=== PATIENT | male | born 1985 | race Caucasian/White ===

== ENCOUNTER 2023-05-25 11:25 | Emergency (ER) | payer OTHER, SELFPAY ==
[2023-05-25 11:36] VITALS: BP 113/79; PULSE 64; RESP 20; TEMP 36.5; O2SAT 96; BMI 34.2
--- NOTE | 2023-05-25 11:42 | ECG_ITS ---
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
--- NOTE | 2023-05-25 11:42 | XR_ITS ---
The [place] [id number] Patient Name: SALOME DONOVAN MRN: [id number] date: 1985 Sex: M Assigned Patient Location: ER Current Patient Location: ED.MAIN Accession/Order Number: [id number] Exam Date: 05/25/2023 11:49 Report Date: 05/25/2023 12:06 At the request of: SUZANNE LITTLEJOHN Procedure: XR chest 1V EXAM: XR chest 1V HISTORY: chest pain COMPARISON: 02/07/2022 TECHNIQUE: AP view of the chest. FINDINGS: The cardiomediastinal silhouette is normal. The lungs are clear. 4 mm pulmonary nodule of the left midlung field, unchanged. There is no pneumothorax. No pleural effusion is noted. The osseous structures are intact. XR/XR chest 1V IMPRESSION: No acute cardiopulmonary process. Electronically authenticated by: MELONIE YOST Date: 05/25/2023 12:06
[2023-05-25 12:01] LABS: Basophils Percent Auto 0.6 % (0.2-2.0); Eosinophils Absolute Auto 0.2 10^3/uL (0.0-0.7); Eosinophils Percent Auto 2.3 % (0.9-7.0); Hematocrit 45.2 % (42.0-54.0); Hemoglobin 15.3 g/dL (14.0-18.0); Immature Granulocytes Abs Auto 0.03 10^3/uL (0.00-0.03); Immature Granulocytes Pct Auto 0.5 % (0.0-0.5); Lymphocytes Absolute Auto 2.9 10^3/uL (1.2-3.8); Lymphocytes Percent Auto 43.5 % (20.5-60.0); Mean Corpuscular HGB Conc 33.8 g/dL (29.9-35.2); Mean Corpuscular Hemoglobin 29.9 pg (25.9-34.0); Mean Corpuscular Volume 88.5 fL (80.0-94.0); Mean Platelet Volume 9.6 fL (9.5-13.5); Monocytes Absolute Auto 0.8 10^3/uL (0.3-0.8); Monocytes Percent Auto 11.8 % (1.7-12.0); Neutrophils Absolute Auto 2.7 10^3/uL (1.4-6.5); Neutrophils Percent Auto 41.3 % (43.0-75.0); Platelet Count 266 10^3/uL (150-450); Red Blood Count 5.11 10^6/uL (4.70-6.10); Red Cell Distribution Width 11.9 % (11.0-15.0); White Blood Count 6.6 10^3/uL (4.0-11.0)
[2023-05-25 12:19] VITALS: BP 121/80; PULSE 55; RESP 18; O2SAT 98
[2023-05-25 12:22] LABS: Alanine Aminotransferase 89 U/L (16-63); Albumin Globulin Ratio 1.2; Albumin Level 4.2 g/dL (3.4-5.0); Alkaline Phosphatase 56 U/L (46-116); Anion Gap 13.6; Aspartate Amino Transferase 34 U/L (15-37); BUN Creatinine Ratio 19.2; Bilirubin Total 0.4 mg/dL (0.2-1.0); Calcium 9.5 mg/dL (8.5-10.1); Carbon Dioxide 27.3 mmol/L (21.0-32.0); Chloride 103 mmol/L (98-107); Estimated GFR (African America >60 (>=60); Estimated GFR (Non-African Ame >60 (>=60); Globulin 3.4 g/dL; Glucose 103 mg/dL (74-106); Potassium 3.9 mmol/L (3.5-5.1); Sodium 140 mmol/L (136-145); Total Protein 7.6 g/dL (6.4-8.2)
[2023-05-25 12:27] LABS: Troponin I High Sensitivity <4.0 pg/mL (4.0-76.1)
--- NOTE | 2023-05-25 12:58 | ED_ITS ---
HPI - General Adult General Chief complaint: Chest Pain Stated complaint: CHEST PAIN Time Seen by Provider: 05/25/23 12:41 Source: patient Mode of arrival: walk-in Limitations: no limitations History of Present Illness HPI narrative: Patient is a 38-year-old male who started having left chest electrical shock that started around 9:45 AM this morning when he was bending over to push parts through. 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 Patient came in at 11:00 to finally to be evaluated. Patient has a heart score of 0. Patient has no rash. Patient has no recent heavy lifting, twisting or turning. No headache. No neck pain. No shortness of breath, nausea, vomiting, or any other acute complaints. Patient does state there is intermittent esophageal spasm. Patient states it will take acid reflux medication intermittently, does not take it daily. No black stool. No other acute complaints. Heart score 0 All systems are negative except as noted/marked. All systems reviewed and otherwise negative. Nurses note and vital signs reviewed and patient is not hypoxic. General: The patient appears well and in no apparent distress. Patient is resting comfortably on cart. Patient is not toxic, lethargic, or listless Skin: Warm, dry, no pallor noted. There is no rash noted. No petechiae, purpura. Head: Normocephalic, atraumatic Eye: Normal conjunctiva, no drainage, EOMI. PERRL Ears, Nose, Mouth, and Throat: oral mucosa is moist. Nares patent. Mouth without vesicles. Cardiovascular: Regular Rate and Rhythm, no murmur, gallop, rub; no reproducible tenderness to palpation to bilateral anterior, lateral, posterior chest wall. Respiratory: Patient is in no distress, no accessory muscle use, lungs are clear to auscultation, no wheezing, rales or rhonchi Back: non-tender, no CVA tenderness bilaterally to percussion. No CT LS midline pain GI: Obese, no tenderness to palpation, no masses appreciated. No rebound, gu arding, or rigidity noted. No distention Musculoskeletal: Patient has full range of motion of all of the extremities, no motor, sensory, or focal neurological deficits Neurological: A&O x4, normal speech Psychiatric: Cooperative Related Data Home Medications Medication Instructions Recorded Confirmed No Known Home Medications 05/25/23 05/25/23 Allergies Allergy/AdvReac Type Severity Reaction Status Date / Time Penicillins Allergy Severe Hives Verified 05/25/23 11:36 Exam Constitutional Vital Signs, click to edit/add: Last Vital Signs Temp 97.7 F 05/25/23 11:36 Pulse 55 L 05/25/23 12:19 Resp 18 05/25/23 12:19 BP 121/80 05/25/23 12:19 Pulse Ox 98 05/25/23 12:19 O2 Del Method Room Air 05/25/23 11:36 Course Vital Signs Vital signs: Vital Signs Temperature 97.7 F 05/25/23 11:36 Pulse Rate 64 05/25/23 11:36 Respiratory Rate 20 05/25/23 11:36 Blood Pressure 113/79 05/25/23 11:36 Pulse Oximetry 96 05/25/23 11:36 Oxygen Delivery Method Room Air 05/25/23 11:36 Temperature 97.7 F 05/25/23 11:36 Pulse Rate 55 L 05/25/23 12:19 Respiratory Rate 18 05/25/23 12:19 Blood Pressure 121/80 05/25/23 12:19 Pulse Oximetry 98 05/25/23 12:19 Oxygen Delivery Method Room Air 05/25/23 11:36 Medical Decision Making MDM Narrative Medical decision making narrative: Heart score 0 Patient lab testing shows no acute findings, EKG was negative. Chest x-ray negative. Patient was given Pepcid and GI cocktail prior to discharge. Patient will follow-up with and establish PCP to have additional outpatient testing if indicated. No questions at discharge. Work note was given with restrictions for the weekend Lab Data Lab results reviewed: Yes I reviewed the patient's lab results Labs: Lab Results 05/25/23 Range/Units 11:48 WBC 6.6 (4.0-11.0) 10^3/uL RBC 5.11 (4.70-6.10) 10^6/uL Hgb 15.3 (14.0-18.0) g/dL Hct 45.2 (42.0-54.0) % MCV 88.5 (80.0-94.0) fL MCH 29.9 (25.9-34.0) pg MCHC 33.8 (29.9-35.2) g/dL RDW 11.9 (11.0-15.0) % Plt Count 266 (150-450) 10^3/uL MPV 9.6 (9.5-13.5) fL Neut % (Auto) 41.3 L (43.0-75.0) % Lymph % (Auto) 43.5 (20.5-60.0) % [place] % (Auto) 11.8 (1.7-12.0) % Eos % (Auto) 2.3 (0.9-7.0) % Baso % (Auto) 0.6 (0.2-2.0) % Neut # (Auto) 2.7 (1.4-6.5) 10^3/uL Lymph # (Auto) 2.9 (1.2-3.8) 10^3/uL [place] # (Auto) 0.8 (0.3-0.8) 10^3/uL Eos # (Auto) 0.2 (0.0-0.7) 10^3/uL Baso # (Auto) 0.0 (0.0-0.1) 10^3/uL Abs Immat Gran (auto) 0.03 (0.00-0.03) 10^3/uL Imm/Tot Granulo (auto) 0.5 (0.0-0.5) % Sodium 140 (136-145) mmol/L Potassium 3.9 (3.5-5.1) mmol/L Chloride 103 (98-107) mmol/L Carbon Dioxide 27.3 (21.0-32.0) mmol/L Anion Gap 13.6 BUN 19.0 H (7.0-18.0) mg/dL Creatinine 0.99 (0.70-1.30) mg/dL Est GFR ( Amer) >60 (>=60) Est GFR (Non-Af Amer) >60 (>=60) BUN/Creatinine Ratio 19.2 Glucose 103 (74-106) mg/dL Calcium 9.5 (8.5-10.1) mg/dL Total Bilirubin 0.4 (0.2-1.0) mg/dL AST 34 (15-37) U/L ALT 89 H (16-63) U/L Alkaline Phosphatase 56 (46-116) U/L Troponin I High Sens <4.0 L (4.0-76.1) pg/mL Total Protein 7.6 (6.4-8.2) g/dL Albumin 4.2 (3.4-5.0) g/dL Globulin 3.4 g/dL Albumin/Globulin Ratio 1.2 Imaging Data Chest x-ray: Radiologist's impression: ITS Impressions Chest X-Ray 05/25/23 11:42 IMPRESSION: No acute cardiopulmonary process. Electronically authenticated by: MELONIE YOST Date: 05/25/2023 12:06 ECG Data Attestation: I personally reviewed and interpreted this ECG as follows: (EKG interpretation. Normal sinus rhythm at 50 beats a minute. Normal axis deviation. No acute ST elevation, no acute ectopy. QTc of 388) Discharge Plan Discharge Stand Alone Forms: Work/School Release, Portal Instructions Chief Complaint: Chest Pain Clinical Impression: Atypical chest pain Patient Disposition: Home, Self-Care Time of Disposition Decision: 13:52 Condition: Fair Prescriptions / Home Meds: No Action No Known Home Medications Instructions: Chest Pain (ED), GERD (Gastroesophageal Reflux Disease) (ED) Additional Instructions: Start taking daily medication for antacid for the next 2 weeks to see if it helps with your pain. Use xygv-hsr-enbhhlx medication such as Pepcid, Zantac, Prilosec or Nexium. Also use cuyt-acp-pleezwb Maalox or Mylanta as needed for acute flareup If you are continuing to have pain or pressure, establish with PCP and have outpatient stress test or echocardiogram as needed or indicated. Return to the ER if any significant symptoms. Referrals: Physician,Non-Staff, MD [Primary Care Provider] - 1 week
[2023-05-25] MEDS: FAMOTIDINE 20 MG TABLET PO (14:01)
[2023-05-25] MEDS: lidocaine HCL 15 ML, MAG HYDROX/ALUMINUM HYD/SIMETH 30 ML, HYOSCYAMINE SULFATE 0.25 MG PO (14:02)
[2023-05-25 14:06] VITALS: BP 121/82; PULSE 60; RESP 18; O2SAT 100
== END 2023-05-25 14:07 | disposition home or self-care (01) ==
PROVIDERS: Emergency Provider Emergency Medicine
DX: R07.89 Other chest pain (principal); E66.9 Obesity, unspecified; Z68.34 Body mass index [BMI] 34.0-34.9, adult
CPT/HCPCS: 36415; 71045; 80053; 84484; 85025; 93005; 99285

== ENCOUNTER 2023-12-07 07:16 | Outpatient (OUT) | payer BC, OTHER, SELFPAY ==
--- OUTSIDE RECORDS SUMMARY | 2023-12-07 07:19 | XMS_ITS | CCD ---
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 Role Phone OLAYINKA, DR SAUCEDO Admitting Unavailable REQUEST, DR JUNIOR LISTED Primary Care Unavailearline DUNN, DR TORIN Jackson Consulting Unavailable OLAYINKA, DR SAUCEDO Attending Unavailable OLAYINKA, DR SAUCEDO Consulting Unavailable ELAYNE ALVARADO Attending Unavailable CHAITANYA BORDEN Consulting Unavailable CHRISTIANO, ELAYNE Admitting Unavailable REQUEST, DR JUNIOR LISTED Primary Care Unavaila KARLA Zhou Consulting Unavailable Vianca Waters Attending Unavailable Allergies Allergy Classification Reported Allergen(s) Allergy Type Date of Onset Reaction(s) Facility (2 sources) Amoxicillin; Translations: [amoxicillin] Drug Allergy [facility] (2 sources) Penicillins; Translations: [penicillins] Drug allergy (disorder) [facility] Problems Active Problems Problem Classification Problem Date Documented Da te Episodic/Chronic Nonspecific chest pain (4 sources) Chest pain, unspecified; Translations: [Other chest pain] Onset: 02-07-2022 Episodic Substance-related disorders (1 source) Nicotine dependence, cigarettes, uncomplicated; Translations: [NICOTINE DEPEND CIGARETTES UNCOMP] Onset: 05-20-2021 Chronic Past or Other Problems Problem Classification Problem Date Documented Da te Episodic/Chronic E Codes: Natural/environment (1 source) Exposure to other specified factors, initial encounter; Translations: [EXPOSURE OTHER SPEC FACTORS INITIAL] Onset: 05-20-2021 Episodic Spondylosis; intervertebral disc disorders; other back problems (4 sources) Pain in thoracic spine; Translations: [PAIN IN THORACIC SPINE] Onset: 05-18-2021 Episodic Sprains and strains (1 source) Strain of muscle and tendon of back wall of thorax, initial encounter; Translations: [STRN MSC TENDON BACK WALL THOR INIT] Onset: 05-20-2021 Episodic Results Test Name Value Interpretation Reference Range Facil ity XR CHEST 1 Von 02-07-2022 XR CHEST 1 V EXAMINATION: XR CHES T 1 V HISTORY: CHEST PAIN, UNSPECIFIED ; right chest pain for 2 days COMPARISON: XR RIBS with PA chest 01/06/2019 FINDINGS: LUNGS: Stable small calcified granuloma within left midlung. Underexpanded lungs on today's study without appreciable infiltrates. VASCULATURE: No increased pulmonary vasculature. PLEURA: No pneumothorax, effusion, or pleural thickening. CARDIAC: No cardiomegaly or cardiac silhouette abnormality. MEDIASTINUM: No visible mass or adenopathy. BONES: No fracture or visible bone lesion. OTHER: Negative. IMPRESSION: 1. Low lung volume examination. 2. No acute cardiopulmonary process. Electronically authenticated by: TORIN DUNN Date: 2022-02-07 09:27 Normal [facility] XR TSPINE 2 VIEWSon 05-19-19 22 XR TSPINE 2 VIEWS EXAM: XR TSPINE 2 VIEWS HISTORY: Acute back pain COMPARISON: None. TECHNIQUE: 3 views FINDINGS: Maintenance of the normal cervical lordosis and thoracic kyphosis. Vertebral body heights and alignments exhibit no fracture or listhesis. 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 Intervertebral disc space heights are unremarkable IMPRESSION: Normal thoracic spine x-rays Electronically authenticated by: KARLA TEJEDA Date: 2021-05-18 19:43 Normal [facility] Encounters Encounter Date Encounter Type Care Provider Facility Start: 12-19-2023 ambulatory Vianca Fong lity:[facility] Start: 02-07-2022 End: 02-07-[address] LEWIS BHAGAT Facility:[facility] Start: 05-18-2021 End: 05-18-2021 ambulatory ELAYNE ALVARADO Facility:[facility] Payers Date Payer Category Payer Unknown [id number] [id number] [id number] 1985 Unknown [id number] [id number] [id number] 1985 Unknown [id number] 1959 Unknown [id number] 1959 Unknown [id number] Summary Purpose Family History No Family History Records FoundNo Family History Records Found Advance Directives No Advanced Directives Records FoundNo Advanced Directives Records Found Additional Source Comments (unrecognized sect ion and content) No Status Records FoundNo Status Records Found INFORMATION SOURCE (unrecogn ized section and content) DATE CREATED AUTHOR 02/18/2022 [facility] DATE CREATED AUTHOR AUTHOR'S SAMEER ATMARISA 12/06/2023 [facility] FOR RECORDS PERTAINING TO PATIENTS WHO ARE OR HAVE BEEN ENROLLED IN A CHEMICAL DEPENDENCY/SUBSTANCEABUSE PROGRAM, SOME INFORMATION MAY BE OMITTED. This clinical summary was aggregated from multiple sources. Caution should be exercised in using it in the provision of clinical care. This summary normalizes information from multiple sources, and as a consequence, information in this document may materially change the coding, format and clinical context of patient data. In addition, data may be omitted in some cases. CLINICAL DECISIONS SHOULD BE BASED ON THE PRIMARY CLINICAL RECORDS. [facility]. provides no warranty or guarantee of the accuracy or completeness of information in this document.
--- NOTE | 2023-12-07 07:21 | CT_ITS ---
The [address] [address] Patient Name: SALOME DONOVAN MRN: [id number] date: 1985 Sex: M Assigned Patient Location: CT Current Patient Location: CT Accession/Order Number: [id number] Exam Date: 12/07/2023 08:30 Report Date: 12/07/2023 09:20 At the request of: YOEL CASTREJON Procedure: CT abdomen pelvis w con EXAM: CT abdomen pelvis w con HISTORY: Abdominal Pain R10.9 COMPARISON: None. TECHNIQUE: Following intravenous administration of 100 cc of Omnipaque 300, axial soft tissue windows of the abdomen and pelvis were performed with coronal and sagittal reformats. CT dose reduction technique was used including Automated Exposure Control. Findings: ABDOMEN: There is fatty infiltration of the liver. Focal fatty sparing adjacent to the gallbladder fossa. The gallbladder, pancreas, and adrenal glands are unremarkable. Splenic calcifications likely relating to prior granulomatous disease. No renal stones or collecting system dilatation. Left renal cysts. There is also a left renal low-attenuation lesion, too small to characterize. The visualized portions of the bilateral ureters are nondilated. The bowel is unremarkable without evidence of thickening or reduction. The appendix is nondilated. The aorta is normal caliber. No enlarged abdominal lymph nodes or free abdominal fluid. Pelvis: Unremarkable bladder. The prostate is nonenlarged. No enlarged pelvic lymph nodes or free pelvic fluid. No aggressive sclerotic or lytic osseous lesions. CT/CT abdomen pelvis w con IMPRESSION: 1. No acute abdominal or pelvic abnormality. 2. Fatty liver. Electronically authenticated by: MERYL WELLER Date: 12/07/2023 09:20
== END 2023-12-07 07:17 | disposition home or self-care (01) ==
LOC: CT 07:17
PROVIDERS: PCP Nurse Practitioner Family; Visit Provider Nurse Practitioner Family
DX: R10.9 Unspecified abdominal pain (principal); K76.0 Fatty (change of) liver, not elsewhere classified
CPT/HCPCS: 74177; Q9967

== ENCOUNTER 2024-04-11 11:38 | Emergency (ER) | payer OTHER, SELFPAY ==
[2024-04-11 11:43] VITALS: BP 135/85; PULSE 66; TEMP 36.6; O2SAT 96; BMI 33.8
--- OUTSIDE RECORDS SUMMARY | 2024-04-11 11:55 | XMS_ITS | CCD ---
Author Organization [facility] CliniSymi Care Team Providers Care Health Information Clerk Name Role Phone DR LEWIS BHAGAT Admitting Unavailable REQUEST, DR JUNIOR LISTED Primary Care Unavailearline DUNN, DR OTRIN Jackson Consulting Unavailable OLAYINKA, DR SAUCEDO Attending Unavailable OLAYNIKA, DR SAUCEDO Consulting Unavailable ELAYNE ALVAARDO Attending Unavailable CHAITANYA BORDEN Consulting Unavailable ELAYNE ALVARADO Admitting Unavailable REQUEST, DR JUNIOR LISTED Primary Care UnavailKARLA Ash Consulting Unavailable OYEL CASTREJON Primary Care Physician [phone] Vianca Waters Admitting Unavailable Vianca Waters Attending Unavailable Vianca Waters Referring Unavailable Vianca Waters Attending Unavailable Vianca Waters Attending Unavailable Allergies Allergy Classification Reported Allergen(s) Allergy Type Date of Onset Reaction(s) Facility (2 sources) Amoxicillin; Translations: [amoxicillin] Drug Allergy [facility] Repository (5 sources) Penicillins; Translations: [penicillins] Drug allergy (disorder) [facility] Repository (3 sources) Amoxicillin; Translations: [amoxicillin] Drug Allergy Unknown (qualifier value) [facility] Medications Current Medications Medication Drug Class(es) Dates Sig (Normalized) Sig (Original) bifidobacterium infantis 4 mg oral capsule (3 sources) Start: 12-31-2019 take 1 capsule by mouth once daily Align 4 mg oral capsule 4 mg = 1 cap(s), Oral, Daily, Take after completing the Antibiotics course, # 28 cap(s), Refills(s) 0, Pharmacy: [facility], 180, cm, 12/30/19 8:59:00 EDT, Height/Length Dosing, 112, kg, 12/30/19 8:59:00 EDT, Weight Dosing Start Date: 12/31/19 Status: Ordered cholestyramine resin 4000 mg powder for oral suspension (3 sources) Bile Acid Sequestrant Start: 12-19-2023 Questran 4 g/9 g oral powder = 1 packet(s), Oral, BID, # 60 EA, Refills(s) 2, Pharmacy: [facility], 180, cm, 12/19/23 14:34:00 EDT, Height/Length Dosing, 115.8, kg, 12/19/23 14:34:00 EDT, Weight Dosing Start Date: 12/19/23 Status: Ordered hyoscyamine sulfate 0.125 mg oral tablet (3 sources) Start: 12-19-2023 hyoscyamine 0.125 mg oral Tab 0.125 mg = 1 tab(s), Oral, PRN Nausea/Vomiting, Refills(s) 0 Start Date: 12/19/23 Status: Ordered linaclotide 0.072 mg oral capsule (1 source) Guanylate Cyclase-C Agonist Start: 01-18-2024 take 1 capsule by mouth once daily Linzess 72 mcg oral capsule 72 mcg = 1 cap(s), Oral, Daily, # 30 cap(s), Refills(s) 3, Pharmacy: [facility], 180, cm, 01/18/24 9:06:00 EST, Height/Length Dosing, 118.9, kg, 01/18/24 9:06:00 EST, Weight Dosing Start Date: 01/18/24 Status: Ordered Aleve (3 sources) Nonsteroidal Anti-inflammatory Drug Start: 12-19-2023 take 1 mg by mouth every twelve hours as needed for pain Aleve mg, Oral, q12hr, PRN as needed for pain, Refills(s) 0 Start Date: 12/19/23 Status: Ordered Start: 12-19-2023 take 1 mg by mouth e very twelve hours Aleve mg, Oral, q12hr, Refills(s) 0 Start Date: 12/19/23 Status: Ordered ondansetron 4 mg oral tablet (3 sources) Serotonin-3 Receptor Antagonist Start: 12-19-2023 take 1 tablet by mouth every eight hours as needed for nausea ondansetron 4 mg Tab 4 mg = 1 tab(s), Oral, q8hr, PRN Nausea/Vomiting, Refills(s) 0 Start Date: 12/19/23 Status: Ordered Protonix 40 mg Tab-EC (3 sources) Start: 01-28-2020 take 1 tablet by mouth twice daily 30 minutes before mealtime Protonix 40 mg Tab-EC 40 mg = 1 tab(s), Oral, BID, Take 30 minutes before meals, # 120 tab(s), Refills(s) 11, Pharmacy: [facility], 180, cm, 12/30/19 8:59:00 EDT, Height/Length Dosing, 112, kg, 12/30/19 8:59:00 EDT, Weight Dosing Start Date: 01/28/20 Status: Ordered Completed/Discontinued Medications Medication Drug Class(es) Dates Sig (Normalized) Sig (Original) psyllium 525 mg oral capsule (3 sources) Start: 12-31-2019 take 8 capsules by mouth once daily Metamucil 525 mg oral capsule 1,050 mg = 2 cap(s), Oral, Daily, Take 2 hour apart from the other medications with at least 8 ounces of water, # 160 cap(s), Refills(s) 1, Pharmacy: [facility], 180, cm, 12/30/19 8:59:00 EDT, Height/Length Dosing, 112, kg, 12/30/19 8:59:00 EDT, Weight Dosing Start Date: 12/31/19 Status: Ordered Problems Active Problems Problem Classification Problem Date Documented Da te Episodic/Chronic Abdominal pain (7 sources) Abdominal pain; Translations: [Unspecified abdominal pain] Onset: 12-19-2023 Episodic Esophageal disorders (5 sources) Gastro-esophageal reflux disease with esophagitis; Translations: [Gastro-esophageal reflux disease with esophagitis] Onset: 12-19-2023 Chronic Nausea and vomiting (5 sources) Vomiting; Translations: [Vomiting, unspecified] Onset: 12-19-2023 Episodic Nonspecific chest pain (4 sources) Chest pain, unspecified; Translations: [Other chest pain] Onset: 02-07-2022 Episodic Other and unspecified benign neoplasm (5 sources) History of polyp of colon; Translations: [Personal history of colon polyps, unspecified] Onset: 12-19-2023 Episodic Other gastrointestinal disorders (5 sources) Irritable bowel syndrome; Translations: [Irritable bowel syndrome without diarrhea] Onset: 12-19-2023 Chronic Other gastrointestinal disorders (5 sources) Diarrhea; Translations: [Diarrhea, unspecified] Onset: 12-19-2023 Episodic Other gastrointestinal disorders (5 sources) Abdominal wind pain; Translations: [Gas pain] Onset: 12-19-2023 Episodic Other gastrointestinal disorders (2 sources) Swollen abdomen; Translations: [Abdominal distension (gaseous)] Onset: 12-19-2023 Episodic Other gastrointestinal disorders (3 sources) Abdominal bloating 12-19-2023 Episodic Other gastrointestinal disorders (1 source) Digestive system finding; Translations: [Other specified symptoms and signs involving the digestive system and abdomen] Onset: 01-18-2024 Episodic Other gastrointestinal disorders (1 source) Defecation straining 01-18-2024 Episodic Residual codes; unclassified (2 sources) Family history of malignant neoplasm of digestive organ; Translations: [Family history of malignant neoplasm of digestive organs] Onset: 12-19-2023 Episodic Residual codes; unclassified (3 sources) Family history of colorectal cancer 12-19-2023 Episodic Substance-related disorders (4 sources) Nicotine dependence, cigarettes, uncomplicated; Translations: [Smoker] Onset: 05-20-2021 02-17-2014 Chronic Comment on above: Added secondary to d ocumentation in Social History. Unclassified (3 sources) Finding of sensation of abdomen 12-19-2023 Past or Other Problems Problem Classification Problem [...] Results Test Name Value Interpretation Reference Range Facility Ambulatory Visit Summaryon 1 03-19-2023 Ambulatory Visit Summary Ambulatory Visit Summary SALOME DONOVAN :1985 Visit Date:01/18/2024 Ambulatory Visit Instructions Your Diagnosis GERD with esophagitis Irritable bowel syndrome Abdominal cramping Bloating Diarrhea History of colon polyps Gas pain Vomiting Family history of rectal cancer Left lower quadrant abdominal pain Straining during bowel movements Your Care Team Attending Physician - Jt LAST, Vianca Silva Primary Care Physician - YOEL CASTREJON CNP This Is Your Medications List linaclotide (Linzess 72 mcg oral capsule) Contact prescribing physician if questions or concerns bifidobacterium infantis (Align 4 mg oral capsule) cholestyramine (Questran 4 g/9 g oral powder) hyoscyamine (hyoscyamine 0.125 mg oral Tab) naproxen (Aleve) ondansetron (ondansetron 4 mg Tab) pantoprazole (Protonix 40 mg Tab-EC) psyllium (Metamucil 525 mg oral capsule) Procedures Performed Colonoscopy (01/01/2024), Colonoscopy, EGD (esophagogastroduoden oscopic) electrohydraulic lithotripsy of bezoar in stomach. Discharge Vitals Heart Rate (Peripheral) 67 Blood Pressure 121/83 Height 180 cm Height 71 in Weight 118.9 kg Weight 261.58 lb BMI 36.7 Medications What How Much When Why Instructions New linaclotide (Linzess 72 mcg oral capsule) 1 Capsules By Mouth Every day GERD with esophagitis Irritable bowel syndrome Abdominal cramping Bloating Diarrhea History of colon polyps Gas pain Vomiting Family history of rectal cancer Left lower quadrant abdominal pain Straining during bowel movements Refills: 3 Pickup at [facility] Unchanged bifidobacterium infantis (Align 4 mg oral capsule) 1 Capsules By Mouth Every day Take after completing the Antibiotics course Contact prescribing physician if questions or concerns Unchanged cholestyramine (Questran 4 g/ 9 g oral powder) 1 Packets By Mouth 2 times a day Contact prescribing physician if questions or concerns Unchanged hyoscyamine (hyoscyamine 0.125 mg oral Tab) 1 Tablets By Mouth As needed for Nausea/Vomiting Contact prescribing physician if questions or concerns Unchanged naproxen (Aleve) By Mouth Every 12 hours as needed for as needed for pain Contact prescribing physician if questions or concerns Unchanged ondansetron (ondansetron 4 mg Tab) 1 Tablets By Mouth Every 8 hours as needed for Nausea/Vomiting Contact prescribing physician if questions or concerns Unchanged pantoprazole (Protonix 40 mg Tab-EC) 1 Tablets By Mouth 2 times a day Take 30 minutes before meals Contact prescribing physician if questions or concerns Unchanged psyllium (Metamucil 525 mg oral capsule) 2 Capsules By Mouth Every day Take 2 hour apart from the other medications with at least 8 ounces of water Contact prescribing physician if questions or concerns Pharmacy Information [facility]: [address], [place] [id number] [phone] Allergies amoxicillin (Unknown) penicillins Problems Ongoing - Any problem that you are currently receiving treatment for. Abdominal cramping Bloating Diarrhea Family history of rectal cancer Gas pain GERD with esophagitis History of colon polyps Irritable bowel syndrome Left lower quadrant abdominal pain Smoker.. Straining during bowel movements Upper abdominal pain Vomiting Patient Survey You may receive a survey via text or e-mail asking about your office visit. Please share your experience with us by completing your survey. We appreciate your feedback and thank you for choosing us for your care. Aleja Mason [facility] Gastroenterology Office/Clin ic Noteon 01-18-2024 Gastroenterology Office/Clinic Note Gastroenterology Office/Clinic Note Chief Complaint Stabbing abdominal pain HPI Staff This is a 38 year old male who presents today for a follow-up to Colonoscopy. Patient c/o stabbing abdominal pain. Patient would like Zofran refilled. Last office visit w/ Dr Waters History of Present Illness a flare of abd pain, bloating, vomiting, and diarrhea Did last for 2 weeks Was put on levison and protonix- it helped dad with rectal cancer below age of 60 diarrhea right after eating anything bloating is still there Assessment/Plan 1. GERD with esophagitis (K21.0: Gastro-esophageal reflux disease with esophagitis) 2. Irritable bowel syndrome (K58.9: Irritable bowel syndrome, unspecified) 3. Abdominal cramping (R10.9: Unspecified abdominal pain) 4. Bloating (R14.0: Abdominal distension (gaseous)) 5. Diarrhea (R19.7: Diarrhea, unspecified) 6. Gas pain (R14.1: Gas pain) 7. Vomiting (R11.10: Vomiting, unspecified) 8. History of colon polyps (Z86.0100: Personal history of colon polyps, unspecified) 9. Family history of rectal cancer (Z80.0: Family history of malignant neoplasm of digestive organs) Continue Levsin and PPI Start on Questran twice daily Schedule colonoscopy with random colon biopsies and TI evaluation Might benefit from neuromodulator in the future Colonoscopy w/ Dr Waters 01/01/24 Impression and Plan lax anal tone Skin tags and internal hemorrhoids Diverticulosis Past postmenopausal biopsies Recommendations: Repeat colonoscopy:: In 10 years. Final Diagnosis (Verified) COLON, RANDOM BIOPSY: ??? COLONIC MUCOSA WITH LYMPHOID AGGREGATES, WITHIN NORMAL LIMITS. History of Present Illness I have reviewed HPI staff note, most recent labs and imaging, I agree with the above documentation with the following additions/exceptions : pt with some pain in the stomach comes and goes pt feels life draining out of him pt used to have stabbing pain and gas pt was throwing up Pt felt good after the colonoscopy pt could move 6 BMs a day- sometimes small amounts bloating and gassy some incomplete evacuation Review of Systems PHQ Score Initial Depression Screen Score: 2 SCORE All systems reviewed, negative except as mentioned above Physical Exam Vitals & Measurements HR: 67(Peripheral) BP: 121/83 HT: 71 in HT: 180 cm WT: 118.9 kg WT: 261.58 lb BMI: 36.7 General: alert, no acute distress HEENT: atraumatic normocephalic Cardiovascular: regular rate and rhythm, normal peripheral perfusion Respiratory: Lungs CTA, respirations non labored Extremities: no deformity, no trauma Abdomen: Benign, soft, tender in the left lower abdomen, nondistended Assessment/Plan 1. GERD with esophagitis (K21.0: Gastro-esophageal reflux disease with esophagitis) Ordered: linaclotide, 72 mcg = 1 cap(s), Oral, Daily, # 30 cap(s), Refills(s) 3, Pharmacy: [facility], 180, cm, 01/18/24 9:06:00 EST, Height/Length Dosing, 118.9, kg, 01/18/24 9:06:00 EST, Weight Dosing 2. Irritable bowel syndrome (K58.9: Irritable bowel syndrome, unspecified) Ordered: linaclotide, 72 mcg = 1 cap(s), Oral, Daily, # 30 cap(s), Refills(s) 3, Pharmacy: [facility], 180, cm, 01/18/24 9:06:00 EST, Height/Length Dosing, 118.9, kg, 01/18/24 9:06:00 EST, Weight Dosing 3. Abdominal cramping (R10.9: Unspecified abdominal pain) Ordered: linaclotide, 72 mcg = 1 cap(s), Oral, Daily, # 30 cap(s), Refills(s) 3, Pharmacy: [facility], 180, cm, 01/18/24 9:06:00 EST, Height/Length Dosing, 118.9, kg, 01/18/24 9:06:00 EST, Weight Dosing 4. Bloating (R14.0: Abdominal distension (gaseous)) Ordered: linaclotide, 72 mcg = 1 cap(s), Oral, Daily, # 30 cap(s), Refills(s) 3, Pharmacy: [facility], 180, cm, 01/18/24 9:06:00 EST, Height/Length Dosing, 118.9, kg, 01/18/24 9:06:00 EST, Weight Dosing 5. Diarrhea (R19.7: Diarrhea, unspecified) Ordered: linaclotide, 72 mcg = 1 cap(s), Oral, Daily, # 30 cap(s), Refills(s) 3, Pharmacy: [facility], 180, cm, 01/18/24 9:06:00 EST, Height/Length Dosing, 118.9, kg, 01/18/24 9:06:00 EST, Weight Dosing 6. History of colon polyps (Z86.0100: Personal history of colon polyps, unspecified) Ordered: linaclotide, 72 mcg = 1 cap(s), Oral, Daily, # 30 cap(s), Refills(s) 3, Pharmacy: [facility], 180, cm, 01/18/24 9:06:00 EST, Height/Length Dosing, 118.9, kg, 01/18/24 9:06:00 EST, Weight Dosing 7. Gas pain (R14.1: Gas pain) Ordered: linaclotide, 72 mcg = 1 cap(s), Oral, Daily, # 30 cap(s), Refills(s) 3, Pharmacy: [facility], 180, cm, 01/18/24 9:06:00 EST, Height/Length Dosing, 118.9, kg, 01/18/24 9:06:00 EST, Weight Dosing 8. Vomiting (R11.10: Vomiting, unspecified) Ordered: linaclotide, 72 mcg = 1 cap(s), Oral, Daily, # 30 cap(s), Refills(s) 3, Pharmacy: [facility], 180, cm, 01/18/24 9:06:00 EST, Height/Length Dosing, 118.9, kg, 01/18/24 9:06:00 EST, Weight Dosing 9. Family history of rectal cancer (Z80.0: Fam (more content not included)... Normal [facility] Comment on above: Result Comment: Elec tronically Signed By: Jt LAST, Vianca Silva\.br\Date and Time Signed: 01/18/24 09:25 EST Reminderson 01-16-2024 Reminders Reminders From: Destiny Stallings To: [facility] - Reminders/Recalls; Sent: 01/16/2024 15:40:53 EST Show up: 12/02/2028 15:39:00 EDT Subject: Ambulatory Reminder- colonoscopy 5 year recall Due Date/Time: 01/01/2029 15:38:00 EDT Reminder/Recall Colonoscopy Dr Waters- 01/02/24 5 year recall due too family history. Normal [facility] Reminders Reminders From: Destiny Stallings To: [facility] - Reminders/Recalls; Sent: 01/15/2024 13:05:33 EST Show up: 01/14/2034 13:05:00 EST Subject: Ambulatory Reminder- 10 year colonoscopy Due Date/Time: 01/14/2034 13:05:00 EST Reminder/Recall Colonoscopy Dr Waters-01/01/24 10 years Normal [facility] Comment on above: Other Comment: Famil y history of rectal cancer. Changing to 5 year recall. Surgical Pathology Reporton 01-03-2024 Surgical Pathology Report [facility] [address] [place] [address]- Surgical Pathology Report Collected Date/Time: 01/01/2024 11:09 EDT Pathologist: Jewel LAST PhD, Michael Limon Received Date/Time: 01/01/2024 13:38 EDT Jt LAST, Vianca Rivas. Jt LAST, Vianca Burris Surgical Pathology Report - 01/03/2024 12:53 EDT - Auth (Verified) Final Diagnosis COLON, RANDOM BIOPSY: - COLONIC MUCOSA WITH LYMPHOID AGGREGATES, WITHIN NORMAL LIMITS. (Electronic Signature) Michael Holloway MD PhD 01/03/2024 12:53 Clinical Information Diarrhea, abdominal cramping, family history of rectal cancer Pre-Op Diagnosis: Diarrhea, abdominal cramping, family history of rectal cancer Procedure: Colonoscopy Post-Op Diagnosis: 1.Lax anal tone 2.Skin tags and internal hemorrhoids 3.Diverticulosis Specimen(s) Received Random colon biopsy Gross Description Received in formalin labeled with patient name, number, and random colon biopsy are multiple fragments of kohli/pink tissue ranging from less than 0.1 cm up to 0.3 cm in greatest dimension. Specimen is entirely submitted in one cassette. (DC) DC:MCA Microscopic Description Microscopic examination performed unless gross only specified. Normal [facility] Comment on above: Performed By: #### [id number] #### [facility] [address] [place] [address] Main OR Intraoperative Recor don 01-02-2024 Main OR Intraoperative Record Main OR Intraoperative Record IntraOp Document Type FT Summary Primary Physician: Vianca Waters MD Finalized Date/Time: 01/02/24 14:49:43 Pt. Name: SALOME DONOVAN/Sex: 1985 Male Med Rec #: [id number] Physician: Vianca Waters MD Financial #: [id number] Pt. Type: O Room/Bed: / Admit/Disch: 01/01/24 10:02:07 - 01/01/24 23:59:59 Institution: Case Times FT Entry 1 Patient Times In Room 01/01/24 10:59:00 Out Room 01/01/24 11:16:00 Procedure Times Start 01/01/24 11:03:00 Stop 01/01/24 11:13:00 Anesthesia Times Start 01/01/24 10:59:00 Stop 01/01/24 11:16:00 Time at [facility] 01/01/24 11:05:00 Last Modified By: Margie MURCIA, 01/01/24 11:15:46 General Comments: 01/02/24 Chart opened to review and send charges [facility]FA Case Attendance FT Entry 1 Entry 2 Entry 3 Case Attendee Beverly Werner CRNA, RN, Monique Degroot Role Performed SCRIPT MANAGER Rehabilitation Counselor - Primary Scrub - Primary Time In 01/01/24 10:59:00 01/01/24 10:59:00 01/01/24 10:59:00 Time Out 01/01/24 11:16:00 01/01/24 11:16:00 01/01/24 11:16:00 Procedure COLONOSCOPY(.) COLONOSCOPY(.) COLONOSCOPY(.) Comments Dr. Fuller supervising Last Modified By: Margie RN, Angela Hanson RN, Angela Hanson RN, 01/01/24 11:15:47 01/01/24 11:15:47 01/01/24 11:15:47 Entry 4 Entry 5 Case Attendee Verena Mora MD, Vianca Silva Role Performed Staff - Other Surgeon - Primary Time In 01/01/24 10:59:00 01/01/24 10:59:00 Time Out 01/01/24 11:16:00 01/01/24 11:16:00 Procedure COLONOSCOPY(.) COLONOSCOPY(.) Comments help in room Last Modified By: Margie MURCIA, Angela Hanson RN, 01/01/24 11:15:47 01/01/24 11:15:47 Perioperative Protocols FT Pre-Care Text: Implements protective measures prior to operative or invasive procedure, confirms identity before the operative or invasive procedure, verifies operative procedure, surgical site, and laterality Entry 1 Procedure(s) COLONOSCOPY(.) Patient Identity Birthday, ID Band Verified (select at Check, Patient least 2): Participation Consents / H and P Anesthesia Consent, Operative Site N/A Verified H&P, Surgery/Procedure Marking Verified Consent Surgical Site No Laterality Verified n/a Verified Procedure Verified Yes Correct Patient Yes Position Verified Availability Equipment, Medication Prep Dry n/a Verified (If Applicable) PreOp Antibiotic No Time Out Beverly Werner CRNA, Given Participants Margie MURCIA, , Miles, Morgan Siddiqi Micala E, Mouchli MD, Vianca Silva Time Out Complete 01/01/24 11:00:00 Outcomes Met? Yes Last Modified By: Angela Hanson RN 01/01/24 11:07:40 Post-Care Text: The patient is free from signs and symptoms of injury caused by extraneous objects Allergy Information FT Pre-Care Text: Verifies allergies Entry 1 Allergies Reviewed? Yes Allergies Reviewed Self/Patient With Outcomes Met? Yes Last Modified By: Angela Hanson RN 01/01/24 11:07:46 Post-Care Text: The patient received appropriate medication(s) safely administered during the perioperative period Surgical Procedures FT Entry 1 Procedure Description Procedure COLONOSCOPY Modifiers . Surgeon Description Colonoscopy with random colon biopsy Primary Procedure Yes Primary Surgeon Jt LAST, Vianca Silva Start 01/01/24 11:03:00 Stop 01/01/24 11:13:00 Anesthesia Type General Surgical Service Gastroenterology Wound Class 2 - Clean-Contaminated Last Modified By: Angela Hanson RN 01/01/24 11:14:38 General Case Data FT Pre-Care Text: Classifies surgical wound, implements aseptic technique, initiates traffic control Entry 1 Case Information OR ENDO 1 FT Case Level Level 2 Wound Class 2 - Clean-Contaminated Specialty Gastroenterology ASA Class 2 Preop Diagnosis DIARRHEA, ABDOMINAL Postop Same As Preop No CRAMPING, FAMILY HISTORY OF RECTAL CANCER Postop Diagnosis Diverticulosis and Outcomes Met? Yes internal hemorrhoids Last Modified By: Angela Hanson RN 01/01/24 11:15:02 Post-Care Text: The patient is free from signs and symptoms of infection Skin Assessment (Pre Procedure) FT Pre-Care Text: Implements protective measures to prevent skin/ tissue injury due to thermal or mechanical sources Evaluates for signs and symptoms of physical injury to skin and tissue Entry 1 Skin Integrity Intact, [place], Warm, & Skin Abnormality No Dry Outcomes Met? Yes Last Modified By: Angela Hanson RN 01/01/24 11:08:35 Post-Care Text: The patient is free from signs and symptoms of injury caused by extraneous objects Patient Positioning FT Pre-Care Text: Identifies physical alterations that require additional precautions for procedure-specific positioning, verifies presence of prosthetics or corrective devices, positions the patient, evaluates the patient for signs and symptoms of injury as a result of positioning Entry 1 Procedure COLONOSCOPY(. (more content not included)... Normal [facility] Discharge Instructionson Discharge Instructions Discharge Instructions SALOME DONOVAN :1985 Visit Date:01/01/2024 Inpatient Discharge Instructions Your Care Team Admitting Physician - Vianca Waters MD Referring Physician - Vianca Waters MD Reason for Your Visit DIARRHEA, ABDOMINAL CRAMPING, FAMILY HISTORY OF RECTAL CANCER Your Diagnosis Anal skin tag Diverticulosis Hemorrhoids, internal Tests Performed Pathology Tissue Exam -- Results Pending -- Please visit your patient portal for your results or contact your primary care physician. This Is Your Medications List bifidobacterium infantis (Align 4 mg oral capsule) cholestyramine (Questran 4 g/9 g oral powder) hyoscyamine (hyoscyamine 0.125 mg oral Tab) naproxen (Aleve) ondansetron (ondansetron 4 mg Tab) pantoprazole (Protonix 40 mg Tab-EC) psyllium (Metamucil 525 mg oral capsule) Procedure History Colonoscopy (01/01/2024), Colonoscopy, EGD (esophagogastroduoden oscopic) electrohydraulic lithotripsy of bezoar in stomach. What to do next Instructions From Your Doctor No qualifying data available. Previously Scheduled Follow-Up Appointments Sunday 8:45 AM EST With: Vianca Waters MD Where: [facility] [address] [place], [place] [id number] Medications What How Much When Instructions Next Dose Unchanged bifidobacterium infantis (Align 4 mg oral capsule) 1 Capsules By Mouth Every day Take after completing the Antibiotics course Unchanged cholestyramine (Questran 4 g/ 9 g oral powder) 1 Packets By Mouth 2 times a day Unchanged hyoscyamine (hyoscyamine 0.125 mg oral Tab) 1 Tablets By Mouth As needed for Nausea/Vomiting Unchanged naproxen (Aleve) By Mouth Every 12 hours as needed for as needed for pain Unchanged ondansetron (ondansetron 4 mg Tab) 1 Tablets By Mouth Every 8 hours as needed for Nausea/Vomiting Unchanged pantoprazole (Protonix 40 mg Tab-EC) 1 Tablets By Mouth 2 times a day Take 30 minutes before meals Unchanged psyllium (Metamucil 525 mg oral capsule) 2 Capsules By Mouth Every day Take 2 hour apart from the other medications with at least 8 ounces of water Test Results No qualifying data available. Allergies amoxicillin (Unknown) penicillins Problems Ongoing - Any problem that you are currently receiving treatment for. Abdominal cramping Bloating Diarrhea Family history of rectal cancer Gas pain GERD with esophagitis History of colon polyps Irritable bowel syndrome Smoker.. Upper abdominal pain Vomiting Education Materials Hemorrhoids Hemorrhoids are swollen veins that may form: ? In the butt (rectum). These are called internal hemorrhoids. ? Around the opening of the butt (anus). These are called external hemorrhoids. Most hemorrhoids do not cause very bad problems. They often get better with changes to your lifestyle and what you eat. What are the causes? ? Having trouble pooping (constipation) or watery poop (diarrhea). ? Pushing too hard when you poop. ? . ? Being very overweight (obese). ? Sitting for too long. ? Riding a bike for a long time. ? Heavy lifting or other things that take a lot of effort. ? Anal sex. What are the signs or symptoms? ? Pain. ? Itching or soreness in the butt. ? Bleeding from the butt. ? Leaking poop. ? Swelling. ? One or more lumps around the opening of your butt. How is this treated? In most cases, hemorrhoids can be treated at home. You may be told to: ? Change what you eat. ? Make changes to your lifestyle. If these treatments do not help, you may need to have a procedure done. Your doctor may need to: ? Place rubber bands at the bottom of the hemorrhoids to make them fall off. ? Put medicine into the hemorrhoids to shrink them. ? Shine a type of light on the hemorrhoids to cause them to fall off. ? Do surgery to get rid of the hemorrhoids. Follow these instructions at home: Medicines ? Take zczz-hfo-[id number] and prescription medicines only as told by your doctor. ? Use creams with medicine in them or medicines that you put in your butt as told by your doctor. Eating and drinking ? Eat foods that have a lot of fiber in them. These include whole grains, beans, nuts, fruits, and vegetables. ? Ask your doctor about taking products that have fiber added to them (fibersupplements). ? Take in less fat. You can do this by: ? Eating low-fat dairy products. ? Eating less red meat. ? Staying away from processed foods. ? Drink enough fluid to keep your pee (urine) pale yellow. Managing pain and swelling ? Take a warm-water bath (sitz bath) for 20 minutes to ease pain. Do this 3?4 times a day. You may do this in a bathtub. You may also use a portable sitz bath that fits over the toilet. ? If told (more content not included)... Normal [facility] Comment on above: Result Comment: Elec tronically Signed By: Sara Simmons I\.br\Date and Time Signed: 01/01/24 11:23 EDT H&P Updateon 01-01-2024 H&P Update H&P Update Patient: SALOME DONOVAN Age: 38 years Sex: Male : 1985 Associated Diagnoses: None Author: Vianca Waters MD Preoperative Information Chief compliant/Indication for procedure: Diarrhea Chief Complaint as above Review of Systems All systems reviewed, negative except as mentioned above Physical Examination Vital Signs (last 24 hrs) Last Charted Temp Temporal 36.6 DegC (DEC 31 10:30) Heart Rate Monitored 67 bpm (DEC 31 10:30) Resp Rate 17 br/min (DEC 31 10:30) SBP 121 mmHg (DEC 31 10:30) DBP 74 mmHg (DEC 31 10:30) Weight 115.8 kg (DEC 31 09:28) General: in Nad Abdomen: Soft, NTND Impression and Plan Diagnosis: Diarrhea - colonoscopy [facility] Main OR PACU II Recordon Main OR PACU II Record Main OR PACU II Record PACU Phase II Document Type FT Summary Primary Physician: Vianca Waters MD Finalized Date/Time: 01/01/24 11:50:23 Pt. Name: SALOME DONOVAN Ellyn/Sex: 1985 Male Med Rec #: [id number] Physician: Vianca Waters MD Financial #: [id number] Pt. Type: O Room/Bed: / Admit/Disch: 01/01/24 10:02:07 - Institution: Case Times PACU II FT Pre-Care Text: Identifies barriers to communication and implements measures to provide psychological support and determines knowledge level Develops individualized plan of care, and ensures continuity of care Maintains patient's dignity and privacy, and maintains patient confidentiality Identifies and reports philosophical, cultural, and spiritual beliefs and values Identifies individual values and wishes concerning care administers prescribed antibiotic therapy and immunizing agents as ordered, Evaluates postoperative tissue perfusion Implements thermoregulation measures, and monitors body temperature Evaluates postoperative respiratory status Evaluates postoperative cardiac status Evaluates postoperative neurological status Assesses pain control, collaborated in initiating patient-controlled analgesia and implements alternative methods of pain control Verifies allergies, administers prescribed medications and solutions, evaluates response to medications Entry 1 In PACU II 01/01/24 11:18:00 Discharge from PACU 01/01/24 11:38:00 II Outcomes Met? Yes Last Modified By: Sara Simmons I 01/01/24 11:49:19 Post-Care Text: The patient demonstrates knowledge of the expected response to the operative or invasive procedure The patient's care is consistent with the individualized perioperative plan of care The patient's right to privacy is maintained The patient's value system, lifestyle, ethnicity, and culture are considered, respected, and incorporated into the perioperative plan of care The patient participates in decisions affecting his or her perioperative plan of care. The patient is free from signs and symptoms of infection The patient has wound/tissue perfusion consistent with or improved from baseline levels established preoperatively The patient is at or returning to normothermia at the conclusion of the immediate postoperative period The patient's respiratory function is consistent with or improved from baseline levels established preoperatively The patient's cardiovascular status is consistent with or improved from baseline levels established preoperatively The patient's neurological status is consistent with or improved from baseline levels established preoperatively The patient demonstrates and/or reports adequate pain control throughout the perioperative period The patient received appropriate medication(s), safely administered during the perioperative period Finalized By: Sara Simmons I Document Signatures Signed By: Sara Simmons I 01/01/24 11:49 Sara Simmons I 01/01/24 11:50 Normal [facility] Main OR Preoperative Recordo n 01-01-2024 Main OR Preoperative Record Main OR Preoperative Record Holding Area Document Type FT Summary Primary Physician: Vianca Waters MD Finalized Date/Time: 01/01/24 10:24:49 Pt. Name: SALOME DONOVAN Ellyn/Sex: 1985 Male Med Rec #: [id number] Physician: Vianca Waters MD Financial #: [id number] Pt. Type: O Room/Bed: / Admit/Disch: 01/01/24 10:02:07 - Institution: Case Times Holding FT Pre-Care Text: Verifies consent for planned procedure, identifies individual values and wishes concerning care, includes family members in perioperative teaching Secures patient's records' belongings, and valuables, maintains patient's dignity and privacy, and maintains patient confidentiality Entry 1 In Holding 01/01/24 10:18:00 Outcomes Met? Yes Last Modified By: Staci Sandy RN 01/01/24 10:23:29 Post-Care Text: The patient participates in decisions affecting his or her perioperative plan of care The patient's right to privacy is maintained Surgery Checklist FT Entry 1 Patient Birthday, ID Band Procedure History and Physical, Identification: Check, Patient Verification: Surgical Consent, With Participation Patient NPO after Midnight: Yes Results Reviewed Yellow Comments: Personal Items: Glasses, Jewelry Personal Items Glassess, ring Comment: Limitations: Vision Complaints of Pain: Yes Pain Comment: Abd 06/19 Operative Site n/a Marking: Availability Equipment Verified: Does Patient Smoke No Patient states Yes Comment - Adult postop adult Supervision supervision available Case Cancelled in No Holding Area see comments below for reason Last Modified By: Staci Sandy RN 01/01/24 10:24:47 General Comments: Pt completed prep at 0530 and remained NPO since/KOBERN Finalized By: Staci Sandy RN Document Signatures Signed By: Staci Sandy RN 01/01/24 10:24 Normal [facility] Operative Reporton Operative Report Operative Report Patient: SALOME DONOVAN Age: 38 years Sex: Male : 1985 Associated Diagnoses: None Author: Vianca Waters MD Pre-Procedure Procedure Date 01/01/2024 11:15:00 . Procedure Type: Colonoscopy with biopsy. Procedure provider Performed by Vianca Waters MD. Current history and physical Documented on chart. Colonoscopy ([id number]). EGD (esophagogastroduoden oscopic) electrohydraulic lithotripsy of bezoar in stomach ([id number]).. Past Medical History Active Upper abdominal pain ([id number]). Family History Alcoholism Father Brother Rectal cancer Father . Procedure History Colonoscopy ([id number]). EGD (esophagogastroduoden oscopic) electrohydraulic lithotripsy of bezoar in stomach ([id number]).. Colorectal neoplasm risk assessment Average risk. Informed Consent After discussing the rationale, risks and benefits, and alternatives to this procedure, the patient provided signed consent for the procedure. Pre-procedure diagnosis: Diarrhea, clinically significant. Medications (Selected) Inpatient Medications Ordered Lactated Ringers IV Pau 1000 mL 1,000 mL: 1,000 mL, IV, 100 mL/hr, Routine, Start date 01/01/24 7:36:00 EDT, 10 hour(s), Total volume (mL): 1,000, 115.8 kg, 2.41, m2 Sodium Chloride 0.9% IV Pau 1000 mL 1,000 mL: 1,000 mL, IV, 20 mL/hr, Routine, Start date 01/01/24 6:52:00 EDT, 50 hour(s), Total volume (mL): 1,000, 115.8 kg, 2.41, m2 Prescriptions Prescribed Align 4 mg oral capsule: 4 mg = 1 cap(s), Oral, Daily, Take after completing the Antibiotics course, # 28 cap(s), Refills(s) 0, Pharmacy: [facility], 180, cm, 12/30/19 8:59:00 EDT, Height/Length Dosing, 112, kg, 12/30/19 8:59:00 EDT, Weight Dosing Metamucil 525 mg oral capsule: 1,050 mg = 2 cap(s), Oral, Daily, Take 2 hour apart from the other medications with at least 8 ounces of water, # 160 cap(s), Refills(s) 1, Pharmacy: [facility], 180, cm, 12/30/19 8:59:00 EDT, Height/Length Dosing, 112, kg, 12/30/19 8:59:0... Protonix 40 mg Tab-EC: 40 mg = 1 tab(s), Oral, BID, Take 30 minutes before meals, # 120 tab(s), Refills(s) 11, Pharmacy: [facility], 180, cm, 12/30/19 8:59:00 EDT, Height/Length Dosing, 112, kg, 12/30/19 8:59:00 EDT, Weight Dosing Questran 4 g/9 g oral powder: = 1 packet(s), Oral, BID, # 60 EA, Refills(s) 2, Pharmacy: [facility], 180, cm, 12/19/23 14:34:00 EDT, Height/Length Dosing, 115.8, kg, 12/19/23 14:34:00 EDT, Weight Dosing Documented Medications Documented Aleve: mg, Oral, q12hr, PRN as needed for pain, Refills(s) 0 hyoscyamine 0.125 mg oral Tab: 0.125 mg = 1 tab(s), Oral, PRN Nausea/Vomiting, Refills(s) 0 ondansetron 4 mg Tab: 4 mg = 1 tab(s), Oral, q8hr, PRN Nausea/Vomiting, Refills(s) 0 ASA Classification: Class II. . Monitoring: See anesthesia record. . Procedure The procedure was performed in the hospital. See anesthesia record for sedation given during procedure. The patient was positioned starting in the left lateral decubitus position. Endoscope type used was a pediatric-size. The endoscope was lubricated then introduced through the anus. The scope was advanced to the terminal ileum. No difficulties encountered during the procedure. The bowel preparation quality was good and was adequate (see polyps greater than or equal to 6 millimeters). The patient tolerated the procedure well. Last colonoscopy Time to cecum: 2 min Time of withdrawal:8 min Findings 1. External anal skin tags. Lax anal tone. Small internal hemorrhoids seen on retroflexion 2. Diverticulosis in the right colon. otherwise normal colon, random biopsies were obtained to rule out microscopic colitis 3. Normal Terminal ileum Images Procedure images: [email or web address]_[email or web address]_ _[id number].jpg Rec1_hd_video_2023_ _[id number].jpg Rec1_hd_video_2023_ _[id number].jpg Rec1_hd_video_2023_ _[id number].jpg Rec1_hd_video_2023_ _[id number].jpg Rec1_hd_video_2023_ _[id number].jpg . Post-Procedure Complications: none. Estimated blood loss: Minimal. Specimens: sent to pathology. Devices/ implants: none left in place. Impression and Plan lax anal tone Skin tags and internal hemorrhoids Diverticulosis Past postmenopausal biopsies Recommendations: Repeat colonoscopy:: In 10 years. Follow-up:: in clinic for 1-2 weeks when pathology is available. Diet:: Previous. Medication resumption:: Continue current medications, Avoid NSAIDs. Return to activities:: After 24 hours. Education and Follow-up: Counseled: Patient, Family. [facility] Comment on above: Result Comment: Elec tronically Signed By: Jt LAST, Vianca Olguin.br\Date and Time Signed: 01/01/24 11:16 EDT Other Comment: Glenis ellsworth Attachment - attachment storage system not supported [id number] Can be viewed in source systemMissing Attachment - attachment storage system not supported [id number] Can be viewed in source systemMissing Attachment - attachment storage system not supported [id number] Can be viewed in source systemMissing Attachment - attachment storage system not supported [id number] Can be viewed in source systemMissing Attachment - attachment storage system not supported [id number] Can be viewed in source systemMissing Attachment - attachment storage system not supported [id number] Can be viewed in source system Ambulatory Visit Summaryon 1 Ambulatory Visit Summary Ambulatory Visit Summary SALOME DONOVAN :1985 Visit Date:12/19/2023 Ambulatory Visit Instructions Your Diagnosis GERD with esophagitis Irritable bowel syndrome Abdominal cramping Bloating Diarrhea Gas pain Vomiting History of colon polyps Family history of rectal cancer Your Care Team Attending Physician - Vianca Waters MD Primary Care Physician - YOEL CASTREJON CNP This Is Your Medications List cholestyramine (Questran 4 g/9 g oral powder) Contact prescribing physician if questions or concerns bifidobacterium infantis (Align 4 mg oral capsule) hyoscyamine (hyoscyamine 0.125 mg oral Tab) naproxen (Aleve) ondansetron (ondansetron 4 mg Tab) pantoprazole (Protonix 40 mg Tab-EC) psyllium (Metamucil 525 mg oral capsule) Procedures Performed Colonoscopy, EGD (esophagogastroduoden oscopic) electrohydraulic lithotripsy of bezoar in stomach. Discharge Vitals Heart Rate (Peripheral) 66 Blood Pressure 121/78 Height 180 cm Height 71 in Weight 115.8 kg Weight 254.76 lb BMI 35.74 What to do next Scheduled Follow-Up Appointments Sunday 8:45 AM EST With: Vianca Waters MD Where: [facility] [address] [place] [id number]- Medications What How Much When Instructions New cholestyramine (Questran 4 g/ 9 g oral powder) 1 Packets By Mouth 2 times a day Refills: 2 Pickup at [facility] Unchanged bifidobacterium infantis (Align 4 mg oral capsule) 1 Capsules By Mouth Every day Take after completing the Antibiotics course Contact prescribing physician if questions or concerns Unchanged hyoscyamine (hyoscyamine 0.125 mg oral Tab) Contact prescribing physician if questions or concerns Unchanged naproxen (Aleve) By Mouth Every 12 hours Contact prescribing physician if questions or concerns Unchanged ondansetron (ondansetron 4 mg Tab) Contact prescribing physician if questions or concerns Unchanged pantoprazole (Protonix 40 mg Tab-EC) 1 Tablets By Mouth 2 times a day Take 30 minutes before meals Contact prescribing physician if questions or concerns Unchanged psyllium (Metamucil 525 mg oral capsule) 2 Capsules By Mouth Every day Take 2 hour apart from the other medications with at least 8 ounces of water Contact prescribing physician if questions or concerns Pharmacy Information [facility]: [address], [place] [id number] [phone] Allergies amoxicillin (Unknown) penicillins Problems Ongoing - Any problem that you are currently receiving treatment for. Abdominal cramping Bloating Diarrhea Family history of rectal cancer Gas pain GERD with esophagitis History of colon polyps Irritable bowel syndrome Smoker.. Upper abdominal pain Vomiting Patient Survey You may receive a survey via text or e-mail asking about your office visit. Please share your experience with us by completing your survey. We appreciate your feedback and thank you for choosing us for your care. Normal [facility] Gastroenterology Office/Clin ic Noteon 12-19-2023 Gastroenterology Office/Clinic Note Gastroenterology Office/Clinic Note Chief Complaint Abdominal pain HPI Staff Patient is a(n) 38 year old male who was referred by Jalen for abdominal pain. C/o gas, bloating, abd cramping, vomiting and diarrhea. Taking Pantoprazole 40mg daily. PCP started Levsin TID PRN. Father rectal cancer Last visit 04/05/20 w/Dr. Gurrola: History of Present Illness This is a 35 year old male who presents today for follow up, IBS, prescribed fiber, Levsin BID helps with urgency, and Flagyl/Align at last visit- pt never took the align.Currently on Opioids and having 1 BM every 2 days Abdominal pain, resolved Chronic for the past 10 years, intermittent - EGD 12/25/18: Grade B esophagitis, fundic gland - GES 01/09/20: Normal - H pylori 12/25/18 : Negative GERD w/ esophagitis, taking pantoprazole 40 BID-improved since last v Assessment/Plan 1. Irritable bowel syndrome (K58.9: Irritable bowel syndrome without diarrhea) Controlled Colonoscopy 04/09/15 which biopsies from the ascending colon and rectum were normal, there was 1 small SSA in the ascending colon Continue fiber and Levsin 2. GERD with esophagitis (K21.0: Gastro-esophageal reflux disease with esophagitis) EGD 12/25/18: Grade B esophagitis, fundic gland polyps and normal esophageal biopsies Symptoms improved with Protonix 40 mg daily Trial of decreasing Protonix to QD CT 12/07/23 @ [place] [facility]: IMPRESSION: 1. No acute abdominal or pelvic abnormality. 2. Fatty liver. EGD 12/25/18: Impression and Plan LA grade B esophagitis Two diminutive polyps suggestive of fundic gland polyps, removed Mild bulbar duodenitis Recommendations: 5. Check H.Pylori serology Pathology: Final Diagnosis (Verified) A: POLYPS, STOMACH, POLYPECTOMY: ? FUNDIC GLAND POLYPS. B: ESOPHAGUS, BIOPSY: ? ESOPHAGEAL SQUAMOUS MUCOSA WITHIN NORMAL LIMITS. GES 01/09/20: IMPRESSION: NORMAL GASTRIC EMPTYING. Labs 05/25/23 @ [place]: BUN 19.0 (H) ALT 89 (H) CBC - normal History of Present Illness I have reviewed HPI staff note, most recent labs and imaging, more than 30 minutes spent reviewing the chart, during encounter, placing orders and counseling the patient. a flare of abd pain, bloating, vomiting, and diarrhea Did last for 2 weeks Was put on levison and protonix- it helped dad with rectal cancer below age of 60 diarrhea right after eating anything bloating is still there Review of Systems PHQ Score Initial Depression Screen Score: 0 SCORE All systems reviewed, negative except as mentioned above Physical Exam Vitals & Measurements HR: 66(Peripheral) BP: 121/78 HT: 71 in HT: 180 cm WT: 115.8 kg WT: 254.76 lb BMI: 35.74 General: alert, no acute distress HEENT: atraumatic normocephalic Cardiovascular: regular rate and rhythm, normal peripheral perfusion Respiratory: Lungs CTA, respirations non labored Extremities: no deformity, no trauma Abdomen: Benign, soft, nontender nondistended Assessment/Plan 1. GERD with esophagitis (K21.0: Gastro-esophageal reflux disease with esophagitis) 2. Irritable bowel syndrome (K58.9: Irritable bowel syndrome, unspecified) 3. Abdominal cramping (R10.9: Unspecified abdominal pain) 4. Bloating (R14.0: Abdominal distension (gaseous)) 5. Diarrhea (R19.7: Diarrhea, unspecified) 6. Gas pain (R14.1: Gas pain) 7. Vomiting (R11.10: Vomiting, unspecified) 8. History of colon polyps (Z86.0100: Personal history of colon polyps, unspecified) 9. Family history of rectal cancer (Z80.0: Family history of malignant neoplasm of digestive organs) Continue Levsin and PPI Start on Questran twice daily Schedule colonoscopy with random colon biopsies and TI evaluation Might benefit from neuromodulator in the future Follow-up No qualifying data available Problem List/Past Medical History Ongoing Abdominal cramping Bloating Diarrhea Family history of rectal cancer Gas pain GERD with esophagitis History of colon polyps Irritable bowel syndrome Smoker.. Upper abdominal pain Vomiting Historical No qualifying data Procedure/Surgical History Colonoscopy, EGD (esophagogastroduoden oscopic) electrohydraulic lithotripsy of bezoar in stomach. Medications Aleve, Oral, q12hr Align 4 mg oral capsule, 4 mg= 1 cap(s), Oral, Daily hyoscyamine 0.125 mg oral Tab Metamucil 525 mg oral capsule, 1050 mg= 2 cap(s), Oral, Daily, 1 refills ondansetron 4 mg Tab Protonix 40 mg Tab-EC, 40 mg= 1 tab(s), Oral, BID, 11 refills Allergies amoxicillin (Unknown) penicillins Social History Alcohol Current, 12/19/2018 Exercise - Does not exercise, 12/19/2018 Other Caffeine-Energy drinks, 12/19/2018 Substance Abuse - Denies Substance Abuse, 12/19/2018 Tobacco Smoker, current status unknown, Former smoker, quit more than 30 days ago Tobacco Use:. Never Smokeless Tobacco Use:. Cigarettes, Yes, 12/19/2023 Family History Alcoholism: Father and Brother. Rectal cancer: Father. Im (more content not included)... Normal [facility] Comment on above: Result Comment: Elec tronically Signed By: Jt LAST, Vianca Silva\.br\Date and Time Signed: 12/19/23 14:45 EDT Provider Letteron 12-19-2023 Provider Letter Provider Letter December 19, 2023 SALOME DONOVAN [address] [place] [phone] : 1985 To Whom It May Concern, Please excuse above patient from work. On 12/19/2023 for being seen n our office today. Date of Illness:12/19/2023 From: _ To: _12/19/2023 May Return to Work On:12/20/2023 Sincerely, [facility] [phone] Normal [facility] XR CHEST 1 Von 02-07-2022 XR CHEST [...] by: TORIN DUNN Date: 2022-02-07 09:27 Normal [facility] XR TSPINE 2 VIEWSon 05-19-19 22 XR [...] by: KARLA TEJEDA Date: 2021-05-18 19:43 Normal [facility] Vital Signs Date Time Vital Sign Value Performing Clinician Facility 01-18-2024 09:02-0500 Blood Pressure Location Heydiarthur Waters [facility] 01-18-2024 09:02-0500 Diastolic blood pressure 83 mm[Hg] Vianca Waters [facility] 01-18-2024 09:02-0500 Heart rate 67 /min Vianca Waters [facility] 01-18-2024 09:02-0500 Systolic blood pressure 121 mm[Hg] Mohamad Mouchli [facility] 01-01-2024 11:33-0400 Diastolic blood pressure 75 mm[Hg] Mohamad Mouchli [facility] 01-01-2024 11:33-0400 Heart rate 80 /min Mohamad Mouchli [facility] 01-01-2024 11:33-0400 Mean blood pressure 85 mm[Hg] Mohamad Mouchli [facility] 01-01-2024 11:33-0400 Respiratory rate 19 /min Mohamad Mouchli [facility] 01-01-2024 11:33-0400 SaO2% (BldA) [Mass fraction] 97 % Mohamad Mouchli [facility] 01-01-2024 11:33-0400 Systolic blood pressure 106 mm[Hg] Mohamad Mouchli [facility] 01-01-2024 11:25-0400 Diastolic blood pressure 63 mm[Hg] Mohamad Mouchli [facility] 01-01-2024 11:25-0400 Heart rate 75 /min Mohamad Mouchli [facility] 01-01-2024 11:25-0400 Mean blood pressure 73 mm[Hg] Mohamad Mouchli [facility] 01-01-2024 11:25-0400 Respiratory rate 18 /min Mohamad Mouchli [facility] 01-01-2024 11:25-0400 SaO2% (BldA) [Mass fraction] 94 % Mohamad Mouchli [facility] 01-01-2024 11:25-0400 Systolic blood pressure 92 mm[Hg] Mohamad Mouchli [facility] 01-01-2024 11:18-0400 Body temperature 98.06 [degF] Mohamad Mouchli [facility] 01-01-2024 11:18-0400 Diastolic blood pressure 69 mm[Hg] Mohamad Mouchli [facility] 01-01-2024 11:18-0400 Heart rate 77 /min Mohamad Mouchli [facility] 01-01-2024 11:18-0400 Mean blood pressure 82 mm[Hg] Mohamad Mouchli [facility] 01-01-2024 11:18-0400 Respiratory rate 20 /min Mohamad Mouchli [facility] 01-01-2024 11:18-0400 SaO2% (BldA) [Mass fraction] 94 % Mohamad Mouchli [facility] 01-01-2024 11:18-0400 Systolic blood pressure 108 mm[Hg] Mohamad Mouchli [facility] 01-01-2024 11:10-0400 Respiratory rate 23 /min Mohamad Mouchli [facility] 01-01-2024 11:05-0400 Respiratory rate 25 /min Mohamad Mouchli [facility] 01-01-2024 11:00-0400 Respiratory rate 17 /min Mohamad Mouchli [facility] 01-01-2024 10:30-0400 Blood Pressure Location Mohamad Mouchli [facility] 01-01-2024 10:30-0400 Body temperature 97.88 [degF] Mohamad Mouchli [facility] 12-19-2023 14:29-0400 Blood Pressure Location Heydiarthur Glaserli [facility] 12-19-2023 14:29-0400 Diastolic blood pressure 78 mm[Hg] Heydid Ariasuchli [facility] 12-19-2023 14:29-0400 Heart rate 66 /min Franolivia Glaserli [facility] 12-19-2023 14:29-0400 Systolic blood pressure 121 mm[Hg] Franolivia Glaserli [facility] Encounters Encounter Date Encounter Type Care Provider Facility Start: 01-18-2024 End: 01-18-2024 ambulatory Vianca Waters Facility:[facility] Start: 01-18-2024 End: 01-18-2024 Patient encounter procedure Heydid Shira Glaserli [facility] Start: 01-01-2024 End: 01-01-2024 ambulatory Heydid Shira [place] [place]: 01-01-2024 End: 01-01-2024 Patient encounter procedure Heydid AIgor Glaserli [facility] Start: 12-19-2023 End: 12-19-2023 [facility] Start: 12-19-2023 End: 12-19-2023 Patient encounter procedure Vianca Waters [facility] Start: 02-07-2022 End: 02-07-[address] LEWIS BHAGAT Facility:[facility] Start: 05-18-2021 End: 05-18-2021 ambulatory ELAYNE ALVARADO Facility:[facility] Procedures Date Procedure Procedure Detail Performing Clinician Start: 01-01-2024 Colonoscopy Mohamad Mouchli Colonoscopy Mohamad Mouchli Esophagogastroduoden oscopic electrohydraulic lithotripsy of bezoar in stomach Mohamad Mouchli Immunizations Immunization Date Immunization Notes Care Provider Jo Ann ashley 12-25-2014 influenza, whole Mohamad Pia chli [facility] 12-26-2013 influenza virus vaccine, unspecified formulation Mohamad Mouchli [facility] 12-24-2012 influenza virus vaccine, unspecified formulation Mohamad Mouchli [facility] 02-13-2012 influenza, whole Mohamad Pia chli [facility] 08-25-2002 hepatitis B vaccine, pediatric or pediatric/adolescent dosage Mohamad Mouchli [facility] 02-21-2002 hepatitis B vaccine, pediatric or pediatric/adolescent dosage Mohamad Mouchli [facility] 01-17-2002 hepatitis B vaccine, pediatric or pediatric/adolescent dosage Mohamad Mouchli [facility] 08-29-2000 Td(adult) unspecifie d formulation Mohamad Mouchli [facility] 04-28-1997 measles, mumps and rubella virus vaccine Mohamad Mouchli [facility] 03-10-1987 Hib, unspecified formulation Vianca Waters [facility] 09-29-1986 measles, mumps and rubella virus vaccine Vianca Waters [facility] Payers Date Payer Category Payer Unknown [id number] 2023 Unknown [id number] 1985 Unknown [id number] 2.16.84 [id number] 1985 Unknown [id number] 2.16.84 [id number] 1985 Unknown [id number] 2.16.8 [id number] 1985 Unknown [id number] [id number] [id number] 1985 Unknown [id number] 2.16.8 [id number] 1959 Unknown [id number] 1959 Unknown [id number] Social History Date Type Detail Facility Start: 12-19-2023 Tobacco smoking status Smoker (findi ng) [facility] Start: 01-18-2024 Tobacco smoking status Ex-smoker (fi nding) [facility] Tobacco smoking status Never [facility] Sex Assigned At Male [facility] Functional Status Date Assessment Result Facility 01-18-2024 Functional Status N/A [facility] 01-01-2024 Functional Status N/A [facility] 12-19-2023 Functional Status N/A [facility] Clinical Note 01-03-2024 Note Date & Type Note Facility 01-03-2024 Note Progress Note-Physic flower Patient: SALOME DONOVAN Age: 38 years Sex: Male : 1985 Associated Diagnoses: None Author: Chilo Fuller Jr, DO Preoperative Information Anesthesia Preop Info: Time patient last ate or drank 01/01/2024 00:00:00. Anesthesia history: Patient history: None. Family history+: None. Informed consent: Signed by patient. Re-evaluation prior to induction: Initial evaluation reviewed: No significant change. Review of Systems Eye: Negative except as documented in history of present illness. Ear/Nose/Mouth/Throat: Negative except as documented in history of present illness. Respiratory: Negative except as documented in history of present illness. Cardiovascular: Negative except as documented in history of present illness. Musculoskeletal: Negative except as documented in history of present illness. Neurologic: Negative except as documented in history of present illness. Health Status Allergies: Allergic Reactions (Selected) Severity Not Documented Amoxicillin- Unknown. Penicillins- No reactions were documented. Problem list: All Problems Vomiting / SNOMED CT 2570415712 / Confirmed Upper abdominal pain / SNOMED CT 589470706 / Confirmed Smoker.. / SNOMED CT [id number] / Confirmed Added secondary to documentation in Social History. Irritable bowel syndrome / SNOMED CT 55554797 / Confirmed History of colon polyps / SNOMED CT 1385690687 / Confirmed GERD with esophagitis / SNOMED CT 769166131 / Confirmed Abdominal cramping / SNOMED CT 155533822 / Confirmed Family history of rectal cancer / SNOMED CT 8060393457 / Confirmed Diarrhea / SNOMED CT 181568294 / Confirmed Gas pain / SNOMED CT 328653057 / Confirmed Bloating / SNOMED CT 622340860 / Confirmed Histories Procedure history: Colonoscopy (940796683). EGD (esophagogastroduodenoscopic) electrohydraulic lithotripsy of bezoar in stomach (1194146536). 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 Physical Examination Airway: Mallampati classification: II (soft palate, fauces, uvula visible). Respiratory: adequate air exchange. Cardiovascular: Regular rhythm. Plan [place] [employer] (ASA) physical status classification: Class II. Anesthetic Preoperative Plan: Anesthesia General. [facility] Comment on above: Result Comment: Elec tronically Signed By: Chilo Fuller Jr, DO\.br\Date and Time Signed: 01/03/24 07:28 EDT Clinical Note 01-03-2024 Note Date & Type Note Facility 01-03-2024 Note Progress Note-Physic flower Patient: SALOME DONOVAN Age: 38 years Sex: Male : 1985 Associated Diagnoses: None Author: Chilo Fuller Jr, DO Postoperative Information Postoperative disposition: Postoperative disposition: To PACU. Optimetrix number: Optimetrix number [id number]. Anesthetic utilized: General. Health Status Allergies: Allergic Reactions (Selected) Severity Not Documented Amoxicillin- Unknown. Penicillins- No reactions were documented. Physical Examination Vital Signs 01/01/2024 11:33 EDT Heart Rate Monitored 80 bpm Respiratory Rate Monitored 19 br/min Systolic Blood Pressure 106 mmHg Diastolic Blood Pressure 75 mmHg Mean Arterial Pressure, Cuff 85 mmHg SpO2 97 % 01/01/2024 11:25 EDT Heart Rate Monitored 75 bpm Respiratory Rate Monitored 18 br/min Systolic Blood Pressure 92 mmHg Diastolic Blood Pressure 63 mmHg Mean Arterial Pressure, Cuff 73 mmHg SpO2 94 % 01/01/2024 11:18 EDT Temperature Temporal Artery 36.7 DegC Heart Rate Monitored 77 bpm Respiratory Rate Monitored 20 br/min Systolic Blood Pressure 108 mmHg Diastolic Blood Pressure 69 mmHg Mean Arterial Pressure, Cuff 82 mmHg SpO2 94 % Pain Assessment: Controlled. General: Awake, Alert, Appropriate. Respiratory: Adequate air exchange. Cardiovascular: Stable, Normal peripheral perfusion. Neurological: Normal sensory function, Normal motor function. Assessment Anesthetic outcome No anesthetic complications noted. Adequate pain relief. able to void without difficulty, able to ambulate with assist, tolerating PO intake, no N/V. Review / Management Condition: Stable. Plan Transfer/Discharge: Transfer/Discharge Discharge when meets criteria ( To home ). [facility] Comment on above: Result Comment: Elec tronically Signed By: Chilo Fuller Jr, DO\.br\Date and Time Signed: 01/03/24 07:27 EDT Hospital Discharge instructions 01-01-2024 Note Date & Type Note Facility 01-01-2024 Hospital Discharg e instructions Patient Education 01/01/2024 11:23:18 Hemorrhoids, [facility] Hemorrhoids Hemorrhoids are swollen veins that may form: In the butt (rectum). These are called internal hemorrhoids. Around the opening of the butt (anus). These are called external hemorrhoids. Most hemorrhoids do not cause very bad problems. They often get better with changes to your lifestyle and what you eat. What are the causes? Having trouble pooping (constipation) or watery poop (diarrhea). Pushing too hard when you poop. . Being very overweight (obese). Sitting for too long. Riding a bike for a long time. Heavy lifting or other things that take a lot of effort. Anal sex. What are the signs or symptoms? Pain. Itching or soreness in the butt. Bleeding from the butt. Leaking poop. Swelling. One or more lumps around the opening of your butt. How is this treated? In most cases, hemorrhoids can be treated at home. You may be told to: Change what you eat. Make changes to your lifestyle. If these treatments do not help, you may need to have a procedure done. Your doctor may need to: Place rubber bands at the bottom of the hemorrhoids to make them fall off. Put medicine into the hemorrhoids to shrink them. Shine a type of light on the hemorrhoids to cause them to fall off. Do surgery to get rid of the hemorrhoids. Follow these instructions at home: Medicines Take nwjt-iqv-gfhqkrn and prescription medicines only as told by your doctor. Use creams with medicine in them or medicines that you put in your butt as told by your doctor. Eating and drinking Eat foods that have a lot of fiber in them. These include whole grains, beans, nuts, fruits, and vegetables. Ask your doctor about taking products that have fiber added to them (fibersupplements). Take in less fat. You can do this by: ?Eating low-fat dairy products. ?Eating less red meat. ?Staying away from processed foods. Drink enough fluid to keep your pee (urine) pale yellow. Managing pain and swelling Take a warm-water bath (sitz bath) for 20 minutes to ease pain. Do this 3 4 times a day. You may do this in a bathtub. You may also use a portable sitz bath that fits over the toilet. If told, put ice on the painful area. It may help to use ice between your warm baths. ?Put ice in a plastic bag. ?Place a towel between your skin and the bag. ?Leave the ice on for 20 minutes, 2 3 times a day. If your skin turns bright red, take off the ice right away to prevent skin damage. The risk of damage is higher if you cannot feel pain, heat, or cold. General instructions Exercise. Ask your doctor how much and what kind of exercise is best for you. Go to the bathroom when you need to poop. Do not wait. Try not to push too hard when you poop. Keep your butt dry and clean. Use wet toilet paper or moist towelettes after you poop. Do not sit on the toilet for a long time. Contact a doctor if: You have pain and swelling that do not get better with treatment. You have trouble pooping. You cannot poop. You have pain or swelling outside the area of the hemorrhoids. Get help right away if: You have bleeding from the butt that will not stop. This information is not intended to replace advice given to you by your health care provider. Make sure you discuss any questions you have with your health care provider. Document Revised: 11/08/2022 Document Reviewed: 11/08/2022 [employer] Patient Education 2023 [employer]. 01/01/2024 11:23:16 Diverticulosis MAGR (CUSTOM) Diverticulosis Many people have small pouches in their colon called diverticulum. The diverticulum bulge outward through weak spots in the colon. You could have one or more of these pouches in the colon. The condition of having these pouches in the colon is called diverticulosis or diverticular disease. Diverticulosis is usually diagnosed by tests to evaluate something else. For example, you may have had a colonoscopy to screen for colon cancer when the diverticulosis was found. Most people with diverticulosis do not have any discomfort or problems. If symptoms develop, they may include mild cramps, bloating, and constipation. A complication of this condition is called diverticulitis. This is when the diverticulum become inflamed and infected. How to treat diverticulosis: Increasing the amount of fiber in the diet may reduce symptoms of diverticulosis and prevent complications such as diverticulitis (infected diverticuli). Fiber keeps stool soft and lowers pressure inside the colon so that bowel contents can move through easily. You should eat 20 to 35 grams of fiber each day. The table below shows the amount of fiber in some foods that you can easily add to your diet. Adding fiber slowly may decrease the bloating and fullness sometimes felt with an immediate high fiber diet. The doctor may also recommend taking a fiber product such as Citrucel or Metamucil once a day. In the past people with diverticulosis were to avoid nuts, corn, and seeds. This has not been found to be true. If you find that certain foods create cramping or bloating, avoid that food. Foods high in fiber include: Fresh fruits, fresh vegetables, legumes (beans), whole wheat bread, bran muffins or cereal, and nuts. See the table below for examples of high fiber foods. Remember, your goal is 20-35 grams per day. Amount of fiber in different foods Food Serving Grams of fiber Fruits Apple (with skin) 1 medium apple 4.4 Banana 1 medium banana 3.1 Oranges 1 orange 3.1 Prunes 1 cup, pitted 12.4 Juices Apple, unsweetened, w/added ascorbic acid 1 cup 0.5 Grapefruit, white, canned, sweetened 1 cup 0.2 Grape, unsweetened, w/added ascorbic acid 1 cup 0.5 [place] 1 cup 0.7 Vegetables Cooked Green beans 1 cup 4.0 Carrots 1/2 cup sliced 2.3 Peas 1 cup 8.8 Potato (baked, with skin) 1 medium potato 3.8 Raw [place] (with peel) 1 cucumber 1.5 Lettuce 1 cup shredded 0.5 Tomato 1 medium tomato 1.5 Spinach 1 cup 0.7 Legumes Baked beans, canned, no salt added 1 cup 13.9 Kidney beans, canned 1 cup 13.6 Kong beans, canned 1 cup 11.6 Lentils, boiled 1 cup 15.6 Breads, pastas, flours Bran muffins 1 medium muffin 5.2 Oatmeal, cooked 1 cup 4.0 White bread 1 slice 0.6 Whole-wheat bread 1 slice 1.9 Pasta and rice, cooked Macaroni 1 cup 2.5 Rice, brown 1 cup 3.5 Rice, white 1 cup 0.6 Spaghetti (regular) 1 cup 2.5 Nuts Almonds 1/2 cup 8.7 Peanuts 1/2 cup 7.9 Chart from [facility] 2013. SEEK IMMEDIATE MEDICAL CARE IF: You develop abdominal (belly) pain. An oral temperature above _ 101 F__develops. Repeated vomiting occurs. Blood is being passed in stools (bright red or black tarry stools). You develop any bowel problems or changes which you have not had before. Extra Information: To learn how much fiber and other nutrients are in different foods, visit the [place] Department of Agriculture (USDA) National Nutrient Database at: http://www.[employer].usda.gov/fnic/fo odcomp/search/ Created using data from the USDA National Nutrient Database for Standard Reference. Available at http://www.[employer].usda.gov/fnic/fo odcomp/search/. Information adapted from: [facility] Patient Information 2009 [employer]. [facility] 2012 http://www.[employer]/content s/fkucbajmysmt-jjeezvm-xtizgx-t he-basics 01/01/2024 11:23:13 Colonoscopy, Care After Surgery Salam (CUSTOM) Colonoscopy Care After Surgery Please read the instructions outlined below and refer to this sheet in the next few weeks. These discharge instructions provide you with general information on caring for yourself after you leave the hospital. Your doctor may also give you specific instructions. While your treatment has been planned according to the most current medical practices available, unavoidable complications occasionally occur. If you have any problems or questions after discharge, please call your doctor. ACTIVITY You may resume your regular activity, but move at a slower pace for the next 24 hours. Take frequent rest periods for the next 24 hours. Walking will help get rid of the air and reduce the bloated feeling in your abdomen (belly). No driving for 24 hours (because of the anesthesia (medicine) used during the test). You may shower. Do not sign any important legal documents or operate any machinery for 24 hours (because of the anesthesia used during the test). NUTRITION Drink plenty of fluids. You may resume your normal diet as instructed by your doctor. Begin with a light meal and progress to your normal diet. Heavy or fried foods are harder to digest and may make you feel nauseated (sick to your stomach). Avoid alcoholic beverages for 24 hours or as instructed. MEDICATIONS You may resume your normal medications unless your doctor tells you otherwise. WHAT YOU CAN EXPECT TODAY Some feelings of bloating in the abdomen. Passage of more gas than usual. Spotting of blood in your stool or on the toilet paper. FOLLOW-UP Your doctor will discuss the results of your test with you. SEEK IMMEDIATE MEDICAL ATTENTION IF: There is more than a spotting of blood in your stool. There is abdominal distention (your abdomen is swollen). There is vomiting. You have a temperature over 101.5 F. There is abdominal pain or discomfort that is severe or gets worse throughout the day. [facility] Clinical Note 01-01-2024 Note Date & Type Note Facility 01-01-2024 Note Patient Education - Text Diverticulosis Many people have small pouches in their colon called diverticulum. The diverticulum bulge outward through weak spots in the colon. You could have one or more of these pouches in the colon. The condition of having these pouches in the colon is called diverticulosis or diverticular disease. Diverticulosis is usually diagnosed by tests to evaluate something else. For example, you may have had a colonoscopy to screen for colon cancer when the diverticulosis was found. Most people with diverticulosis do not have any discomfort or problems. If symptoms develop, they may include mild cramps, bloating, and constipation. A complication of this condition is called diverticulitis. This is when the diverticulum become inflamed and infected. How to treat diverticulosis: Increasing the amount of fiber in the diet may reduce symptoms of diverticulosis and prevent complications such as diverticulitis (infected diverticuli). Fiber keeps stool soft and lowers pressure inside the colon so that bowel contents can move through easily. You should eat 20 to 35 grams of fiber each day. The table below shows the amount of fiber in some foods that you can easily add to your diet. Adding fiber slowly may decrease the bloating and fullness sometimes felt with an immediate high fiber diet. The doctor may also recommend taking a fiber product such as Citrucel or Metamucil once a day. In the past people with diverticulosis were to avoid nuts, corn, and seeds. This has not been found to be true. If you find that certain foods create cramping or bloating, avoid that food. Foods high in fiber include: Fresh fruits, fresh vegetables, legumes (beans), whole wheat bread, bran muffins or cereal, and nuts. See the table below for examples of high fiber foods. Remember, your goal is 20-35 grams per day. Amount of fiber in different foods Food Serving Grams of fiber Fruits Apple (with skin) 1 medium apple 4.4 Banana 1 medium banana 3.1 Oranges 1 orange 3.1 Prunes 1 cup, pitted 12.4 Juices Apple, unsweetened, w/added ascorbic acid 1 cup 0.5 Grapefruit, white, canned, sweetened 1 cup 0.2 Grape, unsweetened, w/added ascorbic acid 1 cup 0.5 [place] 1 cup 0.7 Vegetables Cooked Green beans 1 cup 4.0 Carrots 1/2 cup sliced 2.3 Peas 1 cup 8.8 Potato (baked, with skin) 1 medium potato 3.8 Raw [place] (with peel) 1 cucumber 1.5 Lettuce 1 cup shredded 0.5 Tomato 1 medium tomato 1.5 Spinach 1 cup 0.7 Legumes Baked beans, canned, no salt added 1 cup 13.9 Kidney beans, canned 1 cup 13.6 Kong beans, canned 1 cup 11.6 Lentils, boiled 1 cup 15.6 Breads, pastas, flours Bran muffins 1 medium muffin 5.2 Oatmeal, cooked 1 cup 4.0 White bread 1 slice 0.6 Whole-wheat bread 1 slice 1.9 Pasta and rice, cooked Macaroni 1 cup 2.5 Rice, brown 1 cup 3.5 Rice, white 1 cup 0.6 Spaghetti (regular) 1 cup 2.5 Nuts Almonds 1/2 cup 8.7 Peanuts 1/2 cup 7.9 Chart from [facility] 2013. SEEK IMMEDIATE MEDICAL CARE IF: You develop abdominal (belly) pain. An oral temperature above _ 101? F__develops. Repeated vomiting occurs. Blood is being passed in stools (bright red or black tarry stools). You develop any bowel problems or changes which you have not had before. Extra Information: To learn how much fiber and other nutrients are in different foods, visit the [place] Department of Agriculture (USDA) National Nutrient Database at: http://www.nal.usda.gov/fnic/foodcomp/se arch/ Created using data from the USDA National Nutrient Database for Standard Reference. Available at http://www.nal.usda.gov/fnic/foodcomp/se arch/. Information adapted from: [facility] Patient Information ?2009 [employer]. [employer] 2012 http://www.[employer]/contents/diverti lsshk-mvsxbog-npvxbi-the-basics Colonoscopy Care After Surgery Please read the instructions outlined below and refer to this sheet in the next few weeks. These discharge instructions provide you with general information on caring for yourself after you leave the hospital. Your doctor may also give you specific instructions. While your treatment has been planned according to the most current medical practices available, unavoidable complications occasionally occur. If you have any problems or questions after discharge, please call your doctor. ACTIVITY You may resume your regular activity, but move at a slower pace for the next 24 hours. Take frequent rest periods for the next 24 hours. Walking will help get rid of the air and reduce the bloated feeling in your abdomen (belly). No driving for 24 hours (because of the anesthesia (medicine) used during the test). You may shower. Do not sign any important legal documents or operate any machinery for 24 hours (because of the anesthesia used during the test). NUTRITION Drink plenty of fluids. You may resume your normal diet as instructed by your doctor. Begin wit (more content not included)... [facility] Evaluation + Plan note Note Date & Type Note Facility Evaluation + Plan note Future Appointments Appointment Date:01/01/2024 11:00:00 AM Scheduled Provider: Location:[facility] Appointment Type:Surgery FT Appointment Date:01/18/2024 08:45:00 AM Scheduled Provider:Vianca Waters MD [place] [place] [facility] Appointment Type:[facility] Follow Up [facility] Evaluation + Plan note Note Date & Type Note Facility Evaluation + Plan note Future Appointments Appointment Date:01/18/2024 08:45:00 AM Scheduled Provider:Vianca Waters MD [place] [place] [facility] Appointment Type:[facility] Follow Up [facility] Hospital course Narrative Note Date & Type Note Facility Hospital course Narrative No data available for this section [facility] Hospital Discharge instructions Note Date & Type Note Facility Hospital Discharge instructions No data available for this section [facility] Progress note Note Date & Type Note Facility Progress note No data available for this section [facility] Summary Purpose Family History No Family History Records Found No data available for this section No data available for this section No Family History Records FoundNo Family History Records Found No data available for this section No Family History Records Found Advance Directives No Advanced Directives Records FoundNo Advanced Directives Records FoundNo Advanced Directives Records FoundNo Advanced Directives Records Found Additional Source Comments (unrecognized sect ion and content) No Status Records FoundNo Status Records FoundNo Status Records FoundNo Status Records Found INFORMATION SOURCE (unrecogn ized section and content) DATE CREATED AUTHOR 02/18/2022 [facility] DATE CREATED AUTHOR AUTHOR'S ORGANIZ ATION 01/05/2024 [facility] DATE CREATED AUTHOR AUTHOR'S ORGANIZ ATION 01/06/2024 [facility] DATE CREATED AUTHOR AUTHOR'S ORGANIZ ATION 01/21/2024 [facility] Patient Care team informatio n (unrecognized section and content) Personnel Name: YOEL CASTREJON CNP Address: Address: [address] [place] [address] Personnel Name: YOEL CASTREJON CNP Address: Address: [address] [place] [address] Personnel Name: YOEL CASTREJON CNP Address: Address: [address] [place] [address] FOR RECORDS PERTAINING TO PATIENTS WHO ARE [...] BE BASED ON THE PRIMARY CLINICAL RECORDS. [facility] [employer] [facility]. provides no warranty or guarantee of the accuracy or completeness of information in this document.
[2024-04-11] MEDS: IBUPROFEN 600 MG TABLET PO (12:08)
--- NOTE | 2024-04-11 12:29 | ED.GENADUL1 ---
HPI HPI - General Adult General Chief complaint: Extremity Injury, Upper Stated complaint: UPPER EXTREMITY PAIN Time Seen by Provider: 04/11/24 12:00 Mode of arrival: walk-in Limitations: no limitations History of Present Illness HPI narrative: Patient is a 39-year-old male who presented presenting to the ER today with chief complaint of bilateral wrist pain, right greater than left. This started Sunday when patient woke up. Patient has been doing a new job for the past several weeks. 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 Patient is right-hand dominant. Patient is having pain to both of his wrist. Patient does not want to file a Worker's Comp. injury. Patient is displaying signs and symptoms of overuse injury. Patient states that he is doing a lot of activity repeatedly with his hands and wrists at work. No elbow pain, shoulder pain bilateral, no other acute complaints. All systems are negative except as noted/marked. All systems reviewed and otherwise negative. Nurses note and vital signs reviewed and patient is not hypoxic. General: The patient appears well and in no apparent distress. Patient is resting comfortably on cart. Patient is not toxic, lethargic, or listless Skin: Warm, dry, no pallor noted. There is no rash noted. No petechiae, purpura. Head: Normocephalic, atraumatic Eye: Normal conjunctiva, no drainage, EOMI. PERRL Ears, Nose, Mouth, and Throat: oral mucosa is moist. Nares patent. Mouth without vesicles. Cardiovascular: Regular Rate and Rhythm, no murmur, gallop, rub Respiratory: Patient is in no distress, no accessory muscle use, lungs are clear to auscultation, no wheezing, rales or rhonchi Musculoskeletal: Patient has full range of motion of all of the extremities. Patient does have positive Alex test on the right along with mild pain to the right wrist with flexion extension of the right wrist. Patient has no pain to anatomical snuffbox, no pain axial loading to the right thumb. Full range of motion of right shoulder and elbow with no difficulty. Patient has no pain with any range of motion of his right elbow, no pain in the ulnar groove. Patient has no signs or symptoms that suggest carpal tunnel syndrome. Negative Tinel' testing. Patient left wrist has mild pain with flexion extension of left wrist, normal Alex test. Patient has no tenderness to palpation to left elbow with full range of motion of left shoulder and elbow, no swelling to bilateral forearms. No signs of compartment syndrome. Patient is neuro vas intact in both hands and fingers. 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 No motor, sensory, or focal neurological deficits Neurological: A&O x4, normal speech Psychiatric: Cooperative Related Data Home Medications ?Medication ?Instructions ?Recorded ?Confirmed No Known Home Medications 05/25/23 05/25/23 Allergies Allergy/AdvReac Type Severity Reaction Status Date / Time Penicillins Allergy Severe Hives Verified 05/25/23 11:36 Opioid HPI Opioid Management Most Recent Opioid Data: Last Pain Scale 3 04/11/24 12:08 04/11/24 Last MAY Pain Assessment 04/11/24 12:08 PFSH PFSH Social History Little interest or pleasure in doing things: not at all Feeling down, depressed, or hopeless: not at all Exam Constitutional Vital Signs, click to edit/add: Last Vital Signs Temp 97.8 F 04/11/24 11:43 Pulse 66 04/11/24 11:43 Resp 18 04/11/24 11:43 BP 135/85 04/11/24 11:43 Pulse Ox 96 04/11/24 11:43 O2 Del Method Room Air 04/11/24 11:43 Course Vital Signs Vital signs: Vital Signs Temperature 97.8 F 04/11/24 11:43 Pulse Rate 66 04/11/24 11:43 Respiratory Rate 18 04/11/24 11:43 Blood Pressure 135/85 04/11/24 11:43 Pulse Oximetry 96 04/11/24 11:43 Oxygen Delivery Method Room Air 04/11/24 11:43 Temperature 97.8 F 04/11/24 11:43 Pulse Rate 66 04/11/24 11:43 Respiratory Rate 18 04/11/24 11:43 Blood Pressure 135/85 04/11/24 11:43 Pulse Oximetry 96 04/11/24 11:43 Oxygen Delivery Method Room Air 04/11/24 11:43 Medical Decision Making MDM Narrative Medical decision making narrative: Patient was educated that there is no acute indication for x-ray at this time. Patient most likely has soft tissue injury. Patient was given ice and Motrin. Patient is right-hand dominant. Patient may have de Quervain syndrome to the right wrist, but patient has more bilateral wrist pain/pain. Education on ice, wrist splints were discussed at bedside and on discharge paperwork. Education on ice, RICE therapy, splint wear, following up with PCP and orthopedic surgeon were discussed. Patient has evidence of overuse injury. It appears the patient may have been looking for a work note for the weekend, patient was educated that he can go back to work, restrictions are given, but there is no acute indication to have off of work. Patient's body language showed that he sighed and put his head down and slumped downward slightly with body language showing that he was not very excited about that decision after I told him this, but patient understood. Discharge Plan Discharge Stand Alone Forms: Work/School Release Chief Complaint: Extremity Injury, Upper Clinical Impression: Bilateral wrist pain, De Quervain's syndrome (tenosynovitis), Overuse injury Patient Disposition: Home, Self-Care Time of Disposition Decision: 12:26 Condition: Fair Prescriptions / Home Meds: No Action No Known Home Medications Print Language: Persian Instructions: Wrist Injury (ED), De Quervain Disease (ED), Arthralgia (ED) Additional Instructions: Use ice 20 minutes on, 20 minutes off. Do not use heat. Follow-up with orthopedic surgery if no improvement in the next 1 to 2 weeks. Wear your wrist splints for the next 5 to 7 days as needed. Take them off for ice and shower. Alternate Tylenol and either Motrin, Advil, or ibuprofen every 4 hours to help with pain. Maximum dose of Tylenol is 3000 mg a day. Maximum dose of either Motrin, Advil, or ibuprofen is 2400 mg a day. Referrals: YOEL CASTREJON [Primary Care Provider] - 1 week Discharge Date/Time: 04/11/24 12:43
== END 2024-04-11 12:43 | disposition home or self-care (01) ==
PROVIDERS: Emergency Provider Emergency Medicine; PCP Nurse Practitioner Family
DX: M25.532 Pain in left wrist (principal); M25.531 Pain in right wrist; M65.4 Radial styloid tenosynovitis [de Quervain]
CPT/HCPCS: 99283

== ENCOUNTER 2024-07-30 17:36 | Emergency (ER) | payer OTHER, SELFPAY ==
[2024-07-30 17:46] VITALS: BP 136/89; PULSE 77; TEMP 36.4; O2SAT 96; BMI 34.2
--- OUTSIDE RECORDS SUMMARY | 2024-07-30 17:46 | XMS_ITS | CCD ---
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 Name Role Phone DR LEWIS BHAGAT Admitting Unavailable REQUEST, DR JUNIOR LISTED Primary Care Unavailearline DUNN, DR TORIN Jackson Consulting Unavailable OLAYINKA, DR SAUCEDO Attending Unavailable OLAYINKA, DR SAUCEDO Consulting Unavailable ELAYNE ALVARADO Attending Unavailable CHAITANYA BORDEN Consulting Unavailable ELAYNE ALVARADO Admitting Unavailable REQUEST, DR JUNIOR LISTED Primary Care UnavailKARLA Ash Consulting Unavailable YOEL CASTREJON Primary Care Physician Vianca Waters Referring Unavailable Vianca Waters Admitting Unavailable Vianca Waters Attending Unavailable Vianca Waters Attending Unavailable Vianca Waters Attending Unavailable Allergies Allergy Classification Reported Allergen(s) Allergy Type Date of Onset Reaction(s) Facility (2 sources) Amoxicillin; Translations: [amoxicillin] Drug Allergy [facility] Repository (5 sources) Penicillins; Translations: [penicillins] Drug allergy (disorder) [facility] Repository (3 sources) Amoxicillin; Translations: [amoxicillin] Drug Allergy Unknown (qualifier value) [facility] Medications Current Medications Medication Drug [...] BID, # 60 EA, Refills(s) 2, Pharmacy: [facility], 180, cm, 12/19/23 14:34:00 EDT, Height/Length [...] Daily, # 30 cap(s), Refills(s) 3, Pharmacy: [facility], 180, cm, 01/18/24 9:06:00 EST, Height/Length [...] meals, # 120 tab(s), Refills(s) 11, Pharmacy: [facility], 180, cm, 12/30/19 8:59:00 EDT, Height/Length [...] water, # 160 cap(s), Refills(s) 1, Pharmacy: [facility], 180, cm, 12/30/19 8:59:00 EDT, Height/Length [...] during bowel movements Refills: 3 Pickup at [facility] Unchanged bifidobacterium infantis (Align 4 [...] Pharmacy Information [facility]: [address], [place] [phone] Allergies amoxicillin (Unknown) penicillins Problems Ongoing - [...] choosing us for your care. Aleja Mason [facility] Gastroenterology Office/Clin ic Noteon 01-18-2024 Gastroenterology Office/Clinic [...] Daily, # 30 cap(s), Refills(s) 3, Pharmacy: [facility], 180, cm, 01/18/24 9:06:00 EST, Height/Length Dosing, 118.9, kg, 01/18/24 9:06:00 EST, Weight Dosing 2. Irritable bowel syndrome (K58.9: Irritable bowel syndrome, unspecified) Ordered: linaclotide, 72 mcg = 1 cap(s), Oral, Daily, # 30 cap(s), Refills(s) 3, Pharmacy: [facility], 180, cm, 01/18/24 9:06:00 EST, Height/Length [...] # 30 cap(s), Refills(s) 3, Pharmacy: [facility], 180, cm, 01/18/24 9:06:00 EST, Height/Length Dosing, 118.9, kg, 01/18/24 9:06:00 EST, Weight Dosing 6. History of colon polyps (Z86.0100: Personal history of colon polyps, unspecified) Ordered: linaclotide, 72 mcg = 1 cap(s), Oral, Daily, # 30 cap(s), Refills(s) 3, Pharmacy: [facility], 180, cm, 01/18/24 9:06:00 EST, Height/Length [...] (Z80.0: Fam (more content not included)... [facility] Comment on above: Result Comment: Elec tronically Signed By: Jt LAST, Vianca Silva\.br\Date and Time Signed: 01/18/24 09:25 EST Reminderson 01-16-2024 Reminders Reminders From: Destiny Stallings To: [facility] - Reminders/Recalls; Sent: 01/16/2024 15:40:53 EST Show up: 12/02/2028 15:39:00 EDT Subject: Ambulatory Reminder- colonoscopy 5 year recall Due Date/Time: 01/01/2029 15:38:00 EDT Reminder/Recall Colonoscopy Dr Waters- 01/02/24 5 year recall due too family history. [facility] Reminders Reminders From: Destiny Stallings To: [facility] - Reminders/Recalls; Sent: 01/15/2024 13:05:33 EST Show up: 01/14/2034 13:05:00 EST Subject: Ambulatory Reminder- 10 year colonoscopy Due Date/Time: 01/14/2034 13:05:00 EST Reminder/Recall Colonoscopy Dr Waters-01/01/24 10 years Normal [facility] Comment on above: Other Comment: Famil y history of rectal cancer. Changing to 5 year recall. Surgical Pathology Reporton 01-03-2024 Surgical Pathology Report [facility] [address] [place] [address]- Surgical Pathology Report Collected Date/Time: 01/01/2024 11:09 [...] examination performed unless gross only specified. [facility] Comment on above: Performed By: #### [id number] #### [facility] [address] [place] [address] Main OR Intraoperative Recor don 01-02-2024 Main OR Intraoperative Record Main OR Intraoperative Record IntraOp Document Type FT Summary Primary Physician: Vianca Waters MD Finalized Date/Time: 01/02/24 14:49:43 Pt. Name: SALOME DONOVAN/Sex: 1985 Male Med Rec #: [id number] Physician: Vianca Waters MD Financial #: [id number] Pt. 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 (more content not included)... [facility] Discharge Instructionson Discharge Instructions Discharge Instructions SAOLME DONOVAN :1985 Visit Date:01/01/2024 Inpatient Discharge Instructions [...] AM EST With: Vianca Waters MD Where: [facility] [address] [place], [place] [id number] Medications What How Much When Instructions Next [...] these instructions at home: Medicines ? Take pngg-ghf-rhgygvg and prescription medicines only as told by [...] If told (more content not included)... [facility] Comment on above: Result Comment: Elec [...] Impression and Plan Diagnosis: Diarrhea - colonoscopy [facility] Main OR PACU II Recordon Main OR PACU II Record Main OR PACU II Record PACU Phase II Document Type FT Summary Primary Physician: Vianca Waters MD Finalized Date/Time: 01/01/24 11:50:23 Pt. Name: SALOME DONOVAN Ellyn/Sex: 1985 Male Med Rec #: [id number] Physician: Vianca Waters MD Financial #: [id number] Pt. Type: O Room/Bed: / Admit/Disch: 01/01/24 [...] 11:49 Sara Simmons I 01/01/24 11:50 Normal [facility] Main OR Preoperative Recordo n 01-01-2024 Main OR Preoperative Record Main OR Preoperative Record Holding Area Document Type FT Summary Primary Physician: Vianca Waters MD Finalized Date/Time: 01/01/24 10:24:49 Pt. Name: SALOME DONOVAN Ellyn/Sex: 1985 Male Med Rec #: [id number] Physician: Vianca Waters MD Financial #: [id number] Pt. Type: O Room/Bed: / Admit/Disch: 01/01/24 [...] By: Staci Sandy RN 01/01/24 10:24 [facility] Operative Reporton Operative Report Operative Report Patient: SALOME DONOVAN Age: 38 years Sex: Male : 1985 Associated Diagnoses: None Author: Vianca Waters MD Pre-Procedure Procedure Date 01/01/2024 11:15:00 . Procedure Type: Colonoscopy with biopsy. Procedure provider Performed by Vianca Waters MD. Current history and physical Documented on chart. Colonoscopy (762227540). EGD (esophagogastroduoden oscopic) electrohydraulic lithotripsy of bezoar in stomach (0271915173).. Past Medical History Active Upper abdominal pain (662211034). Family History Alcoholism Father Brother Rectal cancer Father . Procedure History Colonoscopy (872386768). EGD (esophagogastroduoden oscopic) electrohydraulic lithotripsy of bezoar in stomach (2441416037).. Colorectal neoplasm risk assessment Average risk. Informed [...] water, # 160 cap(s), Refills(s) 1, Pharmacy: [facility], 180, cm, 12/30/19 8:59:00 EDT, Height/Length [...] BID, # 60 EA, Refills(s) 2, Pharmacy: [facility] 1155, 180, cm, 12/19/23 14:34:00 EDT, Height/Length [...] hours. Education and Follow-up: Counseled: Patient, Family. [facility] Comment on above: Result Comment: Elec tronically Signed By: Jt LAST, Vianca Olguin.br\Date and Time Signed: 01/01/24 11:16 EDT Other Comment: Glenis ellsworth Attachment - attachment storage system not supported [id number] Can be viewed in source systemMissing Attachment - attachment storage system not supported [id number] Can be viewed in source systemMissing Attachment - attachment storage system not supported [id number] Can be viewed in source systemMissing Attachment - attachment storage system not supported [id number] Can be viewed in source systemMissing Attachment - attachment storage system not supported [id number] Can be viewed in source systemMissing Attachment - attachment storage system not supported [id number] Can be viewed in source system Ambulatory [...] AM EST With: Vianca Waters MD Where: [facility] [address] [place] [phone]- Medications What How Much When Instructions New cholestyramine (Questran 4 g/ 9 g oral powder) 1 Packets By Mouth 2 times a day Refills: 2 Pickup at [facility] Unchanged bifidobacterium infantis (Align 4 mg oral [...] Pharmacy Information [facility]: [address], [place] [phone] Allergies amoxicillin (Unknown) penicillins Problems Ongoing - [...] for choosing us for your care. [facility] Gastroenterology Office/Clin ic Noteon 12-19-2023 Gastroenterology Office/Clinic [...] decreasing Protonix to QD CT 12/07/23 @ [facility]: IMPRESSION: 1. No acute abdominal or [...] IMPRESSION: NORMAL GASTRIC EMPTYING. Labs 05/25/23 @ [place]: BUN 19.0 (H) ALT 89 (H) CBC [...] Father. Im (more content not included)... [facility] Comment on above: Result Comment: Elec tronically Signed By: Jt LAST, Vianca Silva\.br\Date and Time Signed: 12/19/23 14:45 EDT Provider Letteron 12-19-2023 Provider Letter Provider Letter December 19, 2023 SALOME DONOVAN [address] [place] [id number] : 1985 To Whom It May Concern, Please excuse above patient from work. On 12/19/2023 for being seen n our office today. Date of Illness:12/19/2023 From: _ To: _12/19/2023 May Return to Work On:12/20/2023 Sincerely, [facility] [phone] [facility] XR CHEST 1 Von 02-07-2022 XR CHEST [...] by: TORIN DUNN Date: 2022-02-07 09:27 Normal [facility] XR TSPINE 2 VIEWSon 05-19-19 22 XR [...] by: KARLA TEJEDA Date: 2021-05-18 19:43 Normal [facility] Vital Signs Date Time Vital Sign Value Performing Clinician Facility 01-18-2024 09:02-0500 Blood Pressure Location Heydiarthur Waters [facility] 01-18-2024 09:02-0500 Diastolic blood pressure 83 mm[Hg] Vianca Waters [facility] 01-18-2024 09:02-0500 Heart rate 67 /min Vianca Waters [facility] 01-18-2024 09:02-0500 Systolic blood pressure 121 mm[Hg] Mohamad Mouchli [facility] 01-01-2024 11:33-0400 Diastolic blood pressure 75 mm[Hg] Mohamad Mouchli [facility] 01-01-2024 11:33-0400 Heart rate 80 /min Mohamad Mouchli [facility] 01-01-2024 11:33-0400 Mean blood pressure 85 mm[Hg] Mohamad Mouchli [facility] 01-01-2024 11:33-0400 Respiratory rate 19 /min Mohamad Mouchli [facility] 01-01-2024 11:33-0400 SaO2% (BldA) [Mass fraction] 97 % Mohamad Mouchli [facility] 01-01-2024 11:33-0400 Systolic blood pressure 106 mm[Hg] Mohamad Mouchli [facility] 01-01-2024 11:25-0400 Diastolic blood pressure 63 mm[Hg] Mohamad Mouchli [facility] 01-01-2024 11:25-0400 Heart rate 75 /min Mohamad Mouchli [facility] 01-01-2024 11:25-0400 Mean blood pressure 73 mm[Hg] Mohamad Mouchli [facility] 01-01-2024 11:25-0400 Respiratory rate 18 /min Mohamad Mouchli [facility] 01-01-2024 11:25-0400 SaO2% (BldA) [Mass fraction] 94 % Mohamad Mouchli [facility] 01-01-2024 11:25-0400 Systolic blood pressure 92 mm[Hg] Mohamad Mouchli [facility] 01-01-2024 11:18-0400 Body temperature 98.06 [degF] Mohamad Mouchli [facility] 01-01-2024 11:18-0400 Diastolic blood pressure 69 mm[Hg] Mohamad Mouchli [facility] 01-01-2024 11:18-0400 Heart rate 77 /min Mohamad Mouchli [facility] 01-01-2024 11:18-0400 Mean blood pressure 82 mm[Hg] Mohamad Mouchli [facility] 01-01-2024 11:18-0400 Respiratory rate 20 /min Mohamad Mouchli [facility] 01-01-2024 11:18-0400 SaO2% (BldA) [Mass fraction] 94 % Mohamad Mouchli [facility] 01-01-2024 11:18-0400 Systolic blood pressure 108 mm[Hg] Mohamad Mouchli [facility] 01-01-2024 11:10-0400 Respiratory rate 23 /min Mohamad Mouchli [facility] 01-01-2024 11:05-0400 Respiratory rate 25 /min Mohamad Mouchli [facility] 01-01-2024 11:00-0400 Respiratory rate 17 /min Mohamad Mouchli [facility] 01-01-2024 10:30-0400 Blood Pressure Location Mohamad Mouchli [facility] 01-01-2024 10:30-0400 Body temperature 97.88 [degF] Mohamad Mouchli [facility] 12-19-2023 14:29-0400 Blood Pressure Location Heydiarthur Glaserli [facility] 12-19-2023 14:29-0400 Diastolic blood pressure 78 mm[Hg] Heydid Ariasuchli [facility] 12-19-2023 14:29-0400 Heart rate 66 /min Franolivia Glaserli [facility] 12-19-2023 14:29-0400 Systolic blood pressure 121 mm[Hg] Franolivia Glaserli [facility] Encounters Encounter Date Encounter Type Care Provider Facility Start: 01-18-2024 End: 01-18-2024 ambulatory Vianca Waters Facility:[facility] Start: 01-18-2024 End: 01-18-2024 Patient encounter procedure Heydid Shira Glaserli [facility] Start: 01-01-2024 End: 01-01-2024 ambulatory Heydid Shira Waters Facility:[facility] Start: 01-01-2024 End: 01-01-2024 Patient encounter procedure Heydid AIgor Glaserli [facility] Start: 12-19-2023 End: 12-19-2023 ambulatory Heydid AIgor [facility] Start: 12-19-2023 End: 12-19-2023 Patient encounter procedure Vianca Waters [facility] Start: 02-07-2022 End: 02-07-[address] LEWIS BHAGAT Facility:[facility] Start: 05-18-2021 End: 05-18-2021 ambulatory ELAYNE ALVARADO Facility:[facility] Procedures Date Procedure Procedure Detail Performing Clinician Start: 01-01-2024 Colonoscopy Mohamad Mouchli Colonoscopy Mohamad Mouchli Esophagogastroduoden oscopic electrohydraulic lithotripsy of bezoar in stomach Mohamad Mouchli Immunizations Immunization Date Immunization Notes Care Provider Jo Ann ashley 12-25-2014 influenza, whole Mohamad Pia chli [facility] 12-26-2013 influenza virus vaccine, unspecified formulation Mohamad Mouchli [facility] 12-24-2012 influenza virus vaccine, unspecified formulation Mohamad Mouchli [facility] 02-13-2012 influenza, whole Mohamad Pia chli [facility] 08-25-2002 hepatitis B vaccine, pediatric or pediatric/adolescent dosage Mohamad Mouchli [facility] 02-21-2002 hepatitis B vaccine, pediatric or pediatric/adolescent dosage Mohamad Mouchli [facility] 01-17-2002 hepatitis B vaccine, pediatric or pediatric/adolescent dosage Mohamad Mouchli [facility] 08-29-2000 Td(adult) unspecifie d formulation Mohamad Mouchli [facility] 04-28-1997 measles, mumps and rubella virus vaccine Mohamad Mouchli [facility] 03-10-1987 Hib, unspecified formulation Vianca Waters [facility] 09-29-1986 measles, mumps and rubella virus vaccine Vianca Waters [facility] Payers Date Payer Category Payer Unknown [id number] 2023 Unknown [id number] 1985 Unknown [id number] 2.16.84 [id number] 1985 Unknown [id number] 2.16.84 [id number] 1985 Unknown [id number] 2.16.8 [id number] 1985 Unknown [id number] 2.16.8 [id number] 1985 Unknown [id number] 2.16.8 [id number] 1959 Unknown [id number] 1959 Unknown [id number] Social History Date Type Detail Facility Start: 12-19-2023 Tobacco smoking status Smoker (findi ng) [facility] Start: 01-18-2024 Tobacco smoking status Ex-smoker (fi nding) [facility] Tobacco smoking status Never [facility] Sex Assigned At Male [facility] Functional Status Date Assessment Result Facility 01-18-2024 Functional Status N/A [facility] 01-01-2024 Functional Status N/A [facility] 12-19-2023 Functional Status N/A [facility] Clinical Note 01-03-2024 Note Date [...] list: All Problems Vomiting / SNOMED CT 9730884723 / Confirmed Upper abdominal pain / SNOMED CT 428999259 / Confirmed Smoker.. / SNOMED CT [id number] / Confirmed Added secondary to documentation in Social History. Irritable bowel syndrome / SNOMED CT 37584065 / Confirmed History of colon polyps / SNOMED CT 2163093320 / Confirmed GERD with esophagitis / SNOMED CT 630102847 / Confirmed Abdominal cramping / SNOMED CT 240956072 / Confirmed Family history of rectal cancer / SNOMED CT 8752302052 / Confirmed Diarrhea / SNOMED CT 650106011 / Confirmed Gas pain / SNOMED CT 254491295 / Confirmed Bloating / SNOMED CT 004119891 / Confirmed Histories Procedure history: Colonoscopy (814608275). EGD (esophagogastroduodenoscopic) electrohydraulic lithotripsy of bezoar in stomach (0893283085). Social History Social & Psychosocial Habits Alcohol [...] adequate air exchange. Cardiovascular: Regular rhythm. Plan [place] [employer] Anesthesiologists (ASA) physical status classification: Class II. Anesthetic Preoperative Plan: Anesthesia General. [facility] Comment on above: Result Comment: Elec [...] when meets criteria ( To home ). [facility] Comment on above: Result Comment: Elec tronically Signed By: Chilo Fuller Jr, DO\.br\Date and Time Signed: 01/03/24 07:27 EDT Hospital Discharge instructions 01-01-2024 Note Date & Type Note Facility 01-01-2024 Hospital Discharg e instructions Patient Education 01/01/2024 11:23:18 Hemorrhoids, Aagz-jf-Ijtm Hemorrhoids Hemorrhoids are swollen veins that may [...] Follow these instructions at home: Medicines Take ujts-hog-tfvhgbu and prescription medicines only as told by [...] provider. Document Revised: 11/08/2022 Document Reviewed: 11/08/2022 [employer] Patient Education 2023 [employer]. 01/01/2024 11:23:16 Diverticulosis MAGR (CUSTOM) Diverticulosis Many [...] unsweetened, w/added ascorbic acid 1 cup 0.5 Craig 1 cup 0.7 Vegetables Cooked Green beans 1 cup 4.0 Carrots 1/2 cup sliced 2.3 Peas 1 cup 8.8 Potato (baked, with skin) 1 medium potato 3.8 Raw [place] (with peel) 1 cucumber 1.5 Lettuce 1 [...] 8.7 Peanuts 1/2 cup 7.9 Chart from [facility] 2013. SEEK IMMEDIATE MEDICAL CARE IF: You [...] of Agriculture (USDA) National Nutrient Database at: http://www.Nextdoor.usda.gov/fnic/fo odcomp/search/ Created using data from the USDA National Nutrient Database for Standard Reference. Available at http://www.Nextdoor.usda.gov/fnic/fo odcomp/search/. Information adapted from: [facility] Patient Information 2009 [employer]. [facility] 2012 http://www.iWeb Technologies/content s/fuauikncvvhi-lmndokh-amtsaa-t he-basics 01/01/2024 11:23:13 Colonoscopy, Care After Surgery [...] severe or gets worse throughout the day. [facility] Clinical Note 01-01-2024 Note Date & Type [...] unsweetened, w/added ascorbic acid 1 cup 0.5 Craig 1 cup 0.7 Vegetables Cooked Green beans 1 cup 4.0 Carrots 1/2 cup sliced 2.3 Peas 1 cup 8.8 Potato (baked, with skin) 1 medium potato 3.8 Raw [place] (with peel) 1 cucumber 1.5 Lettuce 1 [...] 8.7 Peanuts 1/2 cup 7.9 Chart from [facility] 2013. SEEK IMMEDIATE MEDICAL CARE IF: You [...] Available at http://www.nal.usda.gov/fnic/foodcomp/se arch/. Information adapted from: [facility]? Patient Information ?2009 [employer]. [employer] 2012 http://www.[employer]/contents/diverti zlhqd-cvczwyc-qddsgq-the-basics Colonoscopy Care After Surgery Please read the [...] doctor. Begin wit (more content not included)... [facility] Evaluation + Plan note Note Date & Type Note Facility Evaluation + Plan note Future Appointments Appointment Date:01/01/2024 11:00:00 AM Scheduled Provider: Location:[facility] Appointment Type:Surgery FT Appointment Date:01/18/2024 08:45:00 AM Scheduled Provider:Vianca Waters MD Location:[facility] Appointment Type:[facility] Follow Up [facility] Evaluation + Plan note Note Date & Type Note Facility Evaluation + Plan note Future Appointments Appointment Date:01/18/2024 08:45:00 AM Scheduled Provider:Vianca Waters MD Location:[facility] Appointment Type:[facility] Follow Up [facility] Hospital course Narrative Note Date & Type Note Facility Hospital course Narrative No data available for this section [facility] Hospital Discharge instructions Note Date & Type Note Facility Hospital Discharge instructions No data available for this section [facility] Progress note Note Date & Type Note Facility Progress note No data available for this section [facility] Summary Purpose Family History No [...] DATE CREATED AUTHOR AUTHOR'S ORGANIZ ATION 01/05/[address] [facility] DATE CREATED AUTHOR AUTHOR'S ORGANIZ ATION 01/06/[address] [facility] DATE CREATED AUTHOR AUTHOR'S ORGANIZ ATION 06/14/[address] [facility] Patient Care team informatio n (unrecognized section and content) Personnel Name: YOEL CASTREJON CNP Address: Address: [address] [place] [address] Personnel Name: YOEL CASTREJON CNP Address: Address: [address] [place] [address] Personnel Name: YOEL CASTREJON CNP Address: Address: [address] [place] [address] FOR RECORDS PERTAINING TO PATIENTS WHO ARE [...] BE BASED ON THE PRIMARY CLINICAL RECORDS. [facility] [employer] [facility]. provides no warranty or guarantee of the accuracy or completeness of information in this document.
--- NOTE | 2024-07-30 17:51 | ED_ITS ---
HPI HPI - General Adult General Chief complaint: Urogenital-Male Stated complaint: TESTICAL PAIN Time Seen by Provider: 07/30/24 17:47 Source: patient and family Mode of arrival: walk-in Limitations: no limitations History of Present Illness HPI narrative: This 39-year-old male presents with a 2-week history of left testicular pain. It is more noticeable when he stands up and the testicle is in the more dependent position. He denies any urethral drainage or dysuria. No abdominal or back pain is reported. He denies chills, fever, nausea or vomiting. He is not diabetic. Related Data Home Medications ?Medication ?Instructions ?Recorded ?Confirmed diclofenac sodium 75 mg 75 mg PO Q12H PRN pain 07/3007/30/24 tablet,delayed release pantoprazole 40 mg tablet,delayed 40 mg PO DAILY 07/3007/30/24 release Previous Rx's ?Medication ?Instructions ?Recorded hydrocodone 5 mg-acetaminophen 325 1 tab PO TID PRN pa in 4 days #12 07/30/24 mg tablet tabs Allergies Allergy/AdvReac Type Severity Reaction Status Date / Time Penicillins Allergy Severe Hives Verified 05/25/23 11:36 Opioid HPI Opioid Management Most Recent Opioid Data: Last Pain Scale 3 04/11/24, 12:08 Review of Systems ROS Status of ROS 10 or more systems reviewed and unremark able except as noted in history and below PFSH PFSH Social History Little interest or pleasure in doing things: not at all Feeling down, depressed, or hopeless: not at all Exam Narrative Exam Narrative: Patient is afebrile. Vitals are stable. He is obese in appearance. Abdomen is protuberant, soft and nontender and there is no suprapubic tenderness. He does not have any groin adenopathy or inguinal hernias. He does not have abnormal lie of the left testicle and it is not significantly tender to palpation. The right testicle is normal. There is no urethral drainage. No external genital lesions are identified. Constitutional Vital Signs, click to edit/add: Last Vital Signs Temp 97.6 F 07/30/24 17:46 Pulse 77 07/30/24 17:46 Resp 18 07/30/24 17:46 BP 136/89 07/30/24 17:46 Pulse Ox 96 07/30/24 17:46 O2 Del Method Room Air 07/30/24 17:46 Course Vital Signs Vital signs: Vital Signs Temperature 97.6 F 07/30/24 17:46 Pulse Rate 77 07/30/24 17:46 Respiratory Rate 18 07/30/24 17:46 Blood Pressure 136/89 07/30/24 17:46 Pulse Oximetry 96 07/30/24 17:46 Oxygen Delivery Method Room Air 07/30/24 17:46 Temperature 97.6 F 07/30/24 17:46 Pulse Rate 77 07/30/24 17:46 Respiratory Rate 18 07/30/24 17:46 Blood Pressure 136/89 07/30/24 17:46 Pulse Oximetry 96 07/30/24 17:46 Oxygen Delivery Method Room Air 07/30/24 17:46 Medical Decision Making MDM Narrative Medical decision making narrative: Urinalysis completely benign. Patient does not have torsion based on my exam. He could have a hydrocele or varicocele. He is placed on [place] for pain and referred to outpatient urology follow-up. He is already taking diclofenac so I am not adding a second nonsteroidal. Lab Data Labs: Lab Results 07/30/24 Range/Units 18:05 Urine Color Lt. yellow (YELLOW) Urine Clarity Clear (CLEAR) Urine pH 6.0 (5.0-9.0) Ur Specific [place] >=1.030 A (1.005-1.025) Urine Protein Negative (NEG/TRACE) mg/dL Urine Glucose (UA) Negative (NEGATIVE) mg/dL Urine Ketones Negative (NEGATIVE) mg/dL Urine Occult Blood Negative (NEGATIVE) Urine Nitrite Negative (NEGATIVE) Urine Bilirubin Negative (NEGATIVE) Urine Urobilinogen 0.2 (0.2-1.0) EU/dL Ur Leukocyte Esterase Negative (NEGATIVE) Discharge Plan Discharge Chief Complaint: Urogenital-Male Clinical Impression: Pain in left testicle Patient Disposition: Home, Self-Care Time of Disposition Decision: 18:38 Condition: Good Mode of Transportation: Private Vehicle Prescriptions / Home Meds: New hydrocodone-acetaminophen 5-325 mg tablet 1 tab PO TID PRN (Reason: pain) 4 Days Qty: 12 0RF No Action pantoprazole 40 mg tablet,delayed release (DR/EC) 40 mg PO DAILY diclofenac sodium 75 mg tablet,delayed release (DR/EC) 75 mg PO Q12H PRN (Reason: pain) Print Language: Swedish Instructions: Testicle Pain (ED) Additional Instructions: Wear supportive underwear. Follow-up with urologist for further workup. Return for worsening symptoms. Referrals: Jim Noble MD [Physician] - As soon as possible YOEL CASTREJON [Primary Care Provider, Family Practice] - 1 week
[2024-07-30 18:17] LABS: Bilirubin Urine NEGATIVE (NEGATIVE); Blood Urine NEGATIVE (NEGATIVE); Clarity Urine CLEAR (CLEAR); Color Urine LT. YELLOW (YELLOW); Glucose Urine UA NEGATIVE (NEGATIVE); Ketones Urine NEGATIVE (NEGATIVE); Leukocyte Esterase Urine NEGATIVE (NEGATIVE); Nitrite Urine NEGATIVE (NEGATIVE); Protein Urine NEGATIVE (NEG/TRACE); Specific Gravity Urine >=1.030 (1.005-1.025); Urobilinogen Urine 0.2 EU/dL (0.2-1.0)
[2024-07-30 18:27] LABS: Urine Microscopic Indicated NO
== END 2024-07-30 19:03 | disposition home or self-care (01) ==
PROVIDERS: Emergency Provider Emergency Medicine; PCP Nurse Practitioner Family
DX: N50.812 Left testicular pain (principal)
CPT/HCPCS: 81003; 99283

== ENCOUNTER 2024-08-09 13:49 | Outpatient (OUT) | payer OTHER, SELFPAY ==
--- OUTSIDE RECORDS SUMMARY | 2023-11-29 11:30 | XMS_ITS ---
Author Organization [facility] in [place] Address [address] [place] [address] Care Team Providers Care Social Research Assistant Name Role Phone Elda Rao Primary Care Provider Allergies Allergen (clinical drug ingredient) Drug/Non Drug Allergy documented on EMR Reaction Allergy Type Onset Date Status Penicillin hives Drug Allergy Active Results Component Value Reference Range Notes CT abdomen pelvis w con Reviewed date:12/07/2023 10:19:43 AM Interpretation: Performing Lab: Notes/Report: Source Facility: [place] [address] CT Scan Report Signed Patient: ANTOINE GARCIA MR#: [id number] : 1985 Acct:[id number] Age/Sex: 38 / M ADM Date: 12/07/23 Loc: CT Attending Dr: ELDA RAO Ordering Physician: ELDA RAO Date of Service: 12/07/23 Procedure(s): CT abdomen pelvis w con Accession Number(s): [id number] cc: ELDA RAO [address] [address] Patient Name: ANTOINE GARCIA MRN: [id number] date: 1985 Sex: M Assigned Patient Location: CT Current Patient Location: CT Accession/Order Number: [id number] Exam Date: 12/07/2023 08:30 Report Date: 12/07/2023 09:20 At the request of: ELDA RAO Procedure: CT abdomen pelvis w con EXAM: CT abdomen pelvis w con HISTORY: Abdominal Pain R10.9 COMPARISON: None. TECHNIQUE: Following intravenous administration of 100 cc of Omnipaque 300, axial soft tissue windows of the abdomen and pelvis were performed with coronal and sagittal reformats. CT dose reduction technique was used including Automated Exposure Control. Findings: ABDOMEN: There is fatty infiltration of the liver. Focal fatty sparing adjacent to the gallbladder fossa. The gallbladder, pancreas, and adrenal glands are unremarkable. Splenic calcifications likely relating to prior granulomatous disease. No renal stones or collecting system dilatation. Left renal cysts. There is also a left renal low-attenuation lesion, too small to characterize. The visualized portions of the bilateral ureters are nondilated. The bowel is unremarkable without evidence of thickening or reduction. The appendix is nondilated. The aorta is normal caliber. No enlarged abdominal lymph nodes or free abdominal fluid. Pelvis: Unremarkable bladder. The prostate is nonenlarged. No enlarged pelvic lymph nodes or free pelvic fluid. No aggressive sclerotic or lytic osseous lesions. CT/CT abdomen pelvis w con IMPRESSION: 1. No acute abdominal or pelvic abnormality. 2. Fatty liver. Electronically authenticated by: MERYL REYNOSO Date: 12/07/2023 09:20 Dictated By: Meryl Reynoso M.D. Signed By: 12/07/23921 DD/ 9 TD/TT: Escalator Service Mechanic: [place] [address] CT Scan Report Signed Patient: ANTOINE GARCIA MR#: [id number] : 1985 Acct:[id number] Age/Sex: 38 / M ADM Date: 12/07/23 Loc: CT Attending Dr: ELDA RAO Ordering Physician: ELDA RAO Date of Service: 12/07/23 Procedure(s): CT abd omen pelvis w con Accession Number(s): [id number] cc: ELDA RAO [place] [address] Patient Name: ANTOINE GARCIA MRN: [id number] date: 1985 Sex: M Assigned Patient Location: CT Current Patient Location: CT Accession/Order Numb er: [id number] Exam Date: 12/07/2023 08:30 Report Date: 12/07/2023 09:20 At the request of: ELDA RAO Procedure: CT abdome n pelvis w con EXAM: CT abdomen pelvis w con HISTORY: Abdominal Pain R10.9 COMPARISON: None. TECHNIQUE: Following intravenous administration of 100 cc of Omnipaque 300, axial soft tissue wi ndows of the abdomen and pelvis were performed with coronal and sagittal reforma ts. CT dose reduction technique was used including Automated Exposure Control. Findings: ABDOMEN: There is fatty infil tration of the liver. Focal fatty sparing adjacent to the gallbladder fossa. The gallbladder, cowan creas, and adrenal glands are unremarkable. Splenic calcificatio ns likely relating to prior granulomatous disease. No renal stones or c ollecting system dilatation. Left renal cysts. There is also a left renal low-attenuation lesion, too small to characterize. The visualized portions of the bilateral ureters are nondilated. The bowel is unremar kable without evidence of thickening or reduction. The appendix is nondilated. The aorta is normal caliber. No enlarged abdomina l lymph nodes or free abdominal fluid. Pelvis: Unremarkable bladder. The prostate is nonenlarged. No enlarged pelvic l ymph nodes or free pelvic fluid. No aggressive sclero tic or lytic osseous lesions. C T/CT abdomen pelvis w con IMPRESSION: 1. No acute abdomina l or pelvic abnormality. 2. Fatty liver. Electronically authe nticated by: MERYL REYNOSO Date: 12/07/2023 09:20 Dictated By: Meryl Reynoso M.D. Signed By: 12/07/23921 DD/ 9 TD/TT: Escalator Service Mechanic: Reason For Referral Diagnosis 1 Abdominal pain (R10. 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 C/o issues with GERD. Says very gassy, vomiting/diarrhea, bloating and abd cramping, Use to see Dr. Gurrola in [place]. Has been about 8 years Medications Medication SIG (Take, Route, Frequency, Duration) Notes Start Date End Date Status Pantoprazole Sodium 40 MG 1 tablet Orall y Once a day for 30 days 11/29/2023 Active Ondansetron HCl 4 MG 1 tablet Orally BID prn for 14 days 11/29/2023 Active Levsin 0.125 MG 1 tablet as needed O rally TID prn for 10 days 11/29/2023 Active Social History Tobacco Use: Social History Observation Description Date Details (start date - stop date) Former Smoker 11/18/2003 - 11/26/2019 Tobacco Control (Standard) Question Answer Notes Tobacco use: Former smoker When did you start smoking? 11/18/2003 When did you stop smoking? 11/26/2019 AUDIT-C (Standard) Question Answer Notes Did you have a drink containing alcohol in the p ast year? No Points 0 Interpretation Negative Problems Problem Type SNOMED Code ICD Code Onset Dates Problem Status W/U Status Risk Notes Problem Gastroesophageal reflux disease (012695921) GERD (gastroeso phageal reflux disease) (K21.9) Active confirmed Vital Signs Blood pressure systolic 132 mm Hg 11/29/19 24 Blood pressure diastolic 82 mm Hg 024 Height 71 in 11/29/2023 Weight 255.6 lbs 11/29/2023 BMI 35.65 kg/m2 11/29/2023 Encounters Encounter Location Date Provider Diagnosis [facility] [address] [place] [address] 11/29/2023 Elda Jalen Abdominal pain R10.9 and GERD (gastroesophageal reflux disease) K21.9 Assessments Encounter Date Diagnosis (ICD Code) Assessment Notes Treatment Notes Treatment Clinical Notes Section Notes 11/29/2023 Abdominal pain (ICD-10 - R10.9) referral to GI 11/29/2023 GERD (gastroesophage al reflux disease) (ICD-10 - K21.9) Plan Of Treatment Medication Medication Name Sig Start Date Stop Date Notes Pantoprazole Sodium 40 MG 1 tablet Orall y Once a day for 30 days 11/29/2023 Ondansetron HCl 4 MG 1 tablet Orally BID prn for 14 days 11/29/2023 Levsin 0.125 MG 1 tablet as needed O rally TID prn for 10 days 11/29/2023 Treatment Notes Assessment Notes Abdominal pain referral to GI Referrals Referral Date Details 11/30/2023 11/30/2023, Vianca Waters Next Appt Details Follow Up: prn, Reason: Progress Notes * Antoine GARCIA TDOB:1985 (38 yo M)Acc No.[id number]:11/29/2023 New Patient Patient: Antoine HECTOR Provider: Gregory Rao ([facility]), ELECTRICAL CONTROLS TECHNICIAN :1985 A ge:38 Y S ex:Male Date:11/29/2023 Address:[address] [place], [place] [id number] Check In:03:32 PM ESTCheck O ut:04:06 PM EST Subjective: * Chief Complaints: * 1 . 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 C/o issues with GERD. Says very gassy, vomiting/diarrhea, bloating and abd cramping. 2. Use to see Dr. Gurrola in [place]. Has been about 8 years. 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 6 am last BM soft formed stool this am. W ell Child: H (Home) g ood family relationships, communication between adolescents, has responsibilities at home. E (Education) A s, Bs, Cs, failing, good attendance, special classes. A (Actvities) s ports/hobbies, exercise 3x week, limit TV, friends. A (Auto/Safety) s eatbelts, bike helmets, water safety, sunscreen use. D (Diet) b alanced diet, adequate iron/calcium intake, limit high fat/sugar snacks, positive body image, dieting, dental hygiene/visit addressed. S (Suicide Risk) e motionally healthy, denies feelings of depression, denies suicidal ideation, feelings of depression, suicidal ideation, anxiety. S (Sexually Active) y es, no. S (Sex) a bstinence, safe sex, using control method, risky behaviors, STD counseling. * ROS: G eneral/Constitutional: Fever d enies, denies. H eadache d enies. W eight loss d enies. O phthalmologic: Discharge d enies, denies. E ye Pain d enies. V ision screen f ixes and follows, parent reports no concern. I tching and redness d enies. E NT: Nasal discharge d enies. N jimy congestion d enies.?Hearing screen r esponds to sounds, parent reports no concern. S ore throat d enies. C ardiovascular: Chest tightness/ heavy pressure d enies. R apid heart rate d enies. S welling of extremities d enies. C hest pain d enies. ? R espiratory: Productive cough d enies. B reathing pattern n ormal pattern, no apnea. C hest pain d enies. C ough d enies, denies. S hortness of breath d enies. W heezing d enies. G astrointestinal: Acid Reflux/GERD/Heartburn a dmits. A bdominal pain c ramping, generalized and bloating. C onstipation d enies, denies. D ecreased appetite d enies. D iarrhea a dmits. N ausea d enies. V omiting a dmits. G enitourinary: Urinary incontinence d enies. P ainful urination d enies. M usculoskeletal: Back pain d enies. N asia pain d enies. M uscle aches d enies. S kin: Rash d enies, denies. S kin lesion(s) d enies. * Active Problem List K21.9 GERD (gastroesophage al reflux disease) Modified On:11/29/2023W/U Status:confirmed * Medical History: G ERD (gastroesophageal reflux disease). * Family History: N o Family History documented.. * Social History: T obacco Use: T obacco Control (Standard) T obacco use: F ormer smoker W hen did you start smoking? 0 11/18/2003 W hen did you stop smoking? 0 11/26/2019 D rug/Alcohol: A BRIGHT-C (Standard) D id you have a drink containing alcohol in the past year? N o P oints 0 I nterpretation N egative * Medications: N one * Allergies: P enicillin: hives. Objective: * Vitals: W t:255.6lbs, Ht: 71 in, BP:132/82mm Hg, BMI:35.65Index, Ht-cm: 180.34 cm, Wt-k.94 kg. * Examination: G eneral Examinations: GENERAL APPEARANCE: a lert and oriented, in no acute distress, uncomfortable. EYES: c onjunctiva normal, sclera non-icteric. NOSE: n ormal external appearance. LUNGS: c lear to auscultation bilaterally. CARDIO: r egular rate and rhythm, S1, S2 normal. ABDOMEN: b owel sounds diminished, generalized discomfort with palpation. MUSCULOSKELETAL G ait and station normal. SKIN: w arm and dry. Assessment: * Assessment: 1. A bdominal pain - R10.9 (Primary) 2 . G ERD (gastroesophageal reflux disease) - K21.9 Plan: * Treatment: 2. G ERD (gastroesophageal reflux disease) Start Pantoprazole Sodium Tablet Delayed Release, 40 MG, 1 tablet, Orally, Once a day, 30 days, 30, Refills 5. * Preventive Medicine: Screenings/Counseling: B [place] ACTION PLAN Above Normal BMI Follow-up D ietary management education, guidance, and counseling See treatment section of progress note for complete details of management plan. P EDIATRIC COUNSELING (Child and Adolescent) Counseling for proper nutrition provided Y es (Child and Adolescent) Counseling for physical activity provided Y es Peds-Health Promotion: O ral health b gold teeth, dental appointment. P ersonal hygiene . S exual health s exual development, change in body structure , safe sex , sexually transmitted disease education , use of condoms. S kin/UV protection . S moke exposure . Peds-Injury Prevention/Safety: B donell safety a lways wear helmet , wear protective knee/elbow pads , appropriate footwear. C ar restraints and seat belts . D rugs/alcohol/tobacco u nsafe habits discussed. H ot water safety (<125 degrees F) . I nstall and/or check smoke alarms regularly . S upervision m atches/poisons/guns. W ater safety s upervised water activities , water safety, swim with a eliezer. Peds-Nutrition Counseling: H ealthy food choices: n o forced foods , family meals as often as possible, limit or eliminate junk food, adequate calcium , adequate iron containing foods. W eight management: . Peds-Social/Behavioral Counseling: A ctivities/Duties r esponsible for some household activities , organized sports/activities. D eceptive ads . D iscipline r ules of behavior. E ncourage reading g ood reading habits - self reading. H obbies . R elationships a dvised to cultivate safe relationships , caution about peer pressure , teen support groups , how to say no , abstinence. S chool issues c lassroom review , homework supervision. T V/game time l imit and control TV and game time.? Peds-Violence Prevention: G un safety . G ang membership and violence . * Follow Up: p rn * * Sign off status: Completed Visit Status: C HK (Check Out) true * Provider: Gregory Rao ([facility]), ELECTRICAL CONTROLS TECHNICIAN Date: 0 11/29/2023 Generated for Fabián ellsworth/Dipti/Braditting on: 0 08/09/2024 01:50 PM EDT History and Physical Notes * HPI (History of Present Illness) Category Sub-Category Detail Notes Category Not es General GI in past scopes in past GERD, colon polyp omeprazole OTC pantoprazole was better missed work last week, due to GI sx vomiting, diarrhea, bloating and cramping vomited yesterday last, constantly feels like needs go to bathroom, no watery stools today cramping everywhere cooks at home, sometimes vending machine food at work no surgeries migraines in past not recently SOB with exertion due to overweight GI [place] quickest? 6 am last BM soft formed stool this am Well Child H (Home) good family rela tionships, communication between adolescents, has responsibilities at home E (Education) As, Bs, Cs, failing, good attendance, special classes A (Actvities) sports/hobbies, exer cise 3x week, limit TV, friends A (Auto/Safety) seatbelts, bike helm ets, water safety, sunscreen use D (Diet) balanced diet, adequ ate iron/calcium intake, limit high fat/sugar snacks, positive body image, dieting, dental hygiene/visit addressed S (Sexually Active) yes, no S (Suicide Risk) emotionally healthy, denies feelings of depression, denies suicidal ideation, feelings of depression, suicidal ideation, anxiety S (Sex) abstinence, safe sex , using control method, risky behaviors, STD counseling Examination Category Sub-Category Detail Notes Category Not es General Examinations GENERAL APPEARANCE: alert a nd oriented, in no acute distress, uncomfortable EYES: conjunctiva normal, sclera non-icteric EARS: NOSE: normal external appe arance THROAT: CARDIO: regular rate and rhy thm, S1, S2 normal LUNGS: clear to auscultatio n bilaterally ABDOMEN: bowel sounds diminis hed, generalized discomfort with palpation SKIN: warm and dry BACK: MUSCULOSKELETAL: Gait and station nor mal LYMPH NODES: Consultation Request Notes Referral Date Referring Provider Referred Provider Not es 11/30/2023 Elda Rao, Vianca
--- OUTSIDE RECORDS SUMMARY | 2023-12-07 06:18 | XMS_ITS ---
Author Organization [facility] [place] Address [address] [place] [address] Care Team Providers Care Wash Plant Operator Name Role Phone Elda Rao Primary Care Provider REASON FOR VISIT CT Results - LMTCB Encounters Encounter Location Date Provider Diagnosis [facility] [address] [place] [address] 12/07/2023 Elda Rao Plan Of Treatment No Information Progress Notes * ZION Antoine TDOB:1985 (38 yo M)Acc No.[id number]:12/07/2023 Patient: Antoine HECTOR :1985 A ge:38 Y S ex:Male Address:[address] [place] [address], [id number] * true * Date: Generated for Fabián ellsworth/Dipti/eTransmitting on: 0 08/09/2024 01:50 PM EDT
--- OUTSIDE RECORDS SUMMARY | 2024-04-24 07:30 | XMS_ITS ---
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 Was seen at [facility] ED 04/11. No actual injury. Just over use he thinks, Also c/o left flank pain since Decemeber Medications Medication SIG (Take, Route, Frequency, Duration) Notes Start Date End Date Status Pantoprazole Sodium 40 MG 1 tablet Orall y Once a day for 30 days 11/29/2023 Active Diclofenac Sodium 75 MG 1 tablet as need ed Orally Twice a day for 30 days 04/24/2024 Active Social History Tobacco Use: Social History [...] ast year? No Points 0 Interpretation Negative Vital Signs Blood pressure systolic 128 mm Hg 04/24/19 25 Blood pressure diastolic 80 mm Hg 025 Height 71 in 04/24/2024 Weight 249.8 lbs 04/24/2024 BMI 34.84 kg/m2 04/24/2024 Encounters Encounter Location Date Provider Diagnosis [facility] [address] [place] [address] 04/24/2024 Elda Rao Tendonitis M77.9 and Left flank pain R10.9 Assessments Encounter Date Diagnosis (ICD Code) Assessment Notes Treatment Notes Treatment Clinical Notes Section Notes 04/24/2024 Tendonitis (ICD-10 - M77.9) 04/24/2024 Left flank pain (ICD-10 - R10.9) discussed imaging continue to monitor Plan Of Treatment Medication Medication Name Sig Start Date Stop Date Notes Diclofenac Sodium 75 MG 1 tablet as need ed Orally Twice a day for 30 days 04/24/2024 Treatment Notes Assessment Notes Left flank pain discussed imaging continue to monitor Next Appt Details Follow Up: prn, Reason: Progress Notes * Antoine GARCIA TDOB:1985 (39 yo M)Acc No.[id number]:04/24/2024 Progress Note Patient: Antoine HECTOR Provider: Gregory Rao ([facility]), SALESPERSON FLOWERS :1985 A ge:39 Y S ex:Male Date:04/24/2024 Address:[address] [place], [place] [id number] Check In:11:35 AM ESTCheck O ut:11:49 AM EST Subjective: * Chief Complaints: * 1 . Presents to office for bilat wrist pain. Was seen at [facility] ED 04/11. No actual injury. Just over use he thinks. 2. Also c/o left flank pain since Decemeber. * HPI: D epression Screening: PHQ-9 L ittle interest or pleasure in doing things?More than half the days F eeling down, depressed, or hopeless S everal days T rouble falling or staying asleep, or sleeping too much N early every day F eeling tired or having little energy S everal days P oor appetite or overeating S everal days F eeling bad about yourself or that you are a failure, or have let yourself or your family down S everal days T rouble concentrating on things, such as reading the newspaper or watching television N ot at all M oving or speaking so slowly that other people could have noticed; or the opposite, being so fidgety or restless that you have been moving around a lot more than usual N ot at all T houghts that you would be better off or of hurting yourself in some way N ot at all T otal Score 9 I nterpretation M ild Depression G eneral: quit job OTC meds and wrist braces help some left flank pain since February worse with coughing, sneezing deep dull no known injury good days and bad days no kidney stones. * ROS: G eneral/Constitutional: Fever d enies. H eadache d enies. W eight loss?denies. O phthalmologic: Discharge d enies. E ye Pain d enies. I tching and redness d enies. E NT: Nasal discharge d enies. N jimy congestion d enies.?Sore throat d enies. C ardiovascular: Chest tightness/ heavy pressure d enies. R apid heart rate d enies. S welling of extremities d enies. C hest pain d enies. ? R espiratory: Productive cough d enies. C hest pain d enies. C ough d enies. S hortness of breath d enies. W heezing d enies. ? G astrointestinal: Abdominal pain d enies. C onstipation d enies. D ecreased appetite d enies. D iarrhea d enies. N ausea d enies. V omiting?denies. G enitourinary: Urinary incontinence d enies. P ainful urination d enies. M usculoskeletal: Patient complaining of b ilateral wrist pain. B ack pain d enies. N asia pain d enies. M uscle aches d enies. S kin: Rash d enies. S kin lesion(s) d enies. ? l eft flank pain. * Active Problem List K21.9 GERD (gastroesophage al reflux disease) Modified On:11/29/2023W/U Status:confirmed * Medical History: G ERD (gastroesophageal reflux disease). * Family History: F ather: , from rectal cancer at 65, COPD, diagnosed with Other malignant neoplasm of unspecified site. M other: alive. B edis(s): alive. S ister(s): alive. 4 brother(s) , 1 sister(s) . 2 son(s) , 2 daughter(s) . . * Social History: T obacco Use: T obacco Control (Standard) T obacco use: F ormer smoker W gail did you start smoking? 0 11/18/2003 W gail did you stop smoking? 0 11/26/2019 D rug/Alcohol: A BRIGHT-C (Standard) D id you have a drink containing alcohol in the past year? N o P oints 0 I nterpretation N egative * Medications: T aking Pantoprazole Sodium 40 MG Tablet Delayed Release 1 tablet Orally Once a day , Discontinued Levsin(Hyoscyamine Sulfate) 0.125 MG Tablet 1 tablet as needed Orally TID prn , Notes: abdominal pain, cramps, Discontinued Ondansetron HCl 4 MG Tablet 1 tablet Orally BID prn , Notes: for nausea, vomiting, Medication List reviewed and reconciled with the patient * Allergies: P enicillin: hives. Objective: * Vitals: W t:249.8lbs, Ht: 71 in, BP:128/80mm Hg, BMI:34.84Index, Ht-cm: 180.34 cm, Wt-k.31 kg. * Examination: G eneral Examinations: GENERAL APPEARANCE: a lert and oriented, i n no acute distress. EYES: c onjunctiva normal, sclera non-icteric. NOSE: n ormal external appearance. LUNGS: c lear to auscultation bilaterally. CARDIO: r egular rate and rhythm, S1, S2 normal, no edema.? ABDOMEN: s oft, nontender. MUSCULOSKELETAL: G ait and station normal brace to left wrist, decreased ROM due to wrist pain. SKIN: w arm and dry. Assessment: * Assessment: 1. T endonitis - M77.9 (Primary) 2 . L eft flank pain - R10.9 ? Plan: * Treatment: 2. L eft flank pain Notes: discussed imaging continue to monitor * Preventive Medicine: Screenings/Counseling: B [place] ACTION PLAN Above Normal BMI Follow-up D ietary management education, guidance, and counseling * Follow Up: p rn * * Sign off status: Completed Visit Status: C HK (Check Out) true * Provider: Gergory Rao ([facility]), [employer]ESPERSON [employer]OWERS Date: 0 04/24/2024 Generated for Fabián ellsworth/Dipti/eThipolitosmitting on: 0 08/09/2024 01:50 PM EDT History and Physical Notes * HPI (History of Present Illness) Category Sub-Category Detail Notes Category Not es Depression Screening PHQ-9 Little inte rest or pleasure in doing things: More than half the days Feeling down, depressed, or hopeless: Se veral days Trouble falling or staying asleep, or sl eeping too much: Nearly every day Feeling tired or having little energy: S everal days Poor appetite or overeating: Several day s Feeling bad about yourself o r that you are a failure, or have let yourself or your family down: Several days Trouble concentrating on thi ngs, such as reading the newspaper or watching television: Not at all Moving or speaking so slowly that other people could have noticed; or the opposite, being so fidgety or restless that you have been moving around a lot more than usual: Not at all Thoughts that you would be b makayla off or of hurting yourself in some way: Not at all Total Score: 9 Interpretation: Mild Depression General quit job OTC meds and wrist braces help some left flank pain since February worse with coughing, sneezing deep dull no known injury good days and bad days no kidney stones Examination Category Sub-Category Detail Notes Category Not es General Examinations GENERAL APPEARANCE: alert a nd oriented, in no acute distress EYES: conjunctiva normal, sclera non-icteric EARS: NOSE: normal external appe arance THROAT: CARDIO: regular rate and rhy thm, S1, S2 normal, no edema LUNGS: clear to auscultatio n bilaterally ABDOMEN: soft, nontender SKIN: warm and dry BACK: MUSCULOSKELETAL: Gait and station nor mal brace to left wrist, decreased ROM due to wrist pain LYMPH NODES:
--- OUTSIDE RECORDS SUMMARY | 2024-08-09 13:51 | XMS_ITS | CCD ---
Author Organization [facility]iniSytx Care Team Providers Care Clip On Sunglasses Assembler Name Role Phone DR LEWIS BHAGAT Admitting Unavailable REQUEST, DR JUNIOR LISTED Primary Care Unavailearline DUNN, DR TORIN Jackson Consulting Unavailable OLAYINKA, DR SAUCEDO Attending Unavailable OLAYINKA, DR SAUCEDO Consulting Unavailable ELAYNE ALVARADO Attending CHAITANYA Henson Consulting ELAYNE Santos Admitting Unavailable REQUEST, DR JUNIOR LISTED Primary Care UnavailKARLA Ash Consulting Unavailable YOEL CASTREJON Primary Care Physician Vianca Waters Referring Unavailable Vianca Waters Admitting Unavailable Vianca Waters Attending Unavailable Vianca Waters Attending Unavailable Vianca Waters Attending Unavailable BRANDON DELAROSA Attending BRANDON Aragon Attending Susannah moreno Allergies Allergy Classification Reported Allergen(s) Allergy Type Date of Onset Reaction(s) Facility (3 sources) Amoxicillin; Translations: [amoxicillin] Drug Allergy [facility] Repository (6 sources) Penicillins; Translations: [penicillins] Drug allergy (disorder) [facility] Repository (4 sources) Amoxicillin; Translations: [amoxicillin] Drug Allergy Unknown (qualifier value) [facility] (1 source) Penicillin; Translations: [penicillins] Drug Allergy [facility] Medications Current Medications Medication Drug Class(es) Dates Sig (Normalized) Sig (Original) acetaminophen 325 mg / HYDROcodone bitartrate 5 mg oral tablet (1 source) Opioid Agonist Start: 08-08-2024 take 1 tablet by mouth every six hours for pain acetaminophen-hy drocodone 325 mg-5 mg oral tablet 1 tab(s), Oral, q6hr for pain, Refill(s) 0 Start Date: 08/08/24 Status: Ordered Repeat number: 1 bifidobacterium infantis 4 mg oral capsule (3 sources) Start: 12-31-2019 take 1 capsule by mouth once daily Align 4 mg oral capsule 4 mg = 1 cap(s), Oral, Daily, Take after completing the Antibiotics course, # 28 cap(s), Refills(s) 0, Pharmacy: [facility], 180, cm, 12/30/19 8:59:00 EDT, Height/Length Dosing, 112, kg, 12/30/19 8:59:00 EDT, Weight Dosing Start Date: 12/31/19 Status: Ordered cholestyramine resin 4000 mg powder for oral suspension (3 sources) Bile Acid Sequestrant Start: 12-19-2023 Questran 4 g/9 g oral powder = 1 packet(s), Oral, BID, # 60 EA, Refills(s) 2, Pharmacy: [facility], 180, cm, 12/19/23 14:34:00 EDT, Height/Length Dosing, 115.8, kg, 12/19/23 14:34:00 EDT, Weight Dosing Start Date: 12/19/23 Status: Ordered diclofenac sodium 75 mg delayed release oral tablet (1 source) Nonsteroidal Anti-inflammatory Drug Start: 08-08-2024 take 1 tablet by mouth twice daily diclofenac sodium 75 mg Oral EC Tab 75 mg = 1 tab(s), Oral, BID, # 180 tab(s), Refills(s) 0 Start Date: 08/08/24 Status: Ordered Quantity: 180.0 Unit: tab(s) Repeat number: 1 hyoscyamine sulfate 0.125 mg oral tablet (3 sources) Start: 12-19-2023 hyoscyamine 0.125 mg oral Tab 0.125 mg = 1 tab(s), Oral, PRN Nausea/Vomiting, Refills(s) 0 Start Date: 12/19/23 Status: Ordered levoFLOXacin 500 mg oral tablet (1 source) Quinolone Antimicrobial Start: 08-08-2024 End: 08-18-2024 take 1 tablet by mouth every twenty-four hours Levaquin 500 mg Tab 500 mg = 1 tab(s), Oral, q24hr, X 10 day(s), # 10 tab(s), Refills(s) 0, Pharmacy: [facility], 179.9, cm, 08/08/24 9:28:00 EDT, Height/Length Dosing, 108, kg, 08/08/24 9:28:00 EDT, Weight Dosing Start Date: 08/08/24 Stop Date: 08/18/24 Status: Ordered Quantity: 10.0 Unit: tab(s) Repeat number: 1 linaclotide 0.072 mg oral capsule (1 source) Guanylate Cyclase-C Agonist Start: 01-18-2024 take 1 capsule by mouth once daily Linzess 72 mcg oral capsule 72 mcg = 1 cap(s), Oral, Daily, # 30 cap(s), Refills(s) 3, Pharmacy: [facility], 180, cm, 01/18/24 9:06:00 EST, Height/Length Dosing, 118.9, kg, 01/18/24 9:06:00 EST, Weight Dosing Start Date: 01/18/24 Status: Ordered Aleve (4 sources) Nonsteroidal Anti-inflammatory Drug Start: 12-19-2023 take 1 mg by mouth every twelve hours as needed for pain Aleve mg, Oral, q12hr, PRN as needed for pain, Refills(s) 0 Start Date: 12/19/23 Status: Ordered Repeat number: 1 Start: 12-19-2023 take 1 mg by mouth e very twelve hours as needed for pain Aleve [...] 12/19/23 Status: Ordered Protonix 40 mg Tab-EC (4 sources) Start: 01-28-2020 take 1 tablet by mouth twice daily 30 minutes before mealtime Protonix 40 mg Tab-EC 40 mg = 1 tab(s), Oral, BID, Take 30 minutes before meals, # 120 tab(s), Refills(s) 11, Pharmacy: [facility], 180, cm, 12/30/19 8:59:00 EDT, Height/Length Dosing, 112, kg, 12/30/19 8:59:00 EDT, Weight Dosing Start Date: 01/28/20 Status: Ordered Quantity: 120.0 Unit: tab(s) Repeat number: 12 Start: 01-28-2020 take 1 tablet by delmis twice daily 30 minutes before mealtime Protonix 40 mg Tab-EC 40 mg = 1 tab(s), Oral, BID, Take 30 minutes before meals, # 120 tab(s), Refills(s) 11, Pharmacy: [facility], 180, cm, 12/30/19 8:59:00 EDT, Height/Length Dosing, 112, kg, 12/30/19 8:59:00 EDT, Weight Dosing Start Date: 01/28/20 Status: Ordered tamsulosin hydrochloride 0.4 mg oral capsule (1 source) alpha-Adrenergic Kristen Start: 08-08-2024 take 1 capsule by mouth once daily Flomax 0.4 mg Cap 0.4 mg = 1 cap(s), Oral, Daily, # 30 cap(s), Refills(s) 11, Pharmacy: [facility], 179.9, cm, 08/08/24 9:28:00 EDT, Height/Length Dosing, 108, kg, 08/08/24 9:28:00 EDT, Weight Dosing Start Date: 08/08/24 Status: Ordered Quantity: 30.0 Unit: cap(s) Repeat number: 12 Completed/Discontinued Medications Medication Drug Class(es) Dates Sig (Normalized) Sig (Original) psyllium 525 mg oral capsule (3 sources) Start: 12-31-2019 take 8 capsules by mouth once daily Metamucil 525 mg oral capsule 1,050 mg = 2 cap(s), Oral, Daily, Take 2 hour apart from the other medications with at least 8 ounces of water, # 160 cap(s), Refills(s) 1, Pharmacy: [facility], 180, cm, 12/30/19 8:59:00 EDT, Height/Length Dosing, 112, kg, 12/30/19 8:59:00 EDT, Weight Dosing Start Date: 12/31/19 Status: Ordered Problems Active Problems Problem Classification Problem Date Documented Da te Episodic/Chronic Abdominal pain (9 sources) Abdominal pain; Translations: [Unspecified abdominal pain] Onset: 12-19-2023 Episodic Esophageal disorders (6 sources) Gastro-esophageal reflux disease with esophagitis; Translations: [Gastro-esophageal reflux disease with esophagitis] Onset: 12-19-2023 Chronic Hyperplasia of prostate (2 sources) Benign prostatic hypertrophy with outflow obstruction; Translations: [Benign prostatic hyperplasia with lower urinary tract symptoms] Onset: 08-08-2024 Chronic Nausea and vomiting (6 sources) Vomiting; Translations: [Vomiting, unspecified] Onset: 12-19-2023 Episodic Nonspecific chest pain (4 sources) Chest pain, unspecified; Translations: [Other chest pain] Onset: 02-07-2022 Episodic Other and unspecified benign neoplasm (6 sources) History of polyp of colon; Translations: [Personal history of colon polyps, unspecified] Onset: 12-19-2023 Episodic Other diseases of kidney and ureters (1 source) Urinary tract obstruction; Translations: [Other obstructive and reflux uropathy] Onset: 08-08-2024 Episodic Other gastrointestinal disorders (6 sources) Irritable bowel syndrome; Translations: [Irritable bowel syndrome without diarrhea] Onset: 12-19-2023 Chronic Other gastrointestinal disorders (6 sources) Diarrhea; Translations: [Diarrhea, unspecified] Onset: 12-19-2023 Episodic Other gastrointestinal disorders (6 sources) Abdominal wind pain; Translations: [Gas pain] Onset: 12-19-2023 Episodic Other gastrointestinal disorders (2 sources) Swollen abdomen; Translations: [Abdominal distension (gaseous)] Onset: 12-19-2023 Episodic Other gastrointestinal disorders (4 sources) Abdominal bloating 12-19-2023 Episodic Other gastrointestinal disorders (1 source) Digestive system finding; Translations: [Other specified symptoms and signs involving the digestive system and abdomen] Onset: 01-18-2024 Episodic Other gastrointestinal disorders (2 sources) Defecation straining 01-18-2024 Episodic Other male genital disorders (1 source) Pain in testicle; Translations: [Testicular pain, unspecified] Onset: 08-08-2024 Episodic Residual codes; unclassified (2 sources) Family history of malignant neoplasm of digestive organ; Translations: [Family history of malignant neoplasm of digestive organs] Onset: 12-19-2023 Episodic Residual codes; unclassified (4 sources) Family history of colorectal cancer 12-19-2023 Episodic Substance-related disorders (5 sources) Nicotine dependence, cigarettes, uncomplicated; Translations: [Smoker] Onset: 05-20-2021 02-17-2014 Chronic Comment on above: Added secondary to d ocumentation in Social History. Unclassified (4 sources) Finding of sensation of abdomen 12-19-2023 Viral infection (1 source) Anogenital human papillomavirus infection 08-08-2024 Episodic Past or Other Problems Problem Classification Problem [...] Interpretation Reference Range Facility Ambulatory Visit Summaryon 0 08-08-2024 Ambulatory Visit Summary Ambulatory Visit Summary SALOME DONOVAN :1985 Visit Date:08/08/2024 Ambulatory Visit Instructions Your Diagnosis Testicular pain Your Care Team Attending Physician - EASTON DELAROSA PA-C Primary Care Physician - YOEL CASTREJON CNP This Is Your Medications List levofloxacin (Levaquin 500 mg Tab) tamsulosin (Flomax 0.4 mg Cap) Contact prescribing physician if questions or concerns acetaminophen-hydroco done (acetaminophen-hydroc odone 325 mg-5 mg oral tablet) diclofenac (diclofenac sodium 75 mg Oral EC Tab) naproxen (Aleve) pantoprazole (Protonix 40 mg Tab-EC) Procedures Performed Colonoscopy (01/01/2024), Colonoscopy, EGD (esophagogastroduoden oscopic) electrohydraulic lithotripsy of bezoar in stomach, Tonsillectomy and adenoidectomy. Discharge Vitals Temperature (Oral) 37 ???C Heart Rate (Peripheral) 82 Respiratory Rate 18 Blood Pressure 136/88 Height 179.9 cm Height 71 in Weight 108 kg Weight 238.099 lb BMI 33.37 Medications What How Much When Instructions New levofloxacin (Levaquin 500 mg Tab) 1 Tablets By Mouth Every 24 hours Duration: 10 Days Pickup at [facility] New tamsulosin (Flomax 0.4 mg Cap) 1 Capsules By Mouth Every day Refills: 11 Pickup at [facility] Unchanged acetaminophen-hydroco done (acetaminophen-hydroc odone 325 mg-5 mg oral tablet) 1 Tablets By Mouth Every 6 hours as needed for for pain Contact prescribing physician if questions or concerns Unchanged diclofenac (diclofenac sodium 75 mg Oral EC Tab) 1 Tablets By Mouth 2 times a day Contact [...] if questions or concerns Pharmacy Information [facility]: [address], [place] [id number] [phone] Allergies amoxicillin (Unknown) penicillins Problems Ongoing - Any problem that you are currently receiving treatment for. Abdominal cramping Anogenital human papilloma virus (HPV) infection Bloating Diarrhea Family history of rectal cancer [...] for choosing us for your care. 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 pt has had vasectomy 01/2017 by PRW. Review of Systems PHQ Score Initial Depression Screen Score: 1 SCORE No fever, chills, malaise, myalgia. No dysuria, pain w/ ejaculation, pain w/ BM. No blood in urine, ejaculate, or stool. No acute change in urgency/frequency, straining, stream changes. No discharge, odor, or change in color of urine. No perineal pain/pressure or suprapubic pain. Physical Exam Vitals & Measurements T: 37 ???C(Oral) HR: 82(Peripheral) RR: 18 BP: 136/88 HT: 71 in HT: 179.9 cm WT: 238.099 lb WT: 108 kg BMI: 33.37 General: nontoxic, NAD Mouth: moist mucosa Lungs: normal respiratory effort Cardio: regular rate, good distal perfusion Abdomen: nondistended Neurologic: Grossly normal Skin: No rashes or suspicious lesions : R scrotum/testicle normal. L testicle without swelling, tenderness, nodules. No obvious hydrocele. Question varicocele vs epididymal cysts/epididymitis. Assessment/Plan CT 12/07/23 - no stones, bladder/prostate unremarkable. BERTA 25 1. Testicular pain (N50.819: Testicular pain, unspecified) Pt says when he gets up in the morning, he is fine with no pain but as the day goes on it gets pretty painful. Throbbing. Waxes and wanes. Radiates down left leg. Went to [facility] ER 07/30/24 - no US done. UA neg. Gave pain meds only. Denies new sexual partners or high risk sexual behavior. No concern for STDs. -Scrotal US (scheduled tomorrow). -Levaquin x 10d. Risks/benefits/side effects discussed. Advised pt of rare but serious risk with fluoroquinolones for tendinitis/tendon rupture. He is to avoid strenuous activity/heavy lifting while on med. If develops muscle/joint pain, dc med immediately and contact us. Ordered: E&M of New Patient Moderate 45-59 Min 73908 Urnls Dip Stick Auto w/o Microscopy POC 26600 US Scrotum (Contents) 2. BPH with obstruction/lower urinary tract symptoms (N40.1: Benign prostatic hyperplasia with lower urinary tract symptoms) IPSS 24 QOL 4 Sx present for 10 yrs or so. Slowly worsening. No acute changes. No hx prostatitis. -Start Flomax once daily. Risks/benefits/side effects discussed. Ordered: E&M of New Patient Moderate 45-59 Min 73067 Other obstructive and reflux uropathy (N13.8: Other obstructive and reflux uropathy) Orders: levofloxacin, 500 mg = 1 tab(s), Oral, q24hr, X 10 day(s), # 10 tab(s), Refills(s) 0, Pharmacy: [facility], 179.9, cm, 08/08/24 9:28:00 EDT, Height/Length Dosing, 108, kg, 08/08/24 9:28:00 EDT, Weight Dosing tamsulosin, 0.4 mg = 1 cap(s), Oral, Daily, # 30 cap(s), Refills(s) 11, Pharmacy: [facility], 179.9, cm, 08/08/24 9:28:00 EDT, Height/Length Dosing, 108, kg, 08/08/24 9:28:00 EDT, Weight Dosing Follow-up With When Contact Information ISAURA TAYLOR, EASTON Terry, URL Within 6 weeks [address] [place] [address] [facility] (1) Additional Instructions: Patient Education Benign Prostatic Hyperplasia Problem List/Past Medical History Ongoing Abdominal cramping Anogenital human papilloma virus (HPV) infection Bloating BPH with obstruction/lower urinary tract symptoms Diarrhea Family history of rectal cancer Gas pain GERD with esophagitis History of colon polyps Irritable bowel syndrome Left lower quadrant abdominal pain Smoker.. Straining during bowel movements Upper abdominal pain Vomiting Historical No qualifying data Procedure/Surgical History Colonoscopy (01/01/2024), Colonoscopy, EGD (esophagogastroduoden oscopic) electrohydraulic lithotripsy of bezoar in stomach, Tonsillectomy and adenoidectomy. Medications acetaminophen-hydroco done 325 mg-5 mg oral tablet, 1 tab(s), Oral, q6hr, PRN Aleve, Oral, q12hr, PRN diclofenac sodium 75 mg Oral EC Tab, 75 mg= 1 tab(s), Oral, BID Flomax 0.4 mg Cap, 0.4 mg= 1 cap(s), Oral, Daily, 11 refills Levaquin 500 mg Tab, 500 mg= 1 tab(s), Oral, q24hr Protonix 40 mg Tab-EC, 40 mg= 1 tab(s), Oral, BID, 11 refills Allergies amoxicillin (Unknown) penicillins Social History Alcohol Past. Beer, Liquor. 1-2 times per month., 01/15/2024 Exercise - Does not exercise, 12/19/2018 Other Caffeine-Energy drinks, 12/19/2018 Substance Abuse - Denies Substance Abuse, 12/19/2018 Past. Cocaine, Heroin, Marijuana, Methamphetamines, Prescription medications. Daily. Previous treatment: Outpatient., 01/15/2024 Tobacco Former smoker, quit more than 30 days ago Tobacco Use:. Never Smokeless Tobacco Use:. Cigarettes, Yes, 08/08/2024 Family History Alcoholism: Father and Brother. Rectal cancer: Father. Immunizations Vaccine Date Status influenza, whole 12/25/2014 Recorded influenza virus vaccine, inactivated 12/26/2013 Recorded influenza virus vaccine, inactivated 12/24/2012 Recorded influenza, whole 02/13/2012 Recorded hepa (more content not included)... Normal [facility] Comment on above: Result Comment: Elec tronically Signed By: EASTON DELAROSA PA-C\.br\Date and Time Signed: 08/08/24 13:33 EDT Ambulatory Visit Summaryon 1 03-19-2023 Ambulatory Visit [...] during bowel movements Refills: 3 Pickup at [facility] Unchanged bifidobacterium infantis (Align 4 [...] Pharmacy Information [facility]: [address], [place] [phone] Allergies amoxicillin (Unknown) penicillins Problems Ongoing - [...] choosing us for your care. Aleja Mason [facility] Gastroenterology Office/Clin ic Noteon 01-18-2024 Gastroenterology Office/Clinic [...] (Z80.0: Fam (more content not included)... Normal [facility] Comment on above: Result Comment: Elec tronically Signed By: Jt LAST, Vianca Olguin.br\Date and Time Signed: 01/18/24 09:25 EST Reminderson 01-16-2024 Reminders Reminders From: Destiny Stallings To: [facility] - Reminders/Recalls; Sent: 01/16/2024 15:40:53 EST Show up: 12/02/2028 15:39:00 EDT Subject: Ambulatory Reminder- colonoscopy 5 year recall Due Date/Time: 01/01/2029 15:38:00 EDT Reminder/Recall Colonoscopy Dr Waters- 01/02/24 5 year recall due too family history. Normal [facility] Reminders Reminders From: Destiny Stallings To: [facility] - Reminders/Recalls; Sent: 01/15/2024 13:05:33 EST Show up: 01/14/2034 13:05:00 EST Subject: Ambulatory Reminder- 10 year colonoscopy Due Date/Time: 01/14/2034 13:05:00 EST Reminder/Recall Colonoscopy Dr Waters-01/01/24 10 years Normal [facility] Comment on above: Other Comment: Famil y history of rectal cancer. Changing to 5 year recall. Surgical Pathology Reporton 01-03-2024 Surgical Pathology Report [facility] [address] [place] [address]- Surgical Pathology Report Collected Date/Time: 01/01/2024 11:09 EDT Pathologist: Jewel LAST PhD, Michael Limon Received Date/Time: 01/01/2024 13:38 EDT Jt LAST, Vianca Waters MD, Vianca Burris Surgical Pathology Report - 01/03/2024 [...] is entirely submitted in one cassette. (DC) DC:[facility] Microscopic Description Microscopic examination performed unless gross only specified. Normal [facility] Comment on above: Performed By: #### [id number] #### [facility] [address] [place] [address] Main OR Intraoperative Recor don 01-02-2024 Main OR Intraoperative Record Main OR Intraoperative Record IntraOp Document Type FT Summary Primary Physician: Vianca Waters MD Finalized Date/Time: 01/02/24 14:49:43 Pt. Name: ZIONSALOMEO.B./Sex: 1985 Male Med Rec #: [id number] Physician: Vianca Waters MD Financial #: [id number] Pt. Type: O Room/Bed: / Admit/Disch: 01/01/24 10:02:07 - 01/01/24 23:59:59 Institution: Case Times FT Entry 1 Patient Times In Room 01/01/24 10:59:00 Out Room 01/01/24 11:16:00 Procedure Times Start 01/01/24 11:03:00 Stop 01/01/24 11:13:00 Anesthesia Times Start 01/01/24 10:59:00 Stop 01/01/24 11:16:00 Time at [facility] 01/01/24 11:05:00 Last Modified By: Angela Hanson RN 01/01/24 11:15:46 General Comments: 01/02/24 Chart opened to review and send charges [facility]oth CSFA Case Attendance FT Entry 1 Entry 2 Entry 3 Case Attendee Debbi RUBY, Beverly Hanson RN, Monique Degroot Role Performed WILDLIFE CONSERVATION PROFESSOR Feed Blender - Primary Scrub - Primary Time In 01/01/24 10:59:00 01/01/24 10:59:00 01/01/24 10:59:00 Time Out 01/01/24 11:16:00 01/01/24 11:16:00 01/01/24 11:16:00 Procedure COLONOSCOPY(.) COLONOSCOPY(.) COLONOSCOPY(.) Comments Dr. Fuller supervising Last Modified By: Margie MURCIA, Angela Hanson RN, Angela Leal RN 01/01/24 11:15:47 01/01/24 11:15:47 01/01/24 11:15:47 Entry 4 Entry 5 Case Attendee Verena Mora MD, Vianca Silva Role Performed Staff - Other Surgeon - Primary Time In 01/01/24 10:59:00 01/01/24 10:59:00 Time Out 01/01/24 11:16:00 01/01/24 11:16:00 Procedure COLONOSCOPY(.) COLONOSCOPY(.) Comments help in room Last Modified By: Margie MURCIA, Angela Leal RN 01/01/24 11:15:47 01/01/24 11:15:47 Perioperative Protocols FT [...] Time Out Beverly Werner CRNA, Given Participants Angela Hanson RN, Miles, Kirstyn K, Sparks, Micala E, Mouchli MD, Vianca Silva Time [...] colon biopsy Primary Procedure Yes Primary Surgeon Vianca Waters MD Start 01/01/24 11:03:00 Stop 01/01/24 11:13:00 Anesthesia [...] and tissue Entry 1 Skin Integrity Intact, [place], Warm, & Skin Abnormality No Dry Outcomes [...] Procedure COLONOSCOPY(. (more content not included)... Normal [facility] Discharge Instructionson Discharge Instructions Discharge Instructions SALOME [...] Follow-Up Appointments Sunday 8:45 AM EST With: Jt LAST, Vianca Silva Where: [facility] [address] [place], [place] [id number]- Medications What How Much When Instructions Next [...] these instructions at home: Medicines ? Take [id number] and prescription medicines only as told by [...] If told (more content not included)... Normal [facility] Comment on above: Result Comment: Elec tronically Signed By: Sara Simmons I\.br\Date and Time Signed: 01/01/24 11:23 EDT H&P Updateon 01-01-2024 H&P Update H&P Update Patient: SALOME DONOVAN Age: 38 years Sex: Male : 1985 Associated Diagnoses: None Author: Vianca aWters MD Preoperative Information Chief compliant/Indication for procedure: Diarrhea Chief Complaint as above Review of Systems All systems reviewed, negative except as mentioned above Physical Examination Vital Signs (last 24 hrs) Last Charted Temp Temporal 36.6 DegC (DEC 31 10:30) Heart Rate Monitored 67 bpm (DEC 31:30) Resp Rate 17 br/min (DEC 31:30) SBP 121 mmHg (DEC 31:30) DBP 74 mmHg (DEC 31 10:30) Weight 115.8 kg (DEC 31 09:28) General: in Nad Abdomen: Soft, NTND Impression and Plan Diagnosis: Diarrhea - colonoscopy Normal [facility] Main OR PACU II Recordon Main OR PACU II Record Main OR PACU II Record PACU Phase II Document Type FT Summary Primary Physician: Vianca Waters MD Finalized Date/Time: 01/01/24 11:50:23 Pt. Name: SALOME DONOVAN /Sex: 1985 Male Med Rec #: [id number] Physician: Vianca Waters MD Financial #: [id number] Pt. Type: O Room/Bed: / Admit/Disch: 01/01/24 [...] 01/01/24 11:49 Sara Simmons I 01/01/24 11:50 [facility] Main OR Preoperative Recordo n 01-01-2024 Main OR Preoperative Record Main OR Preoperative Record Holding Area Document Type FT Summary Primary Physician: Vianca Waters MD Finalized Date/Time: 01/01/24 10:24:49 Pt. Name: DONOVANSALOME/Sex: 1985 Male Med Rec #: [id number] Physician: Vianca Waters MD Financial #: [id number] Pt. Type: O Room/Bed: / Admit/Disch: 01/01/24 [...] By: Staci Sandy RN 01/01/24 10:24 Normal [facility] Operative Reporton Operative Report Operative Report Patient: SALOME DONOVAN Age: 38 years Sex: Male : 1985 Associated Diagnoses: None Author: Vianca Waters MD Pre-Procedure Procedure Date 01/01/2024 11:15:00 . Procedure Type: Colonoscopy with biopsy. Procedure provider Performed by Vianca Waters MD. Current history and physical Documented on chart. Colonoscopy ([id number]). EGD (esophagogastroduoden oscopic) electrohydraulic lithotripsy of bezoar in stomach ([id number]).. Past Medical History Active Upper abdominal pain ([id number]). Family History Alcoholism Father Brother Rectal cancer Father . Procedure History Colonoscopy ([id number]). EGD (esophagogastroduoden oscopic) electrohydraulic lithotripsy of bezoar in stomach ([id number]).. Colorectal neoplasm risk assessment Average risk. Informed [...] course, # 28 cap(s), Refills(s) 0, Pharmacy: [facility], 180, cm, 12/30/19 8:59:00 EDT, Height/Length Dosing, 112, kg, 12/30/19 8:59:00 EDT, Weight Dosing Metamucil 525 mg oral capsule: 1,050 mg = 2 cap(s), Oral, Daily, Take 2 hour apart from the other medications with at least 8 ounces of water, # 160 cap(s), Refills(s) 1, Pharmacy: [facility], 180, cm, 12/30/19 8:59:00 EDT, Height/Length Dosing, 112, kg, 12/30/19 8:59:0... Protonix 40 mg Tab-EC: 40 mg = 1 tab(s), Oral, BID, Take 30 minutes before meals, # 120 tab(s), Refills(s) 11, Pharmacy: [facility], 180, cm, 12/30/19 8:59:00 EDT, Height/Length Dosing, 112, kg, 12/30/19 8:59:00 EDT, Weight Dosing Questran 4 g/9 g oral powder: = 1 packet(s), Oral, BID, # 60 EA, Refills(s) 2, Pharmacy: [facility], 180, cm, 12/19/23 14:34:00 EDT, Height/Length [...] 3. Normal Terminal ileum Images Procedure images: Rec_hd_video_2023_ __[id number].jpg Rec_hd_video___[id number].jpg Rec_hd_video_ ___[id number].jpg Rec_hd_video_2023_ ___[id number].jpg Rec1_hd_video___[id number].jpg Rec1_hd_video_ ___30_980.jpg . Post-Procedure Complications: none. Estimated blood loss: [...] hours. Education and Follow-up: Counseled: Patient, Family. [facility] Comment on above: Result Comment: Elec tronically Signed By: Jt LAST, Vianca Silva\.br\Date and Time Signed: 01/01/24 11:16 EDT Other Comment: Glenis ellsworth Attachment - attachment storage system not supported [id number] Can be viewed in source systemMissing Attachment - attachment storage system not supported [id number] Can be viewed in source systemMissing Attachment - attachment storage system not supported [id number] Can be viewed in source systemMissing Attachment - attachment storage system not supported [id number] Can be viewed in source systemMissing Attachment - attachment storage system not supported [id number] Can be viewed in source systemMissZtail Attachment - attachment storage system not supported [id number] Can be viewed in source system Ambulatory [...] Follow-Up Appointments Sunday 8:45 AM EST With: Jt LAST, Vianca Silva Where: [facility] [address] [address]- Medications What How Much When Instructions New cholestyramine (Questran 4 g/ 9 g oral powder) 1 Packets By Mouth 2 times a day Refills: 2 Pickup at [facility] Unchanged bifidobacterium infantis (Align 4 [...] Pharmacy Information [facility]: [address], [place] [phone] Allergies amoxicillin (Unknown) penicillins Problems Ongoing - [...] choosing us for your care. Aleja Mason [facility] Gastroenterology Office/Clin ic Noteon 12-19-2023 Gastroenterology [...] decreasing Protonix to QD CT 12/07/23 @ [facility]: IMPRESSION: 1. No acute abdominal or pelvic [...] IMPRESSION: NORMAL GASTRIC EMPTYING. Labs 05/25/23 @ [facility]: BUN 19.0 (H) ALT 89 (H) CBC [...] Father. Im (more content not included)... Normal [facility] Comment on above: Result Comment: Elec tronically Signed By: Jt LAST, Vianca Silva\.br\Date and Time Signed: 12/19/23 14:45 EDT Provider Letteron 12-19-2023 Provider Letter Provider Letter December 19, 2023 SALOME DONOVAN [address] [place] [id number] : 1985 To Whom It May Concern, Please excuse above patient from work. On 12/19/2023 for being seen n our office today. Date of Illness:12/19/2023 From: _ To: _12/19/2023 May Return to Work On:12/20/2023 Sincerely, [facility] [phone] [facility] XR CHEST 1 Von 02-07-2022 XR CHEST [...] by: TORIN DUNN Date: 2022-02-07 09:27 Normal [facility] XR TSPINE 2 VIEWSon 05-19-19 [...] by: KARLA TEJEDA Date: 2021-05-18 19:43 Normal [facility] Vital Signs Date Time Vital Sign Value Performing Clinician Facility 01-18-2024 09:02-0500 Blood Pressure Location Capicalolivia Waters [facility] 01-18-2024 09:02-0500 Diastolic blood pressure 83 mm[Hg] Vainca Waters [facility] 01-18-2024 09:02-0500 Heart rate 67 /min Vianca Waters [facility] 01-18-2024 09:02-0500 Systolic blood pressure 121 mm[Hg] Heydid Jt [facility] 01-01-2024 11:33-0400 Diastolic blood pressure 75 mm[Hg] Vianca Waters [facility] 01-01-2024 11:33-0400 Heart rate 80 /min Vianca Waters [facility] 01-01-2024 11:33-0400 Mean blood pressure 85 mm[Hg] Mohamad Mouchli [facility] 01-01-2024 11:33-0400 Respiratory rate 19 /min Mohamad Mouchli [facility] 01-01-2024 11:33-0400 SaO2% (BldA) [Mass fraction] 97 % Mohamad Mouchli [facility] 01-01-2024 11:33-0400 Systolic blood pressure 106 mm[Hg] Mohamad Mouchli [facility] 01-01-2024 11:25-0400 Diastolic blood pressure 63 mm[Hg] Mohamad Mouchli [facility] 01-01-2024 11:25-0400 Heart rate 75 /min Mohamad Mouchli [facility] 01-01-2024 11:25-0400 Mean blood pressure 73 mm[Hg] Mohamad Mouchli [facility] 01-01-2024 11:25-0400 Respiratory rate 18 /min Mohamad Mouchli [facility] 01-01-2024 11:25-0400 SaO2% (BldA) [Mass fraction] 94 % Mohamad Mouchli [facility] 01-01-2024 11:25-0400 Systolic blood pressure 92 mm[Hg] Mohamad Mouchli [facility] 01-01-2024 11:18-0400 Body temperature 98.06 [degF] Mohamad Mouchli [facility] 01-01-2024 11:18-0400 Diastolic blood pressure 69 mm[Hg] Mohamad Mouchli [facility] 01-01-2024 11:18-0400 Heart rate 77 /min Mohamad Mouchli [facility] 01-01-2024 11:18-0400 Mean blood pressure 82 mm[Hg] Mohamad Mouchli [facility] 01-01-2024 11:18-0400 Respiratory rate 20 /min Mohamad Mouchli [facility] 01-01-2024 11:18-0400 SaO2% (BldA) [Mass fraction] 94 % Mohamad Mouchli [facility] 01-01-2024 11:18-0400 Systolic blood pressure 108 mm[Hg] Mohamad Mouchli [facility] 01-01-2024 11:10-0400 Respiratory rate 23 /min Mohamad Mouchli [facility] 01-01-2024 11:05-0400 Respiratory rate 25 /min Mohamad Mouchli [facility] 01-01-2024 11:00-0400 Respiratory rate 17 /min Mohamad Mouchli [facility] 01-01-2024 10:30-0400 Blood Pressure Location Mohamad Mouchli [facility] 01-01-2024 10:30-0400 Body temperature 97.88 [degF] Mohamad Mouchli [facility] 12-19-2023 14:29-0400 Blood Pressure Location Mohamad Mouchli [facility] 12-19-2023 14:29-0400 Diastolic blood pressure 78 mm[Hg] Mohamad Mouchli [facility] 12-19-2023 14:29-0400 Heart rate 66 /min Vianca Waters [facility] 12-19-2023 14:0 Systolic blood pressure 121 mm[Hg] Vianca Waters [facility] Encounters Encounter Date Encounter Type Care Provider Facility Start: 09-19-2024 ambulatory PA-C EASTON Edwards acility:[facility] Start: 08-08-2024 End: 08-08-2024 ambulatory PA-C EASTON DELAROSA Facility:[facility] Start: 08-08-2024 End: 08-08-2024 Patient encounter procedure EASTON DELAROSA [facility] Start: 08-06-2024 ambulatory PA-C EASTON DELAROSA Fac ility:[facility] Start: 01-18-2024 End: 01-18-2024 ambulatory Mohrosamariad Shira Waters Facility:[facility] Start: 01-18-2024 End: 01-18-2024 Patient encounter procedure Vianca Waters [facility] Start: 01-01-2024 End: 01-01-2024 ambulatory Vianca Waters Facility:[facility] Start: 01-01-2024 End: 01-01-2024 Patient encounter procedure Vianca Waters [facility] Start: 12-19-2023 End: 12-19-2023 ambulatory Heydid A. Jt Facility:[facility] Start: 12-19-2023 End: 12-19-2023 Patient encounter procedure Heydid Shira Waters [facility] Start: 02-07-2022 End: 02-07-[address] LEWIS BHAGAT Facility:[facility] Start: 05-18-2021 End: 05-18-2021 ambulatory ELAYNE ALVARADO Facility:[facility] Procedures Date Procedure Procedure Detail Performing Clinician Start: 01-01-2024 Colonoscopy Mohamad Mouchli Colonoscopy Mohamad Mouchli Esophagogastroduoden oscopic electrohydraulic lithotripsy of bezoar in stomach Mohamad Mouchli Tonsillectomy and adenoidectomy EASTON DELAROSA Immunizations Immunization Date Immunization Notes Care Provider Jo Ann aslhey 12-25-2014 influenza, whole Mohamad Delmis chli [facility] 12-26-2013 influenza virus vaccine, unspecified formulation Mohamad Mouchli [facility] 12-24-2012 influenza virus vaccine, unspecified formulation Mohamad Mouchli [facility] 02-13-2012 influenza, whole Mohamad Delmis chli [facility] 08-25-2002 hepatitis B vaccine, pediatric or pediatric/adolescent dosage Mohamad Mouchli [facility] 02-21-2002 hepatitis B vaccine, pediatric or pediatric/adolescent dosage Mohamad Mouchli [facility] 01-17-2002 hepatitis B vaccine, pediatric or pediatric/adolescent dosage Mohamad Mouchli [facility] 08-29-2000 Td(adult) unspecifie d formulation Mohamad Mouchli [facility] 04-28-1997 measles, mumps and rubella virus vaccine Mohamad Mouchli [facility] 03-10-1987 Hib, unspecified formulation Vianca Waters [facility] 09-29-1986 measles, mumps and rubella virus vaccine Vianca Waters [facility] Payers Date Payer Category Payer Unknown [id number] 2023 Unknown [id number] 1985 Unknown [id number] 2.16.84 [id number] 1985 Unknown [id number] 2.16.84 [id number] 1985 Unknown [id number] 2.16.8 [id number] 1985 Unknown [id number] 2.16.8 [id number] 1985 Unknown [id number] 2.16.8 [id number] 1985 Unknown [id number] 2.16.8 [id number] 1985 Unknown [id number] 2.16.8 [id number] 1959 Unknown [id number] 1959 Unknown [id number] Private Health Insurance [id number] Social History Date Type Detail Facility Start: 12-19-2023 Tobacco smoking status Smoker (findi ng) [facility] Start: 01-18-2024 End: 08-08-2024 Tobacco smoking status Ex-smoker (finding) [facility] Tobacco smoking status Never [facility] Sex Assigned At Male [facility] Sexual Orientation [facility] Start: 02-17-2014 Sex Male (finding) [facility] Functional Status Date Assessment Result Facility 01-18-2024 Functional Status N/A [facility] 01-01-2024 Functional Status N/A [facility] 12-19-2023 Functional Status N/A [facility] Clinical Notes 01-01-2024 to 08-08-2024 Note Date & Type Note Facility 08-08-2024 Hospital Discharge instructions Patient Education 08/08/2024 13:32:41 Benign Prostatic Hyperplasia Benign Prostatic Hyperplasia Benign prostatic hyperplasia (BPH) is an enlarged prostate gland that is caused by the normal aging process. The prostate may get bigger as a man gets older. The condition is not caused by cancer. The prostate is a walnut-sized gland that is involved in the production of semen. It is located in front of the rectum and below the bladder. The bladder stores urine. The urethra carries stored urine out of the body. An enlarged prostate can press on the urethra. This can make it harder to pass urine. The buildup of urine in the bladder can cause infection. Back pressure and infection may progress to bladder damage and kidney (renal) failure. What are the causes? This condition is part of the normal aging process. However, not all men develop problems from this condition. If the prostate enlarges away from the urethra, urine flow will not be blocked. If it enlarges toward the urethra and compresses it, there will be problems passing urine. What increases the risk? This condition is more likely to develop in men older than 50 years. What are the signs or symptoms? Symptoms of this condition include: Getting up often during the night to urinate. Needing to urinate frequently during the day. Difficulty starting urine flow. Decrease in size and strength of your urine stream. Leaking (dribbling) after urinating. Inability to pass urine. This needs immediate treatment. Inability to completely empty your bladder. Pain when you pass urine. This is more common if there is also an infection. Urinary tract infection (UTI). How is this diagnosed? This condition is diagnosed based on your medical history, a physical exam, and your symptoms. Tests will also be done, such as: A post-void bladder scan. This measures any amount of urine that may remain in your bladder after you finish urinating. A digital rectal exam. In a rectal exam, your health care provider checks your prostate by putting a lubricated, gloved finger into your rectum to feel the back of your prostate gland. This exam detects the size of your gland and any abnormal lumps or growths. An exam of your urine (urinalysis). A prostate specific antigen (PSA) screening. This is a blood test used to screen for prostate cancer. An ultrasound. This test uses sound waves to electronically produce a picture of your prostate gland. Your health care provider may refer you to a specialist in kidney and prostate diseases (urologist). How is this treated? Once symptoms begin, your health care provider will monitor your condition (active surveillance or watchful waiting). Treatment for this condition will depend on the severity of your condition. Treatment may include: Observation and yearly exams. This may be the only treatment needed if your condition and symptoms are mild. Medicines to relieve your symptoms, including: ?Medicines to shrink the prostate. ?Medicines to relax the muscle of the prostate. Surgery in severe cases. Surgery may include: ?Prostatectomy. In this procedure, the prostate tissue is removed completely through an open incision or with a laparoscope or robotics. ?Transurethral resection of the prostate (TURP). In this procedure, a tool is inserted through the opening at the tip of the penis (urethra). It is used to cut away tissue of the inner core of the prostate. The pieces are removed through the same opening of the penis. This removes the blockage. ?Transurethral incision (TUIP). In this procedure, small cuts are made in the prostate. This lessens the prostate's pressure on the urethra. ?Transurethral microwave thermotherapy (TUMT). This procedure uses microwaves to create heat. The heat destroys and removes a small amount of prostate tissue. ?Transurethral needle ablation (TUNA). This procedure uses radio frequencies to destroy and remove a small amount of prostate tissue. ?Interstitial laser coagulation (ILC). This procedure uses a laser to destroy and remove a small amount of prostate tissue. ?Transurethral electrovaporization (TUVP). This procedure uses electrodes to destroy and remove a small amount of prostate tissue. ?Prostatic urethral lift. This procedure inserts an implant to push the lobes of the prostate away from the urethra. Follow these instructions at home: Take zvfs-dig-tdnsphr and prescription medicines only as told by your health care provider. Monitor your symptoms for any changes. Contact your health care provider with any changes. Avoid drinking large amounts of liquid before going to bed or out in public. Avoid or reduce how much caffeine or alcohol you drink. Give yourself time when you urinate. Keep all follow-up visits. This is important. Contact a health care provider if: You have unexplained back pain. Your symptoms do not get better with treatment. You develop side effects from the medicine you are taking. Your urine becomes very dark or has a bad smell. Your lower abdomen becomes distended and you have trouble passing urine. Get help right away if: You have a fever or chills. You suddenly cannot urinate. You feel light-headed or very dizzy, or you faint. There are large amounts of blood or clots in your urine. Your urinary problems become hard to manage. You develop moderate to severe low back or flank pain. The flank is the side of your body between the ribs and the hip. These symptoms may be an emergency. Get help right away. Call 911. Do not wait to see if the symptoms will go away. Do not drive yourself to the hospital. Summary Benign prostatic hyperplasia (BPH) is an enlarged prostate that is caused by the normal aging process. It is not caused by cancer. An enlarged prostate can press on the urethra. This can make it hard to pass urine. This condition is more likely to develop in men older than 50 years. Get help right away if you suddenly cannot urinate. This information is not intended to replace advice given to you by your health care provider. Make sure you discuss any questions you have with your health care provider. Document Revised: 09/14/2021 Document Reviewed: 09/14/2021 [employer] Patient Education 2023 [employer]out. Follow Up Care 08/07/2024 09:13:16 With:EASTON DELAROSA PA-C, URL Address: [address] [place] [address] Business (1) When:6 weeks [facility] 08[facility]08-[facility]24 Note Patient Education Urology Benign Prostatic Hyperplasia Benign prostatic hyperplasia (BPH) is an enlarged prostate gland that is caused by the normal aging process. The prostate may get bigger as a man gets older. The condition is not caused by cancer. The prostate is a walnut-sized gland that is involved in the production of semen. It is located in front of the rectum and below the bladder. The bladder stores urine. The urethra carries stored urine out of the body. An enlarged prostate can press on the urethra. This can make it harder to pass urine. The buildup of urine in the bladder can cause infection. Back pressure and infection may progress to bladder damage and kidney (renal) failure. What are the causes? This condition is part of the normal aging process. However, not all men develop problems from this condition. If the prostate enlarges away from the urethra, urine flow will not be blocked. If it enlarges toward the urethra and compresses it, there will be problems passing urine. What increases the risk? This condition is more likely to develop in men older than 50 years. What are the signs or symptoms? Symptoms of this condition include: ??? Getting up often during the night to urinate. ??? Needing to urinate frequently during the day. ??? Difficulty starting urine flow. ??? Decrease in size and strength of your urine stream. ??? Leaking (dribbling) after urinating. ??? Inability to pass urine. This needs immediate treatment. ??? Inability to completely empty your bladder. ??? Pain when you pass urine. This is more common if there is also an infection. ??? Urinary tract infection (UTI). How is this diagnosed? This condition is diagnosed based on your medical history, a physical exam, and your symptoms. Tests will also be done, such as: ??? A post-void bladder scan. This measures any amount of urine that may remain in your bladder after you finish urinating. ??? A digital rectal exam. In a rectal exam, your health care provider checks your prostate by putting a lubricated, gloved finger into your rectum to feel the back of your prostate gland. This exam detects the size of your gland and any abnormal lumps or growths. ??? An exam of your urine (urinalysis). ??? A prostate specific antigen (PSA) screening. This is a blood test used to screen for prostate cancer. ??? An ultrasound. This test uses sound waves to electronically produce a picture of your prostate gland. Your health care provider may refer you to a specialist in kidney and prostate diseases (urologist). How is this treated? Once symptoms begin, your health care provider will monitor your condition (active surveillance or watchful waiting). Treatment for this condition will depend on the severity of your condition. Treatment may include: ??? Observation and yearly exams. This may be the only treatment needed if your condition and symptoms are mild. ??? Medicines to relieve your symptoms, including: ? Medicines to shrink the prostate. ? Medicines to relax the muscle of the prostate. ??? Surgery in severe cases. Surgery may include: ? Prostatectomy. In this procedure, the prostate tissue is removed completely through an open incision or with a laparoscope or robotics. ? Transurethral resection of the prostate (TURP). In this procedure, a tool is inserted through the opening at the tip of the penis (urethra). It is used to cut away tissue of the inner core of the prostate. The pieces are removed through the same opening of the penis. This removes the blockage. ? Transurethral incision (TUIP). In this procedure, small cuts are made in the prostate. This lessens the prostate's pressure on the urethra. ? Transurethral microwave thermotherapy (TUMT). This procedure uses microwaves to create heat. The heat destroys and removes a small amount of prostate tissue. ? Transurethral needle ablation (TUNA). This procedure uses radio frequencies to destroy and remove a small amount of prostate tissue. ? Interstitial laser coagulation (ILC). This procedure uses a laser to destroy and remove a small amount of prostate tissue. ? Transurethral electrovaporization (TUVP). This procedure uses electrodes to destroy and remove a small amount of prostate tissue. ? Prostatic urethral lift. This procedure inserts an implant to push the lobes of the prostate away from the urethra. Follow these instructions at home: ??? Take fxuv-gvk-vpuvyji and prescription medicines only as told by your health care provider. ??? Monitor your symptoms for any changes. Contact your health care provider with any changes. ??? Avoid drinking large amounts of liquid before going to bed or out in public. ??? Avoid or reduce how much caffeine or alcohol you drink. ??? Give yourself time when you urinate. ??? Keep all follow-up visits. This is important. Contact a health care provider if: ??? You have unexplained back pain. ??? Your symptoms do not get (more content not included)... [facility] 01-03-2024 Note Progress Note-Eliecer crenshaw Patient: SALOME DONOVAN Age: 38 years Sex: [...] list: All Problems Vomiting / SNOMED CT 3163019654 / Confirmed Upper abdominal pain / SNOMED CT 330593429 / Confirmed Smoker.. / SNOMED CT [id number] / Confirmed Added secondary to documentation in Social History. Irritable bowel syndrome / SNOMED CT 94691004 / Confirmed History of colon polyps / SNOMED CT 8681740295 / Confirmed GERD with esophagitis / SNOMED CT 615903055 / Confirmed Abdominal cramping / SNOMED CT 758403434 / Confirmed Family history of rectal cancer / SNOMED CT 1884061320 / Confirmed Diarrhea / SNOMED CT 741752709 / Confirmed Gas pain / SNOMED CT 944069511 / Confirmed Bloating / SNOMED CT 247638175 / Confirmed Histories Procedure history: Colonoscopy (337013693). EGD (esophagogastroduodenoscopic) electrohydraulic lithotripsy of bezoar in stomach ([id number]). Social History Social & Psychosocial Habits Alcohol [...] adequate air exchange. Cardiovascular: Regular rhythm. Plan [place] [employer] Anesthesiologists (ASA) physical status classification: Class II. Anesthetic Preoperative Plan: Anesthesia General. [facility] Comment on above: Result Comment: Elec tronically Signed By: Chilo Fuller Jr, DO\.br\Date and Time Signed: 01/03/24 07:28 EDT 01-03-2024 Note Progress Note-Physic flower Patient: SALOME [...] when meets criteria ( To home ). [facility] Comment on above: Result Comment: Elec tronically Signed By: Chilo Fuller Jr, DO.mary\Date and Time Signed: 01/03/24 07:27 EDT 01-01-2024 Hospital Discharge instructions Patient Education 01/01/2024 11:23:18 Hemorrhoids, Vrqo-fm-Vdyw Hemorrhoids Hemorrhoids are swollen veins that may [...] Follow these instructions at home: Medicines Take vysp-rqc-vblhquc and prescription medicines only as told by [...] provider. Document Revised: 11/08/2022 Document Reviewed: 11/08/2022 [employer] Patient Education 2023 [employer] 01/01/2024 11:23:16 Diverticulosis MAGR (CUSTOM) Diverticulosis Many [...] unsweetened, w/added ascorbic acid 1 cup 0.5 [place] 1 cup 0.7 Vegetables Cooked Green beans 1 cup 4.0 Carrots 1/2 cup sliced 2.3 Peas 1 cup 8.8 Potato (baked, with skin) 1 medium potato 3.8 Raw [place] (with peel) 1 cucumber 1.5 Lettuce 1 [...] 8.7 Peanuts 1/2 cup 7.9 Chart from [facility] 2013. SEEK IMMEDIATE MEDICAL CARE IF: You [...] of Agriculture (USDA) National Nutrient Database at: http://www.nal.usda.gov/fnic/foodc omp/search/ Created using data from the USDA National Nutrient Database for Standard Reference. Available at http://www.SkemA.usda.gov/fnic/foodc omp/search/. Information adapted from: [facility] Patient Information 2009 [employer]. [facility] 2012 http://www.Joules Clothing/contents/d nvzshilylde-hkbdisu-eyfzaj-the-bas [facility] [place] 01/01/2024 11:23:13 Colonoscopy, Care After Surgery Salam [...] severe or gets worse throughout the day. [facility] 01-01-2024 Note Patient Education - Text Diverticulosis [...] unsweetened, w/added ascorbic acid 1 cup 0.5 [place] 1 cup 0.7 Vegetables Cooked Green beans 1 cup 4.0 Carrots 1/2 cup sliced 2.3 Peas 1 cup 8.8 Potato (baked, with skin) 1 medium potato 3.8 Raw [place] (with peel) 1 cucumber 1.5 Lettuce 1 [...] 8.7 Peanuts 1/2 cup 7.9 Chart from [facility] 2013. SEEK IMMEDIATE MEDICAL CARE IF: You [...] of Agriculture (USDA) National Nutrient Database at: http://www.SkemA.usda.gov/fnic/foodc omp/search/ Created using data from the USDA National Nutrient Database for Standard Reference. Available at http://www.SkemA.SidelineSwap.gov/RingDNAic/TIDAL PETROLEUMc omp/search/. Information adapted from: [facility]? Patient Information ?2009 [employer]. [employer] 2012 http://www.Joules Clothing/contents/d hnvyyvzyelf-uulzpsa-yujvqp-the-bas ics Colonoscopy Care After Surgery Please read the [...] doctor. Begin wit (more content not included)... [facility] Evaluation + Plan note Future Appointments Appointment Date:01/01/2024 11:00:00 AM Scheduled Provider: Location:[facility] Appointment Type:Surgery FT Appointment Date:01/18/2024 08:45:00 AM Scheduled Provider:Vianca Waters MD Location[facility] Appointment Type:BADH Follow Up [facility] Evaluation + Plan note Future Appointments Appointment Date:01/18/2024 08:45:00 AM Scheduled Provider:Vianca Waters MD Location[facility] Appointment Type:BADH Follow Up [facility] Evaluation + Plan note Future Appointments Appointment Date:09/19/2024 08:20:00 AM Scheduled Provider:EASTON DELAROSA PA-C Location:[facility] Appointment Type:URO Office Visit [facility] Hospital course Narrative No data available for this section [facility] Hospital Discharge instructions No data available for this section [facility] Progress note No data available for this section [facility] Summary Purpose Family History No Family History Records Found No data available for this section No data available for this section No Family History Records Found No data available for this section No Family History Records Found No data [...] and content) DATE CREATED AUTHOR 02/18/2022 [facility] DATE CREATED AUTHOR AUTHOR'S ORGANIZ ATION 01/05/2024 [facility] DATE CREATED AUTHOR AUTHOR'S ORGANIZ ATION 06/14/2024 [facility] DATE CREATED AUTHOR AUTHOR'S ORGANIZ ATION 08/09/2024 [facility] Patient Care team informatio n (unrecognized section and content) Personnel Name: YOEL CASTREJON CNP Address: Address: [address], [address] Personnel Name: YOEL CASTREJON CNP Address: Address: [address], [address] Personnel Name: YOEL CASTREJON CNP Address: Address: [address], [address] Personnel Name: YOEL CASTREJON CNP Address: [address] [employer]: FOR RECORDS PERTAINING TO PATIENTS WHO ARE [...] BE BASED ON THE PRIMARY CLINICAL RECORDS. [facility]. provides no warranty or guarantee of the accuracy or completeness of information in this document.
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
--- OUTSIDE RECORDS SUMMARY | 2024-08-09 13:51 | XMS_ITS | Patient Health Record ---
Author Organization [facility] [place] Address [address] [place] [address] Care Team Providers Care Circle Shear Operator Name Role Phone Elda Rao Primary Care Provider Allergies Allergen (clinical drug ingredient) Drug/Non Drug Allergy documented on EMR Reaction Allergy Type Onset Date Status Penicillin hives Drug Allergy Active Results Component Value Reference Range Notes CT abdomen pelvis w con Reviewed date:12/07/2023 10:19:43 AM Interpretation: Performing Lab: Notes/Report: Source Facility: [place] [address] CT Scan Report Signed Patient: ANTOINE GARCIA MR#: [id number] : 1985 Acct:[id number] Age/Sex: 38 / M ADM Date: 12/07/23 Loc: CT Attending Dr: ELDA RAO Ordering Physician: ELDA RAO Date of Service: 12/07/23 Procedure(s): CT abdomen pelvis w con Accession Number(s): [id number] cc: ELDA RAO [address] [address] Patient Name: ANTOINE GARCIA MRN: [id number] date: 1985 Sex: M Assigned Patient Location: CT Current Patient Location: CT Accession/Order Number: [id number] Exam Date: 12/07/2023 08:30 Report Date: 12/07/2023 [...] M.D. Signed By: 12/07/23921 DD/ 9 TD/TT: Stave Hewer: [place] [address] CT Scan Report Signed Patient: ANTOINE GARCIA MR#: [id number] : 1985 Acct:[id number] Age/Sex: 38 / M ADM Date: 12/07/23 Loc: CT Attending Dr: ELDA RAO Ordering Physician: ELDA RAO Date of Service: 12/07/23 Procedure(s): CT abd omen pelvis w con Accession Number(s): [id number] cc: ELDA RAO [place] [id number] Patient Name: ANTOINE GARCIA MRN: [id number] date: 1985 Sex: M Assigned Patient Location: CT Current Patient Loca tion: CT Accession/Order Numb er: [id number] Exam Date: 12/07/2023 08:30 Report Date: 12/07/2023 09:20 At the request of: ELDA RAO Procedure: CT abdome n pelvis w con EXAM: CT abdomen pel vis w con HISTORY: Abdominal P ain R10.9 COMPARISON: None. TECHNIQUE: Following intravenous administration [...] pancreas, and adrenal glands are unremarkable. Splenic calcificatio [...] M.D. Signed By: 12/07/23921 DD/ 9 TD/TT: Stave Hewer: JOSE (CLEAN or CATCH) PODIATRIC PHYSICIAN or M ICRO IF IND. Reviewed date:07/31/2024 02:10:44 PM Interpretation: Performing Lab: Notes/Report: [facility] , Color Urine LT. YELLOW YELLOW Clarity Urine CLEAR CLEAR Specific [place] Urine >=1.030 1.005-1.025 pH Urine 6.0 5.0-9.0 Protein Urine NEGATIVE NEG/TRACE mg/dL Glucose Urine UA NEGATIVE NEGATIVE mg/dL Bilirubin Urine NEGATIVE NEGATIVE Ketones Urine NEGATIVE NEGATIVE mg/dL Blood Urine NEGATIVE NEGATIVE Nitrite Urine NEGATIVE NEGATIVE Urobilinogen Urine 0.2 0.2-1.0 EU/dL Leukocyte Esterase Urine NEGATIVE NEGATIVE Urine Microscopic Indicated NO Performing Lab: see note ML - [facility] Reason For Referral Diagnosis 1 Abdominal pain (R10. 9) Referral Organization [facility] Referring Provider First Name Elda Referring Provider Last Name Jalen [facility] Referred Provider Vianca Waters Referred Provider Specialty Gastroentero logy Referral Priority Routine Medications Medication SIG (Take, Route, Frequency, Duration) Notes Start Date End Date Status Pantoprazole Sodium 40 MG 1 tablet Orall y Once a day for 30 days 11/29/2023 Active Diclofenac Sodium 75 MG TAKE 1 TABLET BY MOUTH TWICE A DAY NEEDED FOR 30 DAYS for 30 Active Social History Tobacco Use: Social History [...] Problem Status W/U Status Risk Notes Problem GERD (gastroesopha geal reflux disease) (K21.9) Active confirmed Vital Signs Blood pressure diastolic 80 mm Hg 04/24/2024 Height 71 in 04/24/2024 Blood pressure systolic 128 mm Hg 04/24/2024 Weight 249.8 lbs 04/24/2024 BMI 34.84 kg/m2 04/24/2024 Encounters Encounter Location Date Provider Diagnosis [facility] [address] [place] [address] 11/29/2023 Elda Rao Abdominal pain R10.9 and GERD (gastroesophageal reflux disease) K21.9 [facility] [address] [place] [address] 04/24/2024 Eldaaidan Rao Tendonitis M77.9 and Left flank pain R10.9 [facility] [address] [place] [address] 12/07/2023 Elda Rao Assessments Encounter Date Diagnosis (ICD Code) Assessment Notes Treatment Notes Treatment Clinical Notes Section Notes 11/29/2023 Abdominal pain (ICD-10 - R10.9) referral to GI 04/24/2024 Tendonitis (ICD-10 - M77.9) 04/24/2024 Left flank pain (ICD-10 - R10.9) discussed imaging continue to monitor 11/29/2023 GERD (gastroesophage al reflux disease) (ICD-10 - K21.9) Plan Of Treatment No Information Insurance Providers Payer Name Payer Address Payer Phone Subscriber Number Group Number Insured Name Patient Relationship to Insured Coverage Start Date Coverage End Date O [employer] PPO [address] [address] [place] [address] [id number] Kelsy Garcia Spouse - patient is the spouse of the insured Medical (General) History Medical History History ICD Code GERD (gastroesophageal reflux disease) K 21.9
--- NOTE | 2024-08-09 13:52 | US_ITS ---
The [address] [address] Patient Name: SALOME DONOVAN MRN: [id number] date: 1985 Sex: M Assigned Patient Location: US Current Patient Location: US Accession/Order Number: [id number] Exam Date: 08/09/2024 14:49 Report Date: 08/09/2024 14:59 At the request of: EASTON TAVARES Procedure: US scrotum Scrotal ultrasound HISTORY: Left testicular pain for 3 weeks COMPARISON: None RIGHT testicle measures 5.3 x 2.1 x 2.1 cm. LEFT testicle measures 4.8 x 2.4 x 3.1 cm. No testicular mass or microcalcifications identified. Normal color flow of both testicles identified. RIGHT epididymal head measures 1.1 cm. LEFT epididymal head measures 1.0 cm. Multiple left epididymal head cyst seen with largest measuring up to 6 mm.. Left varicocele. Small right hydrocele. 5 mm thickening of scrotal wall. US/US scrotum IMPRESSION: Left varicocele. Left epididymal head cyst measuring up to 6 mm. Small right hydrocele. Normal testicles. Impression dictated by: Leonidas Palomo M.D. 08/09/2024 2:59 PM Dictation Location: [facility] Electronically authenticated by: [id number] Y Date: 08/09/2024 14:59
== END 2024-08-09 13:50 | disposition home or self-care (01) ==
LOC: US 13:49
PROVIDERS: PCP Nurse Practitioner Family; Visit Provider Physician Assistant
DX: N50.819 Testicular pain, unspecified (principal); I86.1 Scrotal varices; N50.3 Cyst of epididymis; N43.3 Hydrocele, unspecified
CPT/HCPCS: 76870

== ENCOUNTER 2025-02-18 18:44 | Emergency (ER) | payer OTHER, SELFPAY ==
[2025-02-18] VITALS (14 sets, daily range): BP systolic 86–139; BP diastolic 48–97; PULSE 87–112; TEMP 36.6–36.9; O2SAT 92–98; BMI 34.2
--- NOTE | 2025-02-18 19:06 | ED.NAVMDI1 ---
HPI - Nausea/Vomiting/Diarrhea General Chief complaint: Nausea/Vomiting/Diarrhea Stated complaint: Nausea/Vomiting/Diarrhea Time Seen by Provider: 02/18/25 19:02 Source: patient Mode of arrival: walk-in History of Present Illness HPI Narrative: 39 year old male presents to the ED for N/V/D, generalized abd pain/discomfort. Onset was this afternoon. Denies fever, chills, cough, congestion, urinary symptoms. Reports hx GERD; he takes Protonix. Denies ill contacts. Related Data Home Medications ?Medication ?Instructions ?Recorded ?Confirmed pantoprazole 40 mg tablet,delayed 40 mg PO DAILY 07/30/24 02/18/25 release tamsulosin 0.4 mg capsule 0.4 mg PO DAILY 02/18/25 02/18/25 Previous Rx's ?Medication ?Instructions ?Recorded ondansetron 4 mg disintegrating 4 mg PO Q8H PRN nausea and 02/18/25 tablet vomiting #12 tabs Allergies Allergy/AdvReac Type Severity Reaction Status Date / Time Penicillins Allergy Severe Hives Verified 02/18/25 18:48 Review of Systems ROS Constitutional Denies: fever or chills Ears, nose, mouth, and throat Denies: throat pain Cardiovascular Denies: chest pain Respiratory Denies: shortness of breath or cough Gastrointestinal Reports: abdominal pain, nausea, vomiting and diarrhea Genitourinary Denies: painful urination, urinary frequency or blood in urine Musculoskeletal Denies: back pain Neurological Denies: headache or dizziness PFSH PFS Social History Little interest or pleasure in doing things: not at all Feeling down, depressed, or hopeless: not at all Exam Constitutional Vital Signs, click to edit/add: Last Vital Signs Temp 97.9 F 02/18/25 18:48 Pulse 112 H 02/18/25 18:48 Resp 18 02/18/25 18:48 BP 139/86 02/18/25 19:31 Pulse Ox 97 02/18/25 20:00 O2 Del Method Room Air 02/18/25 18:48 Common normals: oriented x3 General appearance: cooperative Other: Actively vomiting HENMT Common normals: moist oral mucous membranes Eye Common normals: conjunctivae normal and no scleral icterus Neck & C-Spine Common normals: supple Chest Chest: symmetrical chest wall rise Respiratory Common normals: normal respiratory effort and clear to auscultation bilaterally Effort & inspection: able to speak in complete sentences and symmetric chest movement Cardio Common normals: regular rhythm Rate: tachycardic GI Common normals: Normal to inspection, nondistended, normoactive bowel sounds present, soft to palpation and non-tender Neuro Common normals: oriented x3 and moves all extremities Sensorium/orientation: awake and alert Course Vital Signs Vital signs: Vital Signs Temperature 97.9 F 02/18/25 18:48 Pulse Rate 112 H 02/18/25 18:48 Respiratory Rate 18 02/18/25 18:48 Blood Pressure 131/97 H 02/18/25 18:48 Pulse Oximetry 95 02/18/25 18:48 Oxygen Delivery Method Room Air 02/18/25 18:48 Temperature 97.9 F 02/18/25 18:48 Pulse Rate 112 H 02/18/25 18:48 Respiratory Rate 18 02/18/25 18:48 Blood Pressure 139/86 02/18/25 19:31 Pulse Oximetry 97 02/18/25 20:00 Oxygen Delivery Method Room Air 02/18/25 18:48 MDM - Nausea/Vomiting/Diarrhea MDM Narrative Medical decision making narrative: CBC, CMP, and lipase were completed. WBC count was 14.2. The patient was given IV fluids and medication with improvement. CT scan was not indicated per the ED attending. Follow up with pcp for a recheck, further evaluation and treatment. A prescription was provided for Zofran. Return to the ED for worsening symptoms. Differential Diagnosis Differential diagnosis: Likely food poisoning, gastroenteritis and other (viral illness) Medical Records Attestation: I reviewed the patient's medical records. Lab Data Attestation: I reviewed the patient's lab results. Labs: Lab Results 02/18/25 Range/Units 19:15 WBC 14.2 H (4.0-11.0) 10^3/uL RBC 5.66 (4.70-6.10) 10^6/uL Hgb 17.5 (14.0-18.0) g/dL Hct 49.2 (42.0-54.0) % MCV 86.9 (80.0-94.0) fL MCH 30.9 (25.9-34.0) pg MCHC 35.6 H (29.9-35.2) g/dL RDW 12.3 (11.0-15.0) % Plt Count 335 (150-450) 10^3/uL MPV 9.3 L (9.5-13.5) fL Neut % (Auto) 86.1 H (43.0-75.0) % Lymph % (Auto) 6.7 L (20.5-60.0) % [place] % (Auto) 5.9 (1.7-12.0) % Eos % (Auto) 0.5 L (0.9-7.0) % Baso % (Auto) 0.4 (0.2-2.0) % Neut # (Auto) 12.2 H (1.4-6.5) 10^3/uL Lymph # (Auto) 1.0 L (1.2-3.8) 10^3/uL [place] # (Auto) 0.8 (0.3-0.8) 10^3/uL Eos # (Auto) 0.1 (0.0-0.7) 10^3/uL Baso # (Auto) 0.1 (0.0-0.1) 10^3/uL Abs Immat Gran (auto) 0.06 H (0.00-0.03) 10^3/uL Imm/Tot Granulo (auto) 0.4 (0.0-0.5) % Sodium 137 (136-145) mmol/L Potassium 3.5 (3.5-5.1) mmol/L Chloride 101 (98-107) mmol/L Carbon Dioxide 25.1 (21.0-32.0) mmol/L Anion Gap 14.4 BUN 14.0 (7.0-18.0) mg/dL Creatinine 0.94 (0.70-1.30) mg/dL Est GFR ( Amer) >60 (>=60 mL/min/1.73m^2) Est GFR (Non-Af Amer) >60 (>=60 mL/min/1.73m^2) BUN/Creatinine Ratio 14.9 Glucose 126 H (74-106) mg/dL Calcium 9.5 (8.5-10.1) mg/dL Total Bilirubin 0.9 (0.2-1.0) mg/dL AST 30 (15-37) U/L ALT 81 H (16-63) U/L Alkaline Phosphatase 69 (46-116) U/L Total Protein 8.1 (6.4-8.2) g/dL Albumin 4.4 (3.4-5.0) g/dL Globulin 3.7 g/dL Albumin/Globulin Ratio 1.2 Lipase 34.0 (16.0-77.0) U/L Discharge Plan Discharge Chief Complaint: Nausea/Vomiting/Diarrhea Clinical Impression: Nausea, vomiting, and diarrhea Patient Disposition: Home, Self-Care Time of Disposition Decision: 20:31 Condition: Good Mode of Transportation: Private Vehicle Prescriptions / Home Meds: New ondansetron 4 mg tablet,disintegrating 4 mg PO Q8H PRN (Reason: nausea and vomiting) Qty: 12 0RF No Action pantoprazole 40 mg tablet,delayed release (DR/EC) 40 mg PO DAILY tamsulosin 0.4 mg capsule 0.4 mg PO DAILY Print Language: Indonesian Instructions: Acute Nausea and Vomiting (ED), Acute Diarrhea (ED), Acute Abdominal Pain (ED) Additional Instructions: Return to the ED for worsening symptoms. Referrals: YOEL CASTREJON [Primary Care Provider, Family Practice] - 1 week
[2025-02-18 19:36] LABS: Hematocrit 49.2 % (42.0-54.0); Hemoglobin 17.5 g/dL (14.0-18.0); Immature Granulocytes Abs Auto 0.06 10^3/uL (0.00-0.03); Immature Granulocytes Pct Auto 0.4 % (0.0-0.5); Lymphocytes Absolute Auto 1.0 10^3/uL (1.2-3.8); Mean Corpuscular HGB Conc 35.6 g/dL (29.9-35.2); Mean Corpuscular Hemoglobin 30.9 pg (25.9-34.0); Mean Corpuscular Volume 86.9 fL (80.0-94.0); Platelet Count 335 10^3/uL (150-450); Red Blood Count 5.66 10^6/uL (4.70-6.10); White Blood Count 14.2 10^3/uL (4.0-11.0)
[2025-02-18] MEDS: 0.9 % SODIUM CHLORIDE 1,000 ML 999 ML IV (19:37)
[2025-02-18] MEDS: FAMOTIDINE/PF 20 MG/2 ML VIAL IV (19:37)
[2025-02-18 19:41] LABS: Alanine Aminotransferase 81 U/L (16-63); Albumin Globulin Ratio 1.2; Albumin Level 4.4 g/dL (3.4-5.0); Alkaline Phosphatase 69 U/L (46-116); Anion Gap 14.4; Aspartate Amino Transferase 30 U/L (15-37); Blood Urea Nitrogen 14.0 mg/dL (7.0-18.0); Calcium 9.5 mg/dL (8.5-10.1); Carbon Dioxide 25.1 mmol/L (21.0-32.0); Chloride 101 mmol/L (98-107); Estimated GFR (African America >60 (>=60 mL/min/1.73m^2); Estimated GFR (Non-African Ame >60 (>=60 mL/min/1.73m^2); Globulin 3.7 g/dL; Glucose 126 mg/dL (74-106); Lipase 34.0 U/L (16.0-77.0); Potassium 3.5 mmol/L (3.5-5.1); Sodium 137 mmol/L (136-145); Total Protein 8.1 g/dL (6.4-8.2)
--- NOTE | 2025-02-18 20:48 | PC.NURSE ---
i gave this patient verbal and written discharge orders along with 1 e-script and this patient voices yes to understanding these. at time of discharge this patient voices no concerns, needs and shows no signs of distress
== END 2025-02-18 20:47 | disposition home or self-care (01) ==
PROVIDERS: Nurse Practitioner Family; Emergency Provider Student in an Organized Health Care Education/Training Program; PCP Nurse Practitioner Family
DX: R11.2 Nausea with vomiting, unspecified (principal); R19.7 Diarrhea, unspecified; K21.9 Gastro-esophageal reflux disease without esophagitis; Z79.899 Other long term (current) drug therapy
CPT/HCPCS: 36415; 80053; 83690; 85025; 96361; 96374; 96375; 99284; J2405; J3490

== ENCOUNTER 2025-02-20 16:49 | Emergency (ER) | payer OTHER, SELFPAY ==
[2025-02-20 17:09] VITALS: BP 155/80; PULSE 97; TEMP 36.8; O2SAT 94; BMI 34.9
--- NOTE | 2025-02-20 19:20 | CT_ITS ---
The [address] [address] Patient Name: SALOME DONOVAN MRN: [id number] date: 1985 Sex: M Assigned Patient Location: ED.MAIN Current Patient Location: ED.MAIN Accession/Order Number: [id number] Exam Date: 02/20/2025 20:04 Report Date: 02/20/2025 20:28 At the request of: ESTRELLA BOLAND DO Procedure: CT abdomen pelvis w con CT ABDOMEN AND PELVIS WITH INTRAVENOUS CONTRAST: CLINICAL HISTORY: diarrhea COMPARISON: 12/07/2023 TECHNIQUE: Spiral images were obtained through the abdomen and pelvis following the administration of intravenous contrast. This CT exam was performed using one or more following dose reduction techniques: Automated exposure control, adjustment of the mA and/or kV according to patient size, or use of iterative reconstruction technique. FINDINGS: Lung Bases: [No focal opacity] Organs:Fatty location liver. Spleen, adrenals, kidneys, pancreas unremarkable.. Left renal hypodensities suggestive cysts. No hydronephrosis.[ GI: Scattered small and large bowel air-fluid levels may raise possibility for enterocolitis. No definite bowel wall thickening or surrounding inflammatory changes. No bowel obstruction.[Appendix unremarkable. Pelvis:[Bladder prostate unremarkable.] Peritoneum/Retroperitoneum:No free air or free fluid. Aorta normal caliber. No adenopathy.[ Abd wall/Bones:No suspicious osseous lesion.[ CT/CT abdomen pelvis w con IMPRESSION: Scattered bowel air-fluid levels may raise possibility for enterocolitis or diarrhea illness. Otherwise negative acute inflammatory process or bowel obstruction Impression dictated by: Fareed Green M.D. 02/20/2025 8:28 PM Dictation Location: [place] [address] Electronically authenticated by: [id number] Y Date: 02/20/2025 20:28
--- OUTSIDE RECORDS SUMMARY | 2025-02-20 19:50 | XMS_ITS | CCD ---
Author Organization [facility] CliniSysd Care Team Providers Care Petrophysicist Name Role Phone DR LEWIS BHAGAT Admitting Unavailable REQUEST, NONE LISTED Primary Care Unavaila bakari DUNN, DR TORIN Jackson Consulting Unavailable OLAYINKA, DR SAUCEDO Attending Unavailable OLAYINKA, DR SAUCEDO Consulting Unavailable ELAYNE ALVARADO Attending Unavailable CHAITANYA BORDEN Consulting Unavailable ELAYNE ALVARADO Admitting Unavailable REQUEST, DR JUNIOR LISTED Primary Care Unavaila KARLA Zhou Consulting Unavailable ELAD CASTREJON Primary Care Physician [phone] Vianca Waters Referring Unavailable Vianca Waters Admitting Unavailable Vianca Waters Attending Unavailable Vianca Waters Attending Unavailable Vianca Waters Attending Unavailable Shanda Sanchez Referring Unavailable Shanda Sanchez Attending Unavailable Shanda Sanchez Admitting Unavailable Leonidas DAN Attending Unavailable ELDA CASTREJON Referring Unavailable Shanda Sanchez Attending Unavailable JUDITH DELAROSA Attending Unavailable JUDITH DELAROSA Attending Unavailable Brandy Gross APRN Attending Provider [phone] Jalen OJEDA-CElda Primary Care Provider [phone] Unavailable Primary Care Provider UnavailRENNY Mccrary Attending Unavailable SUZIE CARR Attending Unavailable NATANAEL WEAVER Attending Unavailable NATANAEL WEAVER Attending Unavailable Allergies Allergy ClassificationReported Allergen(s)Allergy TypeDate of OnsetReaction(s) Facility (3 sources)Amoxicillin; Translations: [amoxicillin]Drug AllergyThe [facility] (6 sources)Penicillins; Translations: [penicillins]Drug allergy (disorder)[facility] (6 sources)Amoxicillin; Translations: [amoxicillin]Drug AllergyUnknown (qualifier value)[facility] (11 sources)Penicillin; Translations: [penicillins]Drug Ehvmlps70-52-6502Kammg [facility] (1 source)ALLERGIES NOT ON FILE; Translations: [ALLERGIES NOT ON FILE]Propensity to adverse reactions (disorder)[facility] Medications Current Medications MedicationDrug Class(es)DatesSig (Normalized)Sig (Original)acetaminophen 325 mg / HYDROcodone bitartrate 5 mg oral tablet (2 sources)Opioid AgonistStart: 88-90-7464ejur 1 tablet by mouth every six hours for painacetaminophen-hydrocodone 325 mg-5 mg oral tablet 1 tab(s), Oral, q6hr for pain, Refill(s) 0 Start Date: 08/08/24 Status: Ordered Repeat number: 1 bifidobacterium infantis 4 mg oral capsule (3 sources)Start: 16-43-2083dtxv 1 capsule by mouth once dailyAlign 4 mg oral capsule 4 mg = 1 cap(s), Oral, Daily, Take after completing the Antibiotics course,# 28 cap(s), Refills(s) 0, Pharmacy: [facility], 180, cm, 12/30/19 8:59:00 EDT, Height/Length Dosing, 112, kg, 12/30/19 8:59:00 EDT, Weight Dosing Start Date: 12/31/19 Status: Orderedcholestyramine resin 4000 mg powder for oral suspension (3 sources)Bile Acid SequestrantStart: 17-34-9654Iwpuodfb 4 g/9 g oral powder = 1 packet(s), Oral, BID, # 60 EA, Refills(s) 2, Pharmacy: [facility], 180, cm, 12/19/23 14:34:00 EDT, Height/Length Dosing, 115.8, kg, 12/19/23 14:34:00 EDT, Weight Dosing Start Date: 12/19/23 Status: Orderedciprofloxacin 500 mg oral tablet (1 source)Quinolone AntimicrobialStart: 48-38-2180rpendqqyuljva 500 mg Tab 500 mg = 1 tab(s), Refills(s) 0 Start Date: 10/29/24 Status: Ordered Repeatnumber: 1 diclofenac sodium 25 mg delayed release oral tablet (4 sources)Nonsteroidal Anti-inflammatory DrugStart: 39-71-9862fduc 1 tablet by mouth onceDiclofenac Sodium 25 mg tablet,delayed release (DR/EC) Active 25 MG PO Once December 14, 2024 12:00am Complies with drug therapyStart: 16-60-3253orby 1 tablet by mouth twice dailydiclofenac sodium 75 mg Oral EC Tab 75 mg = 1 tab(s), Oral, BID, # 180 tab(s), Refills(s) 0 Start Date: 08/08/24 Status: Ordered Quantity: 180.0 Unit: tab(s) Repeat number: 1gabapentin 300 mg oral capsule (10 sources)Anti-epileptic AgentStart: 10-29-2024 End: 35-74-6948umnb 1 capsule by mouth in the morninggabapentin (Neurontin) 300 MG capsule Take 300 mg by mouth in the morning and 300 mg before bedtime. 10/29/2024 Activehyoscyamine sulfate 0.125 mg oral tablet (3 sources)Start: 21-29-1642iotjkooisae 0.125 mg oral Tab 0.125 mg = 1 tab(s), Oral, PRN Nausea/Vomiting, Refills(s) 0 Start Date: 12/19/23 Status: Ordered levoFLOXacin 500 mg oral tablet (1 source)Quinolone AntimicrobialStart: 08-08-2024 End: 85-09-0619cidy 1 tablet by mouth every twenty-four hoursLevaquin 500 mg Tab 500 mg = 1 tab(s), Oral, q24hr, X 10 day(s), # 10 tab(s), Refills(s) 0, Pharmacy : [facility], 179.9, cm, 08/08/24 9:28:00 EDT, Height/Length Dosing, 108, kg, 08/08/24 9:28:00 EDT, Weight Dosing Start Date: 08/08/24 Stop Date: 08/18/24 Status: Ordered Quantity: 10.0 Unit: tab(s) Repeat number: 1linaclotide 0.072 mg oral capsule (1 source)Guanylate Cyclase-C AgonistStart: 81-98-6803xbyw 1 capsule by mouth once dailyLinzess 72 mcg oral capsule 72 mcg = 1 cap(s), Oral, Daily, # 30 cap(s), Refills(s) 3, Pharmacy: [facility], 180, cm, 01/18/24 9:06:00 EST, Height/Length Dosing, 118.9, kg, 01/18/24 9:06:00EST, Weight Dosing Start Date: 01/18/24 Status: Orderedmeloxicam 15 mg oral tablet (1 source)Nonsteroidal Anti-inflammatory DrugStart: 10-29-2024 End: 57-12-2053iyuy 1 tablet by mouth once dailymeloxicam 15 mg Tab 15 mg = 1 tab(s), Oral, Daily, X 14 day(s), # 14 tab(s), Refills(s) 0, Pharmacy: [facility]/pharmacy #[id number], 179, cm, 10/29/24 10:31:00 EDT, Height/Length Dosing, 110.2, kg, 10/29/24 10:31:00 EDT, Weight Dosing Start Date: 10/29/24 Stop Date: 11/12/24 Status: Ordered Quantity: 14.0 Unit: tab(s) Repeat number: 1 Indications: Testicular pain, unspecified;methylPREDNISolone (5 sources)CorticosteroidStart: 28-00-1235vzqzjvMPSZXIXjjdaj (Medrol Dospak) 4 MG tablets Indications: Right Achilles tendinitis Follow schedule on MEDROL PACK package instructions to be used as directed 21 tablet 01/09/2025 ActiveAleve (6 sources)Nonsteroidal Anti-inflammatory DrugStart: 67-44-8397wvhw 1 mg by mouth every twelve hours as needed for painAleve mg, Oral, q12hr, PRN as needed for pain, Refills(s) 0 Start Date: 12/19/23 Status: Ordered Repeat number: 1 Start: 78-67-0087xbob 1 mg by mouth every twelve hours as needed for painAleve mg, Oral, q12hr, PRN as needed for pain, Refills(s) 0 Start Date: 12/19/23 Status: OrderedStart: 46-97-8112lmnc 1 mg by mouth every twelve hoursAleve mg, Oral, q12hr, Refills(s) 0 Start Date: 12/19/23 Status: Orderedondansetron 4 mg oral tablet (3 sources)Serotonin-3 Receptor AntagonistStart: 91-67-0731hgzj 1 tablet by mouth every eight hours as needed for nauseaondansetron 4 mg Tab 4 mg = 1 tab(s), Oral, q8hr, PRN Nausea/Vomiting, Refills(s) 0 Start Date: 12/19/23 Status: Orderedpantoprazole 40 mg delayed release oral tablet (10 sources)Proton Pump InhibitorStart: 95-42-7719sugt 1 tablet by mouth once dailyPantoprazole 40 mg tablet,delayed release (DR/EC) Active 40 MG PO daily December 14, 2024 12:00am Complies with drug therapyStart: 01-26-2017 End: 12-98-2222wljt 1 tablet by mouth once dailyPantoprazole 20 mg Tablet,Delayed Release (Dr/Ec) Discontinued 1 TAB PO Daily January 26, 2017 1:00am December 14, 2024 12:44pmProtonix 40 mg Tab-EC (6 sources)Start: 02-13-6064exvr 1 tablet by mouth twice daily 30 minutes before mealtimeProtonix 40 mg Tab-EC 40 mg = 1 tab(s), Oral, BID, Take 30 minutes before meals, # 120 tab(s), Refills(s) 11, Pharmacy: [facility], 180, cm, 12/30/19 8:59:00 EDT, Height/Length Dosing, 112,kg, 12/30/19 8:59:00 EDT, Weight Dosing Start Date: 01/28/20 Status: Ordered Quantity: 120.0 Unit: tab(s) Repeat number: 12Start: 43-47-4186asrc 1 tablet by mouth twice daily 30 minutes before mealtimeProtonix 40 mg Tab-EC 40 mg = 1 tab(s), Oral, BID, Take 30 minutes before meals, # 120 tab(s), Refills(s) 11, Pharmacy: [facility], 180, cm, 12/30/19 8:59:00 EDT, Height/Length Dosing, 112,kg, 12/30/19 8:59:00 EDT, Weight Dosing Start Date: 01/28/20 Status: Orderedtamsulosin hydrochloride 0.4 mg oral capsule (12 sources)alpha-Adrenergic BlockerStart: 40-58-5562lgrw 1 capsule by mouth once daily at bedtimeTamsulosin 0.4 mg capsule Active 0.4 MG PO Daily at bedtime December 14, 2024 12:00am Complies withdrug therapy Completed/Discontinued Medications MedicationDrug Class(es)DatesSig (Normalized)Sig (Original)doxycycline hyclate 100 mg delayed release oral tablet (1 source)Tetracycline-class DrugStart: 01-26-2017 End: 66-35-6412niqq 1 tablet by mouth twice dailyDoxycycline Hyclate 100 mg tablet,delayed release (DR/EC) Discontinued 100 MG PO Twice daily 12 14January 26, 2017 1:00am January 30, 2017 1:00am January 31, 2017 1:04am fenoprofen 400 mg oral capsule (1 source)Nonsteroidal Anti-inflammatory DrugStart: 01-26-2017 End: 76-64-5467ionx 1 capsule by mouth every eight hours as needed for pain Fenoprofen (Nalfon) 400 mg capsule Discontinued 400 MG PO Q8H as needed for pain January 26, 2017 12:19pm December 14, 2024 12:44pm administer with food or milkpsyllium 525 mg oral capsule (3 sources)Start: 22-32-5894mplk 8 capsules by mouth once dailyMetamucil 525 mg oral capsule 1,050 mg = 2 cap(s), Oral, Daily, Take 2 hour apart from the other medications with at least 8 ounces of water, # 160 cap(s), Refills(s) 1, Pharmacy: [facility], 180, cm, 12/30/19 8:59:00 EDT, Height/Length Dosing, 112, kg, 12/30/19 8:59:00 EDT, Weight DosingStart Date: 12/31/19 Status: Ordered Problems Active Problems Problem ClassificationProblemDateDocumented DateEpisodic/ChronicAbdominal pain (16 sources)Abdominal pain; Translations: [Unspecified abdominal pain]Onset: 56-56-9756NteugdilBkiwfzdyeakcmu/social admission (2 sources)Patient encounter status; Translations: [Encounter for pre-employment examination]92-44-0766KuviiepqQksjzhehdc disorders (8 sources)Gastro-esophageal reflux disease with esophagitis; Translations: [Gastro-esophageal reflux disease with esophagitis]Onset: 76-87-4196Fncqxvx Genitourinary symptoms and ill-defined conditions (2 sources)Poor stream of urine; Translations: [Poor urinary stream]Onset: 97-50-8906BcrxstntObtrgykajej of prostate (5 sources)Benign prostatic hypertrophy with outflow obstruction; Translations: [Benign prostatic hyperplasia with lower urinary tract symptoms]Onset: 53-36-3250KalpwdbSafuwy and vomiting (8 sources)Vomiting; Translations: [Vomiting, unspecified]Onset: 12-19-2023 EpisodicNonspecific chest pain (4 sources)Chest pain, unspecified; Translations: [Other chest pain]Onset: 55-56-9674ClpuxtnhJteun acquired deformities (4 sources)Contracture of joint of right ankle; Translations: [Contracture, right ankle]61-25-4031NflltlrGjrte and unspecified benign neoplasm (8 sources)History of polyp of colon; Translations: [Personal history of colon polyps, unspecified]Onset: 97-85-7978MjyexuhnWwovt connective tissue disease (6 sources)Right achilles tendonitis; Translations: [Achilles tendinitis, right leg]51-74-4536WfeifuigCjlke diseases of kidney and ureters (2 sources)Urinary tract obstruction; Translations: [Other obstructive and reflux uropathy]Onset: 10-99-3957YgoxqjkpBhnfc diseases of veins and lymphatics (2 sources)Varicocele; Translations: [Scrotal varices]Onset: 69-65-4758Gmihexoa Other gastrointestinal disorders (8 sources)Irritable bowel syndrome; Translations: [Irritable bowel syndrome without diarrhea]Onset: 80-19-0569LqvgrfoTrjno gastrointestinal disorders (8 sources)Diarrhea; Translations: [Diarrhea, unspecified]Onset: 12-19-2023 EpisodicOther gastrointestinal disorders (8 sources)Abdominal wind pain; Translations: [Gas pain]Onset: 12-19-2023 EpisodicOther gastrointestinal disorders (2 sources)Swollen abdomen; Translations: [Abdominal distension (gaseous)]Onset: 25-91-0567CvvtxzxaFdmhk gastrointestinal disorders (6 sources)Abdominal trajrhfr41-64-9349NzgrcunfMiapi gastrointestinal disorders (1 source)Digestive system finding; Translations: [Other specified symptoms and signs involving the digestivesystem and abdomen]Onset: 29-15-7727OwcnorzrDhhno gastrointestinal disorders (4 sources)Defecation cbfojaxnr22-27-6539OgnfiaqeYmulq male genital disorders (5 sources)Pain in testicle; Translations: [Testicular pain, unspecified]Onset: 19-54-9167OktovlcxLxfmxkvd codes; unclassified (2 sources)Family history of malignant neoplasm of digestive organ; Translations: [Family history of malignantneoplasm of digestive organs]Onset: 63-73-2578WnyljwprKenyhlsx codes; unclassified (6 sources)Family history of colorectal jcjuyd45-46-0186UqmivpwnKjiooclqu- related disorders (7 sources)Nicotine dependence, cigarettes, uncomplicated; Translations: [Smoker]Onset: 555988-04-0841TnbfvryMpfhskr on above:Added secondary to documentation in Social History.Unclassified (6 sources)Finding of sensation of jcqwvde59-86-1351Trunb infection (3 sources)Anogenital human papillomavirus gxoybndel06-21-9407Tqtnttdy Past or Other Problems Problem ClassificationProblemDateDocumented DateEpisodic/ChronicE Codes: Natural/environment (1 source)Exposure to other specified factors, initial encounter; Translations: [EXPOSURE OTHER SPEC FACTORS INITIAL]Onset: 69-94-0733MoeyieyeQcbhjngejdo; intervertebral disc disorders; other back problems (4 sources)Pain in thoracic spine; Translations: [PAIN IN THORACIC SPINE]Onset: 05-81-9395DatllncmRanxrnx and strains (1 source)Strain of muscle and tendon of back wall of thorax, initial encounter; Translations: [STRN MSC TENDON BACK WALL THOR INIT]Onset: 13-07-4433Gnjteode Unclassified (1 source)vericoceleOnset: 12-18-2024 Results Test NameValueInterpretationReference RangeFacilityOffice Visiton 12-18-2024 Follow-up [id number] Antoine Garcia 1985 M Date Provider Department Center 12/18/2024 Rg4-RENNY ROY [facility] Second Fl No family history on file Level of Service:47027 DC OFFICE/OUTPATIENT NEW MODERATE MDM 45 MINUTES Reason for Visit and Comments: vericocele [Other] - Pt brought discNormalUniversity of Methodist [facility] Orders Onlyon 52-67-2075Dlsxnc [id number] Antoine Garcia 1985 M Date Provider Department Center 12/05/2024 [id number], HISTORICAL [facility] Second Fl No family history on fileNormalUniversity of Methodist Richardson Medical CenterRemyavap[facility] 49-42-7355QeibctsqjOkznuenry From: Krystyna Yang To: EU - Administrative; Sent: 09/19/2024 08:40:34 EDT Show up: 11/10/2024 08:40:00 EDT Subject: 3 month f/u Due Date/Time: 12/20/2024 08:40:00 EDT Reminder/Recall Patient was seeing Judith Delarosa and needs a 3 month f/u for med check. Due around 12/20/24 Left VM asking PT to call back and schedule. PT has seen Dr Sanchez since this message. Note say PT to follow [facility] Updateon 11-03-2024H&P UpdateH&P Update Patient: ANTOINE GARCIA Age: 39 years Sex: Male : 1985 Associated Diagnoses: None Author: Shanda Sanchez MD. Basic Information I have reviewed prior notes, spoke with patient, no changes to history. Patient elects to proceed with surgery as planned. Health Status Procedure history: Colonoscopy ([id number]) on 01/01/2024 at 38 Years. Colonoscopy ([id number]). EGD (esophagogastroduodenoscopic) electrohydraulic lithotripsy of bezoar in stomach (1223687005). Tonsillectomy and adenoidectomy (155370146). Social History Social & Psychosocial Habits Alcohol 09/19/2024 Type: Beer, Liquor Frequency: 1-2 times per month Use: Past Comment: Socially ' - 12/19/2018 09:56 - Jd Lovelace CMA Exercise 09/19/2024 Risk Assessment: Does not exercise Other 09/19/2024 Name: Caffeine-Energy drinks Substance Abuse 09/19/2024 Risk Assessment: Denies Substance Abuse Tobacco 10/29/2024 Tobacco Use: Former smoker, quit more Smokeless tobacco use: Never Type: Cigarettes Smoking Cessation Yes . Allergies: Allergic Reactions (Selected) Severity Not Documented Amoxicillin- Unknown. Penicillins- No reactions were documented. Current medications: (Selected) Prescriptions Prescribed Flomax 0.4 mg Cap: 0.4 mg = 1 cap(s), Oral, Daily, # 30 cap(s), Refills(s) 11, Pharmacy: [facility], 179.9, cm, 08/08/24 9:28:00 EDT, Height/Length Dosing, 108, kg, 08/08/24 9:28:00 EDT, Weight Dosing Protonix 40 mg Tab-EC: 40 mg = 1 tab(s), Oral, BID, Take 30 minutes before meals, # 120 tab(s), Refills(s) 11, Pharmacy: [facility], 180, cm, 12/30/19 8:59:00 EDT, Height/Length Dosing, 112, kg, 12/30/19 8:59:00 EDT, Weight Dosing gabapentin 300 mg Cap: 300 mg = 1 cap(s), Oral, BID, X 30 day(s), # 60 cap(s), Refills(s) 2, [id number], cm, 10/29/24 10:31:00 EDT, Height/Length Dosing, 110.2, kg, 10/29/24 10:31:00 EDT, Weight Dosing meloxicam 15 mg Tab: 15 mg = 1 tab(s), Oral, Daily, X 14 day(s), # 14 tab(s), Refills(s) 0, Pharmacy: [facility]/pharmacy #[id number], 179, cm, 10/29/24 10:31:00 EDT, Height/Length Dosing, 110.2, kg, 10/29/24 10:31:00 EDT, Weight Dosing Documented Medications Documented Aleve: mg, Oral, q12hr, PRN as needed for pain, Refills(s) 0 ciprofloxacin 500 mg Tab: 500 mg = 1 tab(s), Refills(s) 0 diclofenac sodium 75 mg Oral EC Tab: 75 mg = 1 tab(s), Oral, BID, # 180 tab(s), Refills(s) 0 Problem list: All Problems Abdominal cramping / SNOMED CT 968985232 / Confirmed Anogenital human papilloma virus (HPV) infection / SNOMED CT 4642215669 / Confirmed Bloating / SNOMED CT 384445240 / Confirmed BPH with obstruction/lower urinary tract symptoms / SNOMED CT 5889706350 / Confirmed Diarrhea / SNOMED CT 258263513 / Confirmed Family history of rectal cancer / SNOMED CT 5838617532 / Confirmed Gas pain / SNOMED CT 677180499 / Confirmed GERD with esophagitis / SNOMED CT 999532119 / Confirmed History of colon polyps / SNOMED CT 1077071328 / Confirmed Irritable bowel syndrome / SNOMED CT 46911351 / Confirmed Left lower quadrant abdominal pain / SNOMED CT 914972724 / Confirmed Left varicocele / SNOMED CT 60068619 / Confirmed LLQ pain / SNOMED CT 062613995 / Confirmed Smoker.. / SNOMED CT S637GO5T-7788-23O2-5406-RIW4H9913WN2 / Confirmed Added secondary to documentation in Social History. Straining during bowel movements / SNOMED CT 41595395 / Confirmed Testicle pain / SNOMED CT 744414205 / Confirmed Upper abdominal pain / SNOMED CT 529983290 / Confirmed Vomiting / SNOMED CT 5735108806 / Confirmed Weak urine stream / SNOMED CT 915414870 / ConfirmedNormalMemorial Health System Marietta Memorial HospitalComment on above:Result Comment: Electronically Signed By: Daniel LAST, Shanda Hugo\.br\Date and Time Signed: 11/03/24 09:03EDTInpatient Patient Summaryon 88-85-0594Zgbrsimhg Patient SummaryInpatient Patient Summary [place] [address] Clinical Summary Person Information Name: ANTOINE GARCIA Age: 39 Years : 1985 Sex: Male PCP: ELDA CASTREJON CNP Marital Status: Race: White Ethnicity: Non- or Language: Chinese Visit Id: Visit Reason: WEAK URINE STREAM Speciality: Acuity: Enc Type: Outpatient Med Service: Surgery Arrival: 11/03/2024 08:20:54 Discharge: Dispo Type: Address: [address] [place] [address] [phone] Provider Notes: Diagnosis: Voiding dysfunction; Weak urine stream Problems Active Weak urine stream Left varicocele LLQ pain Testicle pain BPH with obstruction/lower urinary tract symptoms Anogenital human papilloma virus (HPV) infection Straining during bowel movements Left lower quadrant abdominal pain Family history of rectal cancer History of colon polyps Diarrhea Vomiting Abdominal cramping Bloating Gas pain GERD with esophagitis Upper abdominal pain Irritable bowel syndrome Smoker.. Smoking Status: Functional Status: Sensory Deficits: History of Falls: Mobility Assistance Prior to Admission: ADLs: Current Level of Assistance for Self-Care/Mobility: Cognitive Status: Allergies penicillins amoxicillin (Unknown) Laboratory or Other Results This Visit (last charted value for your 11/03/2024 visit) No Laboratory or Other Results This Visit Measurements: Height: Weight: Blood Pressure: Not Valued / Not Valued BMI: Procedures No Procedures Performed or Documented Immunizations No Immunizations Documented This Visit Final Med List: ciprofloxacin (ciprofloxacin 500 mg Tab) 1 Tablets. diclofenac (diclofenac sodium 75 mg Oral EC Tab) 1 Tablets By Mouth 2 times a day. gabapentin (gabapentin 300 mg Cap) 1 Capsules By Mouth 2 times a day for 30 Days. Refills: 2. meloxicam (meloxicam 15 mg Tab) 1 Tablets By Mouth every day for 14 Days. Refills: 0. naproxen (Aleve) By Mouth every 12 hours as needed as needed for pain. pantoprazole (Protonix 40 mg Tab-EC) 1 Tablets By Mouth 2 times a day. Take 30 minutes before meals. Refills: 11. tamsulosin (Flomax 0.4 mg Cap) 1 Capsules By Mouth every day. Refills: 11. Care Team Members: Attending Physician: Shanda Sanchez MD Consulting Physician: Referring Physician: Shanda Sanchez MD Follow up: With: Address: When: Shanda Sanchez [address] [place] [address], [place] [address], [facility] [address] [place] [address] [phone] Business (1) [address] [place], [place] [phone] Business (1) Comments: Call for followup appointment Call for any problems. Patient Education Information: EU - Cystoscopy Discharge Instructions (CUSTOM)[facility] Main OR Intraoperative Recordon 78-50-2078Wxky OR Intraoperative RecordMain OR Intraoperative Record IntraOp Document Type FTURO Summary Primary Physician: Shanda Sanchez MD Finalized Date/Time: 11/03/24 09:09:43 Pt. Name: ANTOINE GARCIA.O.B./Sex: 1985 Male Med Rec #: [id number] Physician: Shanda Sanchez MD Financial #: [id number] Pt. Type: O Room/Bed: / Admit/Disch: 11/03/24 08:20:54 - Institution: Case Times FTURO Entry 1 Patient Times In Room 11/03/24 09:03:00 Out Room 11/03/24 09:10:00 Procedure Times Start 11/03/24 09:05:00 Stop 11/03/24 09:08:00 Anesthesia Times Last Modified By: Sanna Stewart RN 11/03/24 09:09:40 Case Attendance FTURO Entry 1 Entry 2 Entry 3 Case Attendee Shanda Sanchez MD, RN, Paula Carrasco Role Performed Surgeon - Primary Financial Service Professional - Primary Scrub - Primary Time In 11/03/24 09:04:00 11/03/24 09:03:00 11/03/24 09:03:00 Time Out 11/03/24 09:09:00 11/03/24 09:10:00 11/03/24 09:10:00 Procedure CYSTOSCOPY LOCAL(.) CYSTOSCOPY LOCAL(.) CYSTOSCOPY LOCAL(.) Comments Last Modified By: Sanna Stewart RN, RN, Leann E Ott RN, Leann E 11/03/24 09:09:41 11/03/24 09:09:41 11/03/24 09:09:41 Surgical Procedures FTURO Entry 1 Procedure Description Procedure CYSTOSCOPY LOCAL Modifiers . Surgeon Description CYSTOSCOPY Primary Procedure Yes Primary Surgeon Shanda Sanchez MD Start 11/03/24 09:05:00 Stop 11/03/24 09:08:00 Anesthesia Type Local Surgical Service Urology Wound Class 2 - Clean-Contaminated Last Modified By: Sanna Stewart RN 11/03/24 09:08:23 General Case Data FTURO Pre-Care Text: Classifies surgical wound, implements aseptic technique, initiates traffic control Entry 1 Case Information OR URO 1 FT Case Level None Wound Class 2 - Clean-Contaminated Specialty Urology Preop Diagnosis WEAK URINE STREAM Postop Same As Preop Yes Postop Diagnosis WEAK URINE STREAM Outcomes Met? Yes Last Modified By: Sanna Stewart RN 11/03/24 09:05:34 Post-Care Text: The patient is free from signs and symptoms of infection EU IntraOp - FTURO Pre-Care Text: Implements protective measures prior to operative or invasive procedure, confirms identity before the operative or invasive procedure, verifies operative procedure, surgical site, and laterality Entry 1 EU Perioperative Protocols Procedure(s) CYSTOSCOPY LOCAL(.) Patient Identity Birthday, ID Band Verified (select at Check, Patient least 2): Participation Consents / H and P H&P, Surgery/Procedure Operative Site N/A Verified Consent Marking Verified Surgical Site Yes Laterality Verified n/a Verified Procedure Verified Yes Correct Patient Yes Position Verified Availability Equipment, Medication Time Out Daniel LAST, Pat Kincaid Verified (If Participants Sanna MURCIA Miller, Applicable) Paula Mora Time Out Complete 11/03/24 09:04:00 Allergies Reviewed? Yes Allergies Reviewed Self/Patient With Body Position Supine Prep Area PENIS, SCROTUM Prep Agents Hibiclens Skin. Condition Intact, [place], Warm, & Dry Additional None Specimens Collected Vitals - EU Blood Pressure 137/87 Pulse 91 bpm Respirations 18 br/min SPO2 100 % EBL 0 I&O - EU Total Intake 0 Total Output 0 Outcomes Met? Yes Last Modified By: Sanna Stewart RN 11/03/24 09:07:39 Post-Care Text: The patient is free from signs and symptoms of injury caused by extraneous objects Sign Out FTURO Entry 1 Before Patient Leaves OR Nurse verbally Yes Nurse verbally n/a confirms with the confirms with the team the name of team that the procedure(s) instrument, sponge, recorded and needle counts are correct (or N/A) Nurse verbally n/a Nurse verbally Yes confirms with the confirms with the team how the team whether there specimen is labeled are any equipment (including patient problems to be name), if applicable addressed Sign Out Complete 11/03/24 09:08:00 Last Modified By: Sanna Stewart RN 11/03/24 09:08:25 Case Comments Finalized By: Sanna Stewart RN Document Signatures Signed By: Sanna Stewart RN 11/03/24 09:09No[facility] OR Preoperative Recordon [id number] OR Preoperative RecordMain OR Preoperative Record Holding Area Document Type FTURO Summary Primary Physician: Shanda Sanchez MD Finalized Date/Time: 11/03/24 09:07:59 Pt. Name: ANTOINE GARCIA /Sex: 1985 Male Med Rec #: [id number] Physician: Shanda Sancehz MD Financial #: [id number] Pt. Type: O Room/Bed: / Admit/Disch: 11/03/24 08:20:54 - Institution: Case Times Holding FTURO Pre-Care Text: Verifies consent for planned procedure, identifies individual values and wishes concerning care, includes family members in perioperative teaching Secures patient's records' belongings, and valuables, maintains patient's dignity and privacy, and maintains patient confidentiality Entry 1 In Holding 11/03/24 08:30:00 Outcomes Met? Yes Last Modified By: Adrianna Hernandez LPN 11/03/24 08:30:55 Post-Care Text: The patient participates in decisions affecting his or her perioperative plan of care The patient'sright to privacy is maintained Surgery Checklist FTURO Entry 1 Patient Birthday, ID Band Procedure Surgical Consent, With Identification: Check, Patient Verification: Patient Participation NPO after Midnight: n/a Personal Items: Glasses Limitations: up ad felipa Complaints of Pain: No Skin Integrity Intact, [place], Warm, & Dry Vitals - EU Blood Pressure 137/87 Pulse 91 bpm Respirations 18 br/min SPO2 100 % Additional None RN Reviewed Yes Specimens Collected Last Modified By: Sanna Stewart RN 11/03/24 09:07:58 Finalized By: Sanna Stewart RN Document Signatures Signed By: Adrianna Hernandez LPN 11/03/24 08:36 Sanna Stewart RN 11/03/24 09:07 Unfinalized History Date/Time Username Reason for Unfinalizing Freetext Reason for Unfinalizing 11/03/24 09:07 [id number] Modifying Existing [facility] Operative Reporton [id number] ReportOperative Report Patient: ANTOINE GARCIA Age: 39 years Sex: Male : 1985 Associated Diagnoses: None Author: Shanda Sanchez MD Procedure Operative Information Details: Date/ Time: 11/03/2024 09:10:00. Pre-Op Dx: Weak urine stream (FPQ51-OC R39.12, Discharge, Medical). Post-Op Dx: Weak urine stream (FBX38-HE R39.12, Discharge, Medical), Voiding dysfunction (FLF60-QW N39.8, Discharge, Medical). Anesthesia Type: Local. Procedure: Local Cystoscopy. Complications: None. Risks/Benefits/Informed Consent: Surgical risks, benefits, details of the procedure have been explained to the patient, Full informed consent has been obtained. Intraoperative Information Prepped: Patient is brought back to the endoscopy suite, Patient is placed in supine position, Patient prepped in the usual fashion with Betadine solution (Hibiclens), 2% Xylocaine Jelly is placed per Urethra, After waiting several minutes the Cystoscope is introduced. The Urethra is: Normal, Patient has tight sphincter squeeze and bearing down when asked to void. The Prostatic Urethra is: Unobstructed, Mild bilobar hypertrophy with elevated bladder neck. No intravesical prostatomegaly. The Bladder is: Normal, Trabeculated Mild (1), No bladder tumors, lesions, stones or foreign bodies.. The ureteral orifices: Show efflux of clear urine. Devices Implanted: None. Removal: Cystoscope is removed, The patient tolerated it well. Postoperative Information Discharge: Follow up arranged, Discussed findings of voiding dysfunction. No evidence of stricturesor significant anatomical blockage. Discussed pelvic floor therapy with biofeedback and proper voiding techniques. Patient opts to try this at home prior to formal referral. - He has not heard from [facility] yet regarding varicocelectomy referral. Patient to call if he does nothear by the end of the week -Call for referral for PFPT with biofeedback for voiding dysfunction if he desires -Follow up PRN.[facility] CenterComment on above:Result Comment: Electronically Signed By: Shanda Sanchez MD\.br\Date and Time Signed: 11/03/24 09:13EDTOutpatient Surgery Discharge Instructionon [id number] Surgery Discharge InstructionOutpatient Surgery Discharge Instruction [address] [address] Patient Discharge Instructions PERSON INFORMATION Name: ANTOINE GARCIA Date of : 1985 Current Date: 11/03/2024 09:10:08 PHYSICIANS Admitting Physician: Shanda Sanchez MD Comment: Discharge Diagnosis: Voiding dysfunction; Weak urine stream ANTOINE GARCIA has been given the following list of follow-up instructions, prescriptions, and patient education materials: IF UNABLE TO CONTACT YOUR PHYSICIAN AND YOU FEEL IT IS AN EMERGENCY, GO TO THE NEAREST EMERGENCY ROOM OR CALL 911 Follow up: With: Address: When: Shanda Sanchez [address] [place] [address] [phone] Business (1) [address] [place], [place] [phone] Business (1) Comments: Call for followup appointment Call for any problems. Comment: PATIENT EDUCATION INFORMATION Instructions: Cystoscopy ??? Voiding after the procedure: there may be some pain, burning, urgency, frequency and blood tinged urine following the procedure. These symptoms usually resolve within 2-5 days. Drink the amount of fluid it takes to keep the urine pink to yellow or clear in color. Drinking enough water and fluids will help to ease any discomfort after your procedure. ??? If you are having problems that seem out of the ordinary, please call. ??? If unable to contact your physician and you feel it is an emergency, go to the nearest emergency room or call 911 ??? Diet ??? you may resume your normal diet. ??? Activity ??? you may resume your normal activities ??? Call if you have a fever over 100 degrees. I, ANTOINE GARCIA, have received the attached patient education materials/instructions and haveverbalized understanding: May we do a follow up call? Yes No I was present when discharge instructions were given Patient Signature Date Clinican/Nurse Signature Date You may receive a survey from Miguel Ángel Judd asking you to rate your care experience. Your feedback is important and will help us understand what we do well and how we can improve the quality of care we provide to you, your loved ones and our community. It???s an honor to serve you. Thank you [facility] choosing [facility] CenterU[facility] Office/Clinic Noteon [id number] Office/Clinic Note Urology Office/Clinic Note Chief Complaint testicular pain HPI Staff Previously seen by [facility] Dx: testicular pain, LLQ pain and BPH with obstruction/LUTS. Flomax started at last OV. pt is taking cipro prescribed by Elda Castrejon, he feels no different. pt unable to give urine sample due to urinating before appointment, approximately 10 mins IPSS - 21 Bladder scan 24 ml History of Present Illness Tests reviewed: reviewed bladder scan, scrotal US I have reviewed the previous health record information and history for this patient from Judith Delarosa PA-C. I have reviewed and verified the staff HPI to be accurate for this encounter. Review of Systems PHQ Score Initial Depression Screen Score: 0 SCORE ROS - Provider Constitutional: denies weight loss, denies hot flashes. Eyes: denies eye problems. Gastrointestinal: denies nausea, denies vomiting. Cardiovascular: denies chest pain or angina. Integumentary: no dryness Musculoskeletal: denies musculoskeletal symptoms. ENMT: denies otolaryngeal symptoms. Respiratory: no shortness of breath. Heme/Lymph: denies easy bleeding tendency, denies easy bruising tendency. Psychiatric: no confusion, no anxiety. Genitourinary: See HPI. Physical Exam Vitals & Measurements T: 37 ???C(Tympanic) HR: 50(Peripheral) RR: 16 BP: 148/80 HT: 70 in HT: 179 cm WT: 242.949 lb WT: 110.2 kg BMI: 34.39 General Appearance: alert, no distress, well nourished, well developed male. Genitourinary: BL testes descended, nontender, no masses. Left epididymal head with small cyst minimally tender but site of his typical pain is within the cord/varicocele, stage II. No inguinal hernia. Assessment/Plan Vasectomy 01/[address] 12/07/23 - no stones, bladder/prostate unremarkable. BERTA 25 (25). Prior [facility] pt. 1. Left varicocele (I86.1: Scrotal varices) 08/08/24: Went to [facility] ER 07/30/24 for testicular pain, left side. No US done. UA neg. Gave pain meds only. Pt says when he gets up in the morning, he is fine with no pain but as the day goes on it gets pretty painful. Throbbing. Waxes and wanes. Radiates down left leg. : R scrotum/testicle normal. L testicle without swelling, tenderness, nodules. No obvious hydrocele. Question varicocele vs epididymal cysts/epididymitis. Denies new sexual partners or high risk sexual behavior. No concern for STDs. [1] Scrotal US 08/09/24 - L varicocele and epididymal head cysts, small R hydrocele. Shares entire testicle is tender, radiates from left groin and to left thigh. No relief after completing repeat levaquin given by another provided. Does not wear scrotal support, worsens pain. 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 Long periods of standing exacerbate pain. We discussed pathophysiology of varicoceles and implications such as pain, infertility and testicular atrophy. Indications for repair include symptoms, palpable varicocele, abnormal semen analysis, decreasing testicle size by 20%. Surgical repairs include open (inguinal, subinguinal, retroperitoneal), laparoscopic ligation of RP spermatic vein, percutaneous embolization. Microsurgical approach has lowest recurrence rate and risk of complications. SE: hematoma, scrotal edema, recurrence, testis atrophy, infection, and hydrocele for RP, ing, lap approaches. Discussed referral will need placed if pt wishes to proceed with repair. Risks/benefits discussed. Pt elects to proceed with repair as varicocele is very bothersome. Wishes to try medical management in the interim. Risk and benefits of medications discussed. Takingdiclofenac twice daily for tendonitis. Do not take while on meloxicam -Take meloxicam 15 qd x2 wks (avoid ibuprofen and other NSAIDs), gabapentin 300 mg twice daily (cantake up to tid) -Referral to sexual medicine specialist (prefers [facility]) to discuss left varicocelectomy 2. Testicle pain (N50.819: Testicular pain, unspecified) See #1. 3. Weak urine stream (R39.12: Poor urinary stream) Bladder scan 24 cc, last voided 15 min prior. IPSS 21 (12). Noticed weaker stream since his 20s. Hx HPV. Taking Flomax 0.4 mg qd which he feels improves sxs. However states he is voiding frequently, up to5x/hr. Shares a previous provider in [place] told him he had BPH. Advised pt he would have been very young to have this. Has to strain to void at times. Recommended cysto to evaluate for stricture and other etiologies. Risks/benefits discussed. Pt wishes to proceed. -Will schedule cystoscopy. The risks and benefits for cystoscopy have been discussed. The risks include bleeding, infection, and irritation of the bladder and urinary channel, among others. The patient, after being informed of procedural details and after questions have been answered, wishes to proceed. Full informed consent has been obtained. Will order Local anesthesia. Follow-up With When Contact Information Daniel LAST, Shanda Hugo, URL, [facility] [address] [place] [address]- [phone] Additional Instructions: sched cysto, referral to U (more content not included)...NormalFisher Caddo Medical CenterComment on above:Result Comment: Electronically Signed By: Daniel LAST, Shanda Hernandez.br\Date and Time Signed: 10/29/24 12:51EDT\.br\Electronically Co-Signed By: Freida Vera\.br\Date and Time Co- Signed: 10/29/24 11:05 EDTAmbulatory Visit Summaryon [id number] Visit SummaryAmbulatory Visit Summary ANTOINE GARCIA :1985 Visit Date:09/19/2024 Ambulatory Visit Instructions Your Care Team Attending Physician - JUDITH DELAROSA PA-C Primary Care Physician - ELDA CASTREJON CNP This Is Your Medications List acetaminophen-hydrocodone (acetaminophen-hydrocodone 325 mg-5 mg oral tablet) diclofenac (diclofenac sodium 75 mg Oral EC Tab) naproxen (Aleve) pantoprazole (Protonix 40 mg Tab-EC) tamsulosin (Flomax 0.4 mg Cap) Procedures Performed Colonoscopy (01/01/2024), Colonoscopy, EGD (esophagogastroduodenoscopic) electrohydraulic lithotripsy of bezoar in stomach, Tonsillectomy and adenoidectomy. Discharge Vitals Heart Rate (Peripheral) 55 Blood Pressure 117/77 Height 179.9 cm Height 71 in Weight 107.5 kg Weight 236.997 lb BMI 33.22 Medications What How Much When Instructions Unchanged acetaminophen-hydrocodone (acetaminophen-hydrocodone 325 mg-5 mg oral tablet) 1 Tablets By Mouth Every 6 hours as needed for for pain Unchanged diclofenac (diclofenac sodium 75 mg Oral EC Tab) 1 Tablets By Mouth 2 times a day Unchanged naproxen (Aleve) By Mouth Every 12 hours as needed for as needed for pain Unchanged pantoprazole (Protonix 40 mg Tab-EC) 1 Tablets By Mouth 2 times a day Take 30 minutes before meals Unchanged tamsulosin (Flomax 0.4 mg Cap) 1 Capsules By Mouth Every day Allergies amoxicillin (Unknown) penicillins Problems Ongoing - [...] you for choosing us for your care. Patient Portal You may access all of your results and other medical record information on our secure patient portal. If you are not signed up for this yet, please contact [employer] at [phone] to get signed up today. Language Information Language assistance services are available as needed. [facility] CenterUrology Office/Clinic Noteon [id number] Office/Clinic NoteUrology Office/Clinic Note Chief Complaint fu [facility] Staff 39 year old male here for a 6 week med check S/P vasectomy 01/2017 previous DX testicular pain, BPH with obstruction/lower urinary tract symptoms *started Flomax 0.4mg qd last OV Still taking Flomax not sold on it. However when I showed him the difference in IPSS he said maybe it's helping more than I realized. Patient denies any dysuria or gross hematuria. Denies any flank or abdomen pain. Sometimes weaker stream Review of Systems PHQ Score Initial Depression Screen Score: 0 SCORE No fever, chills, malaise, myalgia. No abdominal pain, flank pain, gross hematuria. Physical Exam Vitals & Measurements HR: 55(Peripheral) BP: 117/77 HT: 71 in HT: 179.9 cm WT: 236.997 lb WT: 107.5 kg BMI: 33.22 General: nontoxic, NAD Mouth: moist mucosa Lungs: normal respiratory effort Cardio: regular rate, good distal perfusion Abdomen: nondistended Neurologic: Grossly normal Skin: No rashes or suspicious lesions Assessment/Plan Vasectomy 01/[address] 12/07/23 - no stones, bladder/prostate unremarkable. BERTA 25 1. Testicle pain (N50.819: Testicular pain, unspecified) 08/08/24: Went to [facility] ER 07/30/24 for testicular pain, left side. No US done. UA neg. Gave pain meds only. Pt says when he gets up in the morning, he is fine with no pain but as the day goes on it gets pretty painful. Throbbing. Waxes and wanes. Radiates down left leg. : R scrotum/testicle normal. L testicle without swelling, tenderness, nodules. No obvious hydrocele. Question varicocele vs epididymal cysts/epididymitis. Denies new sexual partners or high risk sexual behavior. No concern for STDs. -Scrotal US (scheduled tomorrow). -Levaquin x 10d. TODAY: Scrotal US 08/09/24 shows L varicocele and epididymal head cysts, small R hydrocele. Discussed US results/findings. Pt reports complete resolution of testicular pain w abx. Ordered: E&M of Est. Patient Moderate 30-39 Min 21927 2. LLQ pain (R10.32: Left lower quadrant pain) At initial ov pt thought pain radiated from L testicle to LLQ/L hip and down leg. However the L testicle pain has completely resolved. He continues to have LLQ/L hip pain which radiates down L leg. Idid not appreciate obvious hernia on exam last ov, however advised this could certainly be the case. He does note the pain worsens w certain movements and heavy lifting. Could also be musculoskeletalin nature. Recommend eval w PCP. Can refer to Ortho/PT vs Gen Surg. Advised if no resolution, we will reassess at next ov here to ensure how etiology. Ordered: E&M of Est. Patient Moderate 30-39 Min 41898 3. BPH with obstruction/lower urinary tract symptoms (N40.1: Benign prostatic hyperplasia with lower urinary tract symptoms) 08/08/24: IPSS 24 QOL 4 Sx present for 10 yrs or so. Slowly worsening. No acute changes. No hx prostatitis. -Start Flomax. TODAY: IPSS 12 QOL 3 Has noticed about 50% improvement on medication. No bothersome side effects. Discussed options - continue qd vs increase to 2 caps daily. pt wishes to make no change at this time. Reassess as next ov. Ordered: E&M of Est. Patient Moderate 30-39 Min 99510 Other obstructive and reflux uropathy (N13.8: Other obstructive and reflux uropathy) Follow-up With When Contact Information ISAURA TAYLOR, JUDITH Terry, URL In 3 months [address] [place] [address] Additional Instructions: Patient Education Benign Prostatic Hyperplasia Problem List/Past Medical History Ongoing Abdominal cramping Anogenital human papilloma virus (HPV) infection Bloating BPH with obstruction/lower urinary tract symptoms Diarrhea Family history of rectal cancer Gas pain GERD with esophagitis History of colon polyps Irritable bowel syndrome Left lower quadrant abdominal pain LLQ pain Smoker.. Straining during bowel movements Testicle pain Upper abdominal pain Vomiting Historical No qualifying data Procedure/Surgical History Colonoscopy (01/01/2024), Colonoscopy, EGD (esophagogastroduodenoscopic) electrohydraulic lithotripsy of bezoar in stomach, Tonsillectomy and adenoidectomy. Medications acetaminophen-hydrocodone 325 mg-5 mg oral tablet, 1 tab(s), Oral, q6hr, PRN Aleve, Oral, q12hr, PRN diclofenac sodium 75 mg Oral EC Tab, 75 mg= 1 tab(s), Oral, BID Flomax 0.4 mg Cap, 0.4 mg= 1 cap(s), Oral, Daily, 11 refills Protonix 40 mg Tab-EC, 40 mg= 1 [...] more than 30 days ago Tobacco Use:. Ne (more content not included)...[facility] CenterComment on above:Result Comment: Electronically Signed By: JUDITH DELAROSA PA-C\.br\Date and Time Signed: 09/19/2514:04 EDTAmbulatory Visit Summaryon [id number] Visit Summary Ambulatory Visit Summary ANTOINE GARCIA :1985 Visit Date:08/08/2024 Ambulatory Visit Instructions Your Diagnosis Testicular pain Your Care Team Attending Physician - JUDITH DELAROSA PA-C Primary Care Physician - ELDA CASTREJON CNP This Is Your Medications List levofloxacin (Levaquin 500 mg Tab) tamsulosin (Flomax 0.4 mg Cap) Contact prescribing physician if questions or concerns acetaminophen-hydrocodone (acetaminophen-hydrocodone 325 mg-5 mg oral tablet) diclofenac (diclofenac sodium 75 mg Oral EC Tab) naproxen (Aleve) pantoprazole (Protonix 40 mg Tab-EC) Procedures Performed Colonoscopy (01/01/2024), Colonoscopy, EGD (esophagogastroduodenoscopic) electrohydraulic lithotripsy of bezoar in stomach, Tonsillectomy [...] 11 Pickup at [facility] Unchanged acetaminophen-hydrocodone (acetaminophen-hydrocodone 325 mg-5 mg oral tablet) 1 Tablets By Mouth Every 6 hours as needed for for pain Contact prescribing physician if questions or concerns Unchanged diclofenac (diclofenac sodium 75 mg Oral EC Tab) 1 Tablets By Mouth 2 times a day Contactprescribing physician if questions or concerns Unchanged naproxen (Aleve) By Mouth Every 12 hours as needed for as needed for pain Contact prescribing physician if questions or concerns Unchanged pantoprazole (Protonix 40 mg Tab-EC) 1 Tablets By Mouth 2 times a day Take 30 minutes before meals Contact prescribing physician if questions or concerns Pharmacy Information [facility]: [address] [place], [place] [phone] Allergies amoxicillin (Unknown) penicillins Problems Ongoing - [...] you for choosing us for your care. 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 pt has [...] wanes. Radiates down left leg. Went to [facility] ER 07/30/24 - no US done. UA [...] E&M of New Patient Moderate 45-59 Min 61098 Urnls Dip Stick Auto w/o Microscopy POC 72429 US Scrotum (Contents) 2. BPH with obstruction/lower urinary tract symptoms (N40.1: Benign prostatic hyperplasia with lower urinary tract symptoms) IPSS 24 QOL 4 Sx present for 10 yrs or so. Slowly worsening. No acute changes. No hx prostatitis. -Start Flomax once daily. Risks/benefits/side effects discussed. Ordered: E&M of New Patient Moderate 45-59 Min 34045 Other obstructive and reflux uropathy (N13.8: Other [...] Follow-up With When Contact Information ISAURA TAYLOR, JUDITH Terry, URAshly Within 6 weeks [address] [place] [address] [facility] (1) Additional Instructions: Patient Education Benign [...] data Procedure/Surgical History Colonoscopy (01/01/2024), Colonoscopy, EGD (esophagogastroduodenoscopic) electrohydraulic lithotripsy of bezoar in stomach, Tonsillectomy and adenoidectomy. Medications acetaminophen-hydrocodone 325 mg-5 mg oral tablet, 1 tab(s), [...] whole 02/13/2012 Recorded hepa (more content not included)...[facility] CenterComment on above:Result Comment: Electronically Signed By: JUDITH DELAROSA PA-C\.mary\Date and Time Signed: 08/08/2512:33 EDTAmbulatory Visit Summaryon 01-18-2024 Ambulatory Visit SummaryAmbulatory Visit Summary ANTOINE GARCIA :1985 Visit Date:01/18/2024 Ambulatory Visit Instructions Your Diagnosis GERD with esophagitis Irritable bowel syndrome Abdominal cramping Bloating Diarrhea History of colon polyps Gas pain Vomiting Family history of rectal cancer Left lower quadrant abdominal pain Straining during bowel movements Your Care Team Attending Physician - Jt LAST, Vianca Silva Primary Care Physician - ELDA CASTREJON CNP This Is Your Medications List [...] capsule) Procedures Performed Colonoscopy (01/01/2024), Colonoscopy, EGD (esophagogastroduodenoscopic) electrohydraulic lithotripsy of bezoar in stomach. Discharge [...] during bowel movements Refills: 3 Pickup at [facility] Unchanged bifidobacterium infantis (Align 4 mg [...] Pharmacy Information [facility]: [address] [place], [place] [phone] Allergies amoxicillin (Unknown) penicillins Problems Ongoing - [...] you for choosing us for your care. [facility] CenterGastroenterology Office/Clinic Noteon [id number] Office/Clinic NoteGastroenterology Office/Clinic Note Chief Complaint Stabbing abdominal pain [...] Daily, # 30 cap(s), Refills(s) 3, Pharmacy: [facility], 180, cm, 01/18/24 9:06:00 EST, Height/Length Dosing, 118.9, kg, 01/18/24 9:06:00 EST, Weight Dosing 2. Irritable bowel syndrome (K58.9: Irritable bowel syndrome, unspecified) Ordered: linaclotide, 72 mcg = 1 cap(s), Oral, Daily, # 30 cap(s), Refills(s) 3, Pharmacy: [facility], 180, cm, 01/18/24 9:06:00 EST, Height/Length [...] cancer (Z80.0: Fam (more content not included)... [facility] CenterComment on above:Result Comment: Electronically Signed By: Jt LAST, Vianca Silva\.br\Date and Time Signed: 01/17/2409:25 EST Reminderson [id number] From: Destiny Stallings To: [facility] - Reminders/Recalls; Sent: 01/16/2024 15:40:53 EST Show up: 12/02/2028 15:39:00 EDT Subject: Ambulatory Reminder- colonoscopy 5 year recall Due Date/Time: 01/01/2029 15:38:00 EDT Reminder/Recall Colonoscopy Dr Waters- 01/02/24 5 year recall due too family history.[facility] CenterReminders Reminders From: Destiny Stallings To: [facility] - Reminders/Recalls; Sent: 01/15/2024 13:05:33 EST Show up: 01/14/2034 13:05:00 EST Subject: Ambulatory Reminder- 10 year colonoscopy Due Date/Time: 01/14/2034 13:05:00 EST Reminder/Recall Colonoscopy Dr Waters-01/01/24 10 yearsNoMadison HealthComment on above:Other Comment: Family history of rectal cancer. Changing to 5 year recall.Surgical Pathology Reporton [id number] Pathology ReportMercy Health Lorain Hospital [address] [place] [address]- Surgical Pathology Report Collected Date/Time: 01/01/2024 11:09 EDT Pathologist: Jewel LAST PhD, Michael Limon Received Date/Time: 01/01/2024 13:38 EDT Jt LASTVianca MD, Vianca Burris Surgical Pathology Report - [...] is entirely submitted in one cassette. (DC) DC:[facility] Microscopic Description Microscopic examination performed unless gross only specified.[facility] CenterComment on above:Performed By: #### [id number] #### [facility] [address] [place], [place] [address]Vgdurxdzf By: #### [id number] ####[facility] [address] [place], [place] [address]Noxr OR Intraoperative Recordon [id number] OR Intraoperative RecordMain OR Intraoperative Record IntraOp Document Type FT Summary Primary Physician: Vianca Waters MD Finalized Date/Time: 01/02/24 14:49:43 Pt. Name: ANTOINE GARCIA/Sex: 1985 Male Med Rec #: [id number] Physician: Vianca Waters MD Financial #: [id number] Pt. Type: O Room/Bed: / Admit/Disch: 01/01/24 [...] Werner CRNA, RN, Monique Degroot Role Performed SUPERVISOR Financial Service Professional - Primary Scrub - Primary Time In [...] RN, Miles, Kirstyn K, Sparks, Micala E, Jt LAST, Vianca Silva Time Out Complete 01/01/24 11:00:00 [...] and tissue Entry 1 Skin Integrity Intact, [place], Warm, & Skin Abnormality No Dry Outcomes [...] Entry 1 Procedure COLONOSCOPY(. (more content not included)...[facility] CenterDischarge Instructionson [id number] InstructionsDischarge Instructions ANTOINE GARCIA :1985 Visit Date:01/01/2024 Inpatient Discharge Instructions Your [...] capsule) Procedure History Colonoscopy (01/01/2024), Colonoscopy, EGD (esophagogastroduodenoscopic) electrohydraulic lithotripsy of bezoar in stomach. What to do next Instructions From Your Doctor No qualifying data available. Previously Scheduled Follow-Up Appointments Sunday 8:45 AM EST With: Vianca Waters MD Where: [facility] [address] [place] [address] [place] [address]- Medications What How Much When Instructions Next [...] these instructions at home: Medicines ? Take cmwm-zsu-vzpoxub and prescription medicines only as told by [...] this 3?4 times a day. You may dothis in a bathtub. You may also use a portable sitz bath that fits over the toilet. ? If told (more content not included)...[facility] Medical CenterComment on above:Result Comment: Electronically Signed By: Sara Simmons I\.br\Date and Time Signed: 01/01/24 11:23 EDTH&P Updateon 01-01-2024H&P UpdateH&P Update Patient: ANTOINE GARCIA Age: 38 years Sex: Male : 1985 Associated Diagnoses: None Author: Jt LAST, Vianca Silva Preoperative Information Chief compliant/Indication for procedure: Diarrhea Chief Complaint as above Review of Systems All systems reviewed, negative except as mentioned above Physical Examination Vital Signs (last 24 hrs) Last Charted Temp Temporal 36.6 DegC (DEC 31 10:30) Heart Rate Monitored 67 bpm (DEC 31:30) Resp Rate 17 br/min (DEC 31 10:30) SBP 121 mmHg (DEC 31 10:30) DBP 74 mmHg (DEC 31 10:30) Weight 115.8 kg (DEC 31 09:28) General: in Nad Abdomen: Soft, NTND Impression and Plan Diagnosis: Diarrhea - colonoscopyNoMadison HealthMain OR PACU II Recordon [id number] OR PACU II RecordMain OR PACU II Record PACU Phase II Document Type FT Summary Primary Physician: Vianca Waters MD Finalized Date/Time: 01/01/24 11:50:23 Pt. Name: ANTOINE GARCIA /Sex: 1985 Male Med Rec #: [id number] Physician: Vianca Waters MD Financial #: [id number] Pt. Type: O Room/Bed: / Admit/Disch: 01/01/24 [...] and monitors body temperature Evaluates postoperative respiratory statusEvaluates postoperative cardiac status Evaluates postoperative neurological status [...] individualized perioperative plan of care The patient's rightto privacy is maintained The patient's value system, [...] with or improved from baseline levels established preoperativelyThe patient's cardiovascular status is consistent with or improved from baseline levels established preoperatively The patient's neurological status is consistent with or improved from baseline levels established preoperatively The patient demonstrates and/or reports adequate pain control throughout the perioperative period The patient received appropriate medication(s), safely administered during the perioperativeperiod Finalized By: Sara Simmons I Document Signatures Signed By: Sara Simmons I 01/01/24 11:49 Sara Simmons I 01/01/24 11:50NoMadison HealthMain OR Preoperative Recordon [id number] OR Preoperative RecordMain OR Preoperative Record Holding Area Document Type FT Summary Primary Physician: Vianca Waters MD Finalized Date/Time: 01/01/24 10:24:49 Pt. Name: ANTOINE GARCIA PARUL Ragland/Sex: 1985 Male Med Rec #: [id number] Physician: Vianca Waters MD Financial #: [id number] Pt. Type: O Room/Bed: / Admit/Disch: 01/01/24 [...] or her perioperative plan of care The patient'sright to privacy is maintained Surgery Checklist FT [...] completed prep at 0530 and remained NPO since/[place] Finalized By: Staci Sandy RN Document Signatures Signed By: Staci Sandy RN 01/01/24 10:24[facility] Medical CenterOperative Reporton [id number] ReportOperative Report Patient: ANTOINE GARCIA Age: 38 years Sex: Male : 1985 Associated Diagnoses: None Author: Vianca Waters MD Pre-Procedure Procedure Date 01/01/2024 11:15:00 . Procedure Type: Colonoscopy with biopsy. Procedure provider Performed by Vianca Waters MD. Current history and physical Documented on chart. Colonoscopy ([id number]). EGD (esophagogastroduodenoscopic) electrohydraulic lithotripsy of bezoar in stomach ([id number]).. Past Medical History Active Upper abdominal pain (012048364). Family History Alcoholism Father Brother Rectal cancer Father . Procedure History Colonoscopy ([id number]). EGD (esophagogastroduodenoscopic) electrohydraulic lithotripsy of bezoar in stomach (0825947530).. Colorectal neoplasm risk assessment Average risk. Informed [...] course, # 28 cap(s), Refills(s) 0, [facility]acy: [facility], 180, cm, 12/30/19 8:59:00 EDT, Height/Length Dosing, 112, kg, 12/30/19 8:59:00 EDT, Weight Dosing Metamucil 525 mg oral capsule: 1,050 mg = 2 cap(s), Oral, Daily, Take 2 hour apart from the other medications with at least 8 ounces of water, # 160 cap(s), Refills(s) 1, Pharmacy: [facility], 180, cm, 12/30/19 8:59:00 EDT, Height/Length Dosing, 112, kg, 12/30/19 8:59:0... Protonix 40 mg Tab-EC: 40 mg = 1 tab(s), Oral, BID, Take 30 minutes before meals, # 120 tab(s), Refills(s) 11, Pharmacy: [facility], 180, cm, 12/30/19 8:59:00 EDT, Height/Length Dosing, 112, kg, 12/30/19 8:59:00 EDT, Weight Dosing Questran 4 g/9 g oral powder: = 1 packet(s), Oral, BID, # 60 EA, Refills(s) 2, Pharmacy: [facility], 180, cm, 12/19/23 14:34:00 EDT, [...] the left lateral decubitus position. Endoscope type usedwas a pediatric-size. The endoscope was lubricated then [...] normal colon, random biopsies were obtained to ruleout microscopic colitis 3. Normal Terminal ileum Images Procedure images: Rec1_hd_video_2023__T10_16_20_[id number].jpg Rec1_hd_video_2023__T10_17_18_133.jpg Rec1_hd_video_2023__T10_18_40_587.jpg Rec1_hd_video_2023__T10_22_26_891.jpg Rec1_hd_video_2023__T10_22_42_977.jpg Rec1_hd_video_2023__T10_23_30_980.jpg . Post-Procedure Complications: none. Estimated blood loss: [...] 24 hours. Education and Follow-up: Counseled: Patient, Family.[facility] Campus Medical CenterComment on above:Result Comment: Electronically Signed By: Jt LAST, Vianca Olguin.br\Date and Time Signed: 12/31/2410:16 EDTOther Comment: Missing Attachment - attachment storage system not supported [id number] Can be viewed in source systemMissing Attachment - attachment storage system not supported [id number] Can be viewed insource systemMissing Attachment - attachment storage system not supported [id number] Can be viewed in source systemMissing Attachment - attachment storage system not supported [id number] Can be viewed in source systemMissing Attachment - attachment storage system not supported [id number] Can be viewed in source systemMissing Attachment - attachment storage system not supported [id number] Can be viewed in source systemAmbulatory Visit Summaryon 17-96-0793Svqqxnmcuh Visit SummaryAmbulatory Visit Summary ANTOINE GARCIA :1985 Visit Date:12/19/2023 Ambulatory Visit Instructions Your Diagnosis GERD with esophagitis Irritable bowel syndrome Abdominal cramping Bloating Diarrhea Gas pain Vomiting History of colon polyps Family history of rectal cancer Your Care Team Attending Physician - Vianca Waters MD Primary Care Physician - ELDA CASTREJON CNP This Is Your Medications List cholestyramine (Questran 4 g/9 g oral powder) Contact prescribing physician if questions or concerns bifidobacterium infantis (Align 4 mg oral capsule) hyoscyamine (hyoscyamine 0.125 mg oral Tab) naproxen (Aleve) ondansetron (ondansetron 4 mg Tab) pantoprazole (Protonix 40 mg Tab-EC) psyllium (Metamucil 525 mg oral capsule) Procedures Performed Colonoscopy, EGD (esophagogastroduodenoscopic) electrohydraulic lithotripsy of bezoar in stomach. Discharge Vitals Heart Rate (Peripheral) 66 Blood Pressure 121/78 Height 180 cm Height 71 in Weight 115.8 kg Weight 254.76 lb BMI 35.74 What to do next Scheduled Follow-Up Appointments Sunday 8:45 AM EST With: Vianca Waters MD Where: [facility] [address] [facility] [address] [place] [address]- Medications What How Much When Instructions New cholestyramine (Questran 4 g/ 9 g oral powder) 1 Packets By Mouth 2 times a day Refills: 2 Pickup at [facility] Unchanged bifidobacterium infantis (Align 4 mg oral capsule) 1 Capsules By Mouth Every day Take after completing the Antibiotics course Contact prescribing physician if questions or concerns Unchanged hyoscyamine (hyoscyamine 0.125 mg oral Tab) Contact prescribing physician if questions orconcerns Unchanged naproxen (Aleve) By Mouth Every 12 [...] Pharmacy Information [facility]: [address], [place] [id number] [phone] Allergies amoxicillin (Unknown) penicillins Problems Ongoing - [...] you for choosing us for your care. [facility] CenterGastroenterology Office/Clinic Noteon [id number] Office/Clinic NoteGastroenterology Office/Clinic Note Chief Complaint Abdominal pain HPI [...] and Flagyl/Align at last visit- pt never tookthe align.Currently on Opioids and having 1 BM [...] decreasing Protonix to QD CT 12/07/23 @ [facility]: IMPRESSION: 1. No acute abdominal or [...] IMPRESSION: NORMAL GASTRIC EMPTYING. Labs 05/25/23 @ [facility]: BUN 19.0 (H) ALT 89 (H) CBC [...] No qualifying data Procedure/Surgical History Colonoscopy, EGD (esophagogastroduodenoscopic) electrohydraulic lithotripsy of bezoar in stomach. Medications [...] Rectal cancer: Father. Im (more content not included)...[facility] Campus Medical CenterComment on above:Result Comment: Electronically Signed By: Jt LAST, Vianca Silva\.br\Date and Time Signed: 12/18/2413:45 EDTProvider Letteron [id number] Letter Provider Letter December 19, 2023 ANTOINE GARCIA [address] [address] : 1985 To Whom It May Concern, Please excuse above patient from work. On 12/19/2023 for being seen n our office today. Date of Illness:12/19/2023 From: _ To: _12/19/2023 May Return to Work On:12/20/2023 Sincerely, Marlon CaddoSentara [facility] [id number] HealthXR CHEST 1 Von 52-49-1614YE CHEST 1 VEXAMINATION: XR CHEST 1 V HISTORY: CHEST PAIN, UNSPECIFIED ; [...] Electronically authenticated by: TORIN DUNN Date: 2022-02-07 09:27[facility] T[facility] 2 VIEWSon 17-11-6924VZ TSPINE 2 VIEWSEXAM: XR TSPINE 2 VIEWS HISTORY: Acute back [...] Electronically authenticated by: KARLA TEJEDA Date: 2021-05-18 19:43[facility] Vital Signs Date TimeVital SignValuePerforming ShzcgwxulXfxjqulj70-02-6663 15:23-0500Body namdnh255.3 cmNatanael Weaver DPM Work Phone: [facility] CenterVsuyfdwypu62-98-6222 15:23-0500Body mass index (BMI) [Ratio]33.47 kg/j4EugieooeNatanael Weaver DPM Work Phone: [facility] CenterIyytjauoiv99-53-0034 15:23-0500Body kknsau328.86 kgNatanael Weaver DPM Work Phone: [facility] CenterFehjcpbkbu48-05-5059 15:23-0500Respiratory rate18 /minNatanael Weaver DPM Work Phone: [facility] CenterMviwtvacof48-86-8167 09:30-0400Body knukjw534.3 cmNicamado Weaver DPM Work Phone: [facility] CenterIqntpixgxh33-85-2668 09:30-0400Body mass index (BMI) [Ratio]33.47 kg/m6LdvsampgNatanael Weaver DPM Work Phone: [facility] CenterNanqrlduuv87-30-5461 09:30-0400Body omyslv014.86 kgNatanael Weaver DPM Work Phone: [facility] CenterGtifbhgpbx33-51-6132 09:30-0400Respiratory rate18 /minNatanael Weaver DPM Work Phone: [facility] CenterAlfnywjcqa05-51-8854 16:51-0400Body temperature 97.59 [degF]Suzie Lowgap DO Work Phone: noCox Walnut LawnSpcuuyddjq98-91-4055 16:51-0400Diastolic blood ajvkokpd92 mm[Hg]Suzie Lowgap DO Work Phone: noCox Walnut LawnTtiklkyzey26-96-4874 16:51-0400Heart rate82 /min Suzie Lowgap DO Work Phone: [place] [address]Jqwdyuwpox37-63-4555 16:51-4897OwT4% (BldA) [Mass fraction]96 %Suzie Lowgap DO Work Phone: noCox Walnut LawnRjvudlwjju15-95-1952 16:51-0400Systolic blood vebjccvm143 mm[Hg]Suzie Lowgap DO Work Phone: noCox Walnut LawnGnbztccseg64-82-5454 12:41-0400Body vjsoyi980.34 cmPamela Jalen ROLL TESTER-C Work Phone: [phone]10-05-2025 12:41-0400 Body mass index (BMI) [Ratio]33.5 kg/m2Lctgmr Jalen ROLL TESTER-C Work Phone: [phone]10-05-2025 12:41-0400 Body vkzcygqlary41.1 [degF]Elda Jalen ROLL TESTER-C Work Phone: [phone] [place], [place] 40[address]10-05-2025 12:41-0400 Body zkbgci767.86 kgElda Jalen ROLL TESTER-C Work Phone: [phone] [place], [place] [address]10-05-2025 12:41-0400 Diastolic blood ukrzbtiv19 mm[Hg]Elda Jalen ROLL TESTER-C Work Phone: 1(677)[address] [place], [place] [address]10-05-2025 12:41-0400 Heart rate78 /minChanninga Jalen ROLL TESTER-C Work Phone: 1(180)[address] [place], [place] [address]10-05-2025 12:41-0400 Respiratory rate18 /minChanninga Jalen ROLL TESTER-C Work Phone: [phone])[address] [place], [place] 4050910-05-2025 12:41-0400 SaO2% (BldA) [Mass fraction]96 %Elda Jalen ROLL TESTER-C Work Phone: 1(767)[address] [place], [place] 40[address]10-05-2025 12:41-0400 Systolic blood gxkdctyl420 mm[Hg]Elda Jalen ROLL TESTER-C Work Phone: 1(018)[facility]-[address] [place], [place] [address]11-08-2024 09:02-0500 Blood Pressure LocationMomartha Glaserli 057-6104Gnvmda-LctlrCenterville11-08-2024 09:02-0500Diastolic blood gzkigoyw30 mm[Hg]Vianca Waters [phone]-IlkigCenterville11-08-2024 09:02-0500Heart rate67 /Mansoor Waters [phone]-Yyuvf[address] [place], [place] [address]-08-2024 09:02-0500Systolic blood clnkujqz986 mm[Hg]Mohamad Mouchli [address] [place], [place] 6916110-22-2024 11:33-0400Diastolic blood tmgqlhyo89 mm[Hg]Mohamad Mouchli [address]10-22-2024 11:33-0400Heart rate80 /minMohamad Mouchli [address] [place], [place] 3876210-22-2024 11:33-0400Mean blood mm[Hg]Mohamad Mouchli [address] [place], [place] 2755110-22-2024 11:33-0400 Respiratory rate19 /minMohamad Mouchli [address] [place], [place] 2755110-22-2024 11:33-0229CkB8% (BldA) [Mass fraction]97 %Mohamad Mouchli [address] [place], [place] 2755110-22-2024 11:33-0400 Systolic blood sdcojkzj010 mm[Hg]Mohamad Mouchli [address] [place], [place] 2755110-22-2024 11:25-0400 Diastolic blood mm[Hg]Mohamad Mouchli [address]10-22-2024 11:25-0400Heart rate75 /minMohamad Mouchli [address] [place], [place] 3876210-22-2024 11:25-0400Mean blood mpmavhwg48 mm[Hg]Mohamad Mouchli [address]10-22-2024 11:25-0400 Respiratory rate18 /minMohamad Mouchli [address] [place], [place] 4639110-22-2024 11:25-9994UsS6% (BldA) [Mass fraction]94 %Mohamad Mouchli [address] [place], [place] 4639110-22-2024 11:25-0400 Systolic blood aawoyore84 mm[Hg]Mohamad Mouchli [address] [place], [place] 2755110-22-2024 11:18-0400Body qbjowbaxgbx51.06 [degF]Mohamad Mouchli [address] [place], [place] 2755110-22-2024 11:18-0400 Diastolic blood alrgnjrs32 mm[Hg]Mohamad Mouchli [address] [place], [place] 2755110-22-2024 11:18-0400Heart rate77 /minMohamad Mouchli [address] [place], [place] 2755110-22-2024 11:18-0400Mean blood mm[Hg]Mohamad Mouchli [address] [place], [place] 2755110-22-2024 11:18-0400 Respiratory rate20 /minMohamad Mouchli [address] [place], [place] 2755110-22-2024 11:18-6307OnZ6% (BldA) [Mass fraction]94 %Mohamad Mouchli [address] [place], [place] 4639110-22-2024 11:18-0400 Systolic blood xchfktsi632 mm[Hg]Mohamad Mouchli [address] [place], [place] 4639110-22-2024 11:10-0400 Respiratory rate23 /minMohamad Mouchli [address] [place], [place] 2755110-22-2024 11:05-0400 Respiratory rate25 /minMohamad Mouchli [address] [place], [place] 2755110-22-2024 11:00-0400 Respiratory rate17 /minMohamad Mouchli [facility]10-22-2024 10:30-0400Blood Pressure LocationModevangad Symwavepatriciali [facility]10-22-2024 10:30-0400Body eqfyubwtlhe62.88 [degF]Heydid Symwavepatriciali [facility]10-09-2024 14:29-0400Blood Pressure LocationMomartha Symwavepatriciali 181-0974Iwymcv-NkmczOhiohealth Dublin [facility] Hospital [facility]ive Xtmcak05-57-0272 14:29-0400Diastolic blood otovwfua94 mm[Hg][facility] [phone]-Djxjf[address] [place], [place] 3518010-09-2024 14:29-0400Heart rate66 /minVianca Glaserli [phone]-Vmmpt[address] [place] [address] Digestive Tevdan35-24-5607 14:29-0400Systolic blood gwigghin056 mm[Hg]Brightstarjane [employer] [phone]-Qroiq[address] [place] [address] Digestive Health Encounters Encounter DateEncounter TypeCare ProviderFacilityStart: 01-16-2025 End: 93-24-8164Plhsbcs encounter procedureNicamado Weaver DPM Work Phone: NO Irena Antonio PodiatryComment on above:Right Achilles tendinitis (Primary Dx); Contracture of right ankleStart: 01-16-2025 End: 51-57-4272pzwktvogzpQIUPPYGO A BROWNNot AvailableStart: 01-16-2025 End: 14-73-5145Bkmrkz flowsheetNatanael Weaver DPM Work Phone: NO [facility] Antonio PodiatryStart: 01-16-2025 End: 62-32-5647Dilmev Jaxon Weaver DPM Work Phone: NO [facility] Antonio PodiatryStart: 01-09-2025 End: 32-81-6734Jqmuhm flowsBeckiesorayamonica Weaver DPM Work Phone: noMS [facility]rena Antonio PodiatryStart: 01-09-2025 End: 81-62-6829Ktfryt Jaxon Weaver DPM Work Phone: noMS Irena Antonio PodiatryStart: 01-09-2025 End: 87-97-0684Uutsao outpatient new 30 minutesNicamado Weaver DPM Work Phone: noMS Irena Antonio PodiatryComment on above:Right Achilles tendinitis (Primary Dx); Contracture of right ankleStart: 01-09-2025 End: 95-51-4022zilriuhcaaPHNWOBPI A BROWNNot AvailableStart: 12-18-2024 End: 53-49-2333fsqwbbltzzBHBK [facility] Hospitaltart: 12-16-2024 End: 41-34-1542acvvalzgriKQNBBJI L CUTLERNot AvailableStart: 12-16-2024 End: 67-04-3962Uejkhwqx preventive med est patient 18-39 yrsTimothy L Lowgap DO Work Phone: noms [facility] Urgent CareComment on above:Physical exam, pre-employment (Primary Dx)Start: 12-14-2024 End: 08-48-9023hoasldmogxQajuew Sue Cramer ROLL TESTER-C Work Phone: [facility] Work Phone: Start: 12-14-2024 End: 24-53-8865Yqdgzwn encounter procedureBrandy Mcgovern HOSPITAL SECURITY OFFICER-[facility] Work Phone: Start: 11-03-2024 End: 48-55-4960ksbgbalpwhWaygn M. LueFacility:FTMCStart: 10-29-2024 End: 61-96-4212zgwvmxgekiHFCURH S CRAMERFacility:EU BellevueStart: 10-29-2024 End: 39-50-1787Dgyhftb encounter Kirk Sanchez [facility] start: 10-07-2024 End: 02-71-9439igfhpqwybqXssbjrd HARWOODFacility:[facility] Health and WellnessStart: 09-19-2024 End: 19-44-4444hbgzzfxefeZQLKPOQB E PERRYFacility:EU ueStart: 09-19-2024 End: 66-50-7415Otikxxq encounter procedureJENNIFER E ISAURA [facility] start: 08-08-2024 End: 86-02-7556qagswxnputGFGVUSPI E PERRYFacility:EU ueStart: 08-08-2024 End: 31-42-3855Cunjfzr encounter procedureJENNIFER E ISAURA [facility] start: 82-17-2096tqmolrrpmnTaxbq LueFacility:EU [facility] HospitalueStart: 01-18-2024 End: 57-10-0984vjogsskjihBccauny A. MouchliFacility:[facility] DHStart: 01-18-2024 End: 33-62-1802Ipvyuht encounter procedureMohamad A. Mouchli [phone]-RapmnOhiohealth [facility] Hospital [facility] Start: 01-01-2024 End: 27-79-9980frlmnaxbkuSeadtxt A. MouchliFacility:MCStart: 01-01-2024 End: 29-91-6381Zasqihh encounter procedureMohamad A. Mouchli [facility] Start: 12-19-2023 End: 83-42-1107guzvxrtnzbWylywxq A. MouchliFacility:[facility] DHStart: 12-19-2023 End: 26-33-1103Bbadtrt encounter procedureModevangchris Waters [phone]-HjytwOhiohealth Dublin [facility] Hospital [facility] Start: 02-07-2022 End: 75-54-8571ytsgvdjnuhVV LEWIS HAYFacility:U8Hdgpk: 05-18-2021 End: 03-92-4729xtlibxkiyvNWSHRY RODRIGUEZFacility:H1 Procedures DateProcedureProcedure DetailPerforming ClinicianStart: 72-24-7146Rkshmtkuqpg Mohamajane Waters ColonoscopyModevangchris Jt Esophagogastroduodenoscopic electrohydraulic lithotripsy of bezoar in stomachModevangad Jt Tonsillectomy and adenoidectomyJENNIFER ISARUA Plan of Treatment DateCare ActivityDetailAuthorStart: 02-02-2025 End: 71-08-2605Gczpzkdd Oplhcrl8402/02/2025 3:40 PM EST Clinical Support ADRIENNE Turcios [address] [place] [address] Natanael Weaver DPM [address] [address] ADRIENNE Antonio PodiatryStart: 01-16-2025 End: 86-24-8079Jzyhrij encounter procedureNOMS Irena Antonio PodiatryComment on above:Right Achilles tendinitis (Primary Dx); Contracture of right ankleStart: 01-09-2025 End: 13-37-0270Vvdvtif encounter osdgmkull35/31/2025 9:40 AM EDT Office Visit ADRIENNE Antonio Podwaldemar [address] [place] [phone] Natanael Weaver, DPM [address] [address] [place] [facility] Comment on above:[facility] Immunizations Immunization DateImmunizationNotesCare HsepahvfNnwgaszf73-31-8435ncuoilrnk, wholeMohamad Mouchli [phone]-LedwdOhiohealth [facility] Hospital [facility] Vnjupp50-33-7651 influenza virus vaccine, unspecified formulationMohamad Mouchli 185-3989Sloadk-UcwrzOhiohealth [facility] Zxrrpo13-03-3313 influenza virus vaccine, unspecified formulationMohamad Mouchli 336-4793Wikybe-PhqiqCenterville12-04-2012 influenza, wholeMohamad Mouchli 189-6089Dpwygq-QmwrhCenterville06-16-2003 hepatitis B vaccine, pediatric or pediatric/adolescent dosageMohamad Mouchli [phone]-WizgvOhiohealth Dublin [facility] Hospital [facility]ive Vzvtyx34-01-6491 hepatitis B vaccine, pediatric or pediatric/adolescent dosageMohamad Mouchli [phone]-WkcgvOhiohealth Dublin [facility] Hospital [facility]estive Dpedhj75-62-6346 hepatitis B vaccine, pediatric or pediatric/adolescent dosageMohamad Mouchli [phone]-VxfgmCenterville06-20-2001 Td(adult) unspecified formulationMohamad Mouchli [phone]-BbvolCenterville02-17-1998 measles, mumps and rubella virus vaccineMohamad Mouchli [phone]-DqqgfOhiohealth [facility] Lcljbz78-07-8711 Hib, unspecified formulationMohamad Mouchli [phone]-BdekkOhiohealth [facility] Wyetxm17-26-6707 measles, mumps and rubella virus vaccineMohamad Mouchli [phone]-JkwqaOhiohealth [facility] Payers DatePayer CategoryPayerPolicy [id number] Health [id number] [id number] 2.160.1.972910.3.57[id number] 2.0.1.037785.3.57[id number] 2.0.1.793118.3.57[id number] 2.0.1.294895.3.57[id number] 2.0.1.426192.3.57[id number] 2.0.1.706924.3.57[id number] 2.0.1.547354.3.57[id number] 2.16840.1.857014.3.57[id number] 2.160.1.930693.3.57[id number] 2.16840.1.428109.3.57[id number] 2.840.1.289217.3.57[id number] 2.16840.1.455155.3.579.2.[id number] [id number] Social History DateTypeDetailFacilityStart: 92-10-7000Jvakzia smoking statusSmoker (finding) [facility] HealthStart: 01-18-2024 End: 16-85-3747Zlbwnol smoking statusEx-smoker (finding)[facility] HealthStart: 46-51-7676Xswzemz smoking statusNeverOhiohealth [facility] Digestive HealthSex Assigned At [facility] Hospitalexual OrientationExecutive [facility] start: 14-53-1663LliKsai (finding)[facility] Hospitaltart: [phone] Assigned At [facility] CampusTobacco smoking status NHISTobacco smoking consumption unknownNOMS HealthcareStart: 43-78-5720Zas assigned at [facility] centerNot on fileNOMN Healthcare History of tobacco useCigarette SmokerNOMN Healthcare Functional Status JrxwJovffsduivFlblqqIptfhsyj06-87-1639Xpqppcitfm StatusN/[facility] Ryokkr92-85-5884Hzkcvecthh StatusN/[facility]10-09-2024Functional StatusN/[facility] Health Clinical Notes 01-01-2024 to 01-16-2025 Note Date & EgugUkoaHbjyhqze87-49-4805 History of Present illness Narrative* Natanael Weaver, DPM - 01/16/2025 3:40 PM EST Patient: Antoine Garcia : 1985 PCP: No primary care provider on file. SUBJECTIVE This is a 39 y.o. male that presents today for a follow up of right achilles tendonitis. Pt has been using a CAM walker and taking a medrol pack with ice to his heel with slight improvement. Patient rates pain a 10. Allergies: Allergies[1] Past Medical History: Medical History[2] Medications: Current Medications[3] Social History: Social History Socioeconomic History Marital status: Unmarried Spouse name: Not on file Number of children: Not on file Years of education: Not on file Highest education level: Not on file Occupational History Not on file Tobacco Use Smoking status: Former Types: Cigarettes Smokeless tobacco: Not on file Substance and Sexual Activity Alcohol use: Not on file Drug use: Not on file Sexual activity: Not on file Other Topics Concern Not on file Social History Narrative Not on file Social Drivers of Health Financial Resource Strain: Not on file Food Insecurity: Not on file Transportation Needs: Not on file Physical Activity: Not on file Stress: Not on file Social Connections: Not on file Intimate Partner Violence: Not on file Housing Stability: Not on file ROS: Gastrointestinal: denies abdominal pain, ulcers, or changes in appetite or bowel habits Musculoskeletal: positive hx of arthritis, loss of strength, with positive history of back pain Cardiovascular: denies CP, palpitations, irregular rhythms OBJECTIVE LE EXAM: DERM: Positive hair growth to b/l feet with good skin turgor noted. Negative openings in skin VASC: Palpable pedal pulsed b/l with warm to cool tibia to toes b/l NEURO: Gross sensation intact digits 1-10 and b/l feet ORTHO: +5/5 DF/PF/IN/EV right, +5/5 DF/PF/IN/EV left. 20 degrees inversion and 10 degrees eversion STJ b/l. Ankle ROM less than 10 degrees b/l. positive pain on palpation to right posterolateral Achilles near insertion of the Achilles tendon to the right heel with negative palpable Brandon XRAY: ASSESSMENT 1. Right Achilles tendinitis 2. Contracture of right ankle PLAN Patient may use cam walker p.r.n. Pt to take nsaids as needed PRN pain Recommended to apply ice to affected areas for 20 minutes, twice daily. Ice should not be applied directly to skin. Pt was given steroid injection to the right plantar lateral and plantar medial Achilles fascial junction near posterolateral and posteromedial heel region and Achillesunder US guidance with visualization of injected fluid into area of concern per imaging. Injection consisted of a 2:1 mixture of xylocaine 2%plain and dexathesone 4mg for a total of 3ccs. Informed pt of risks and benefits of procedure including infection,damage or rupture to soft tissuestructures and steroid flare. This is the patients 1st injection Pt understood and consented. Natanael Weaver DPM [1] Allergies Allergen Reactions Penicillins Hives [2] No past medical history on file. [3] Current Outpatient Medications: gabapentin (Neurontin) 300 MG capsule, Take 300 mg by mouth in the morning and 300 mg before bedtime., Disp: , Rfl: methylPREDNISolone (Medrol Dospak) 4 MG tablets, Follow schedule on MEDROL PACK package instructions to be used as directed, Disp: 21 tablet, Rfl: 0 pantoprazole (ProtoNix) 40 MG EC tablet, TAKE ONE TABLET BY MOUTH ONCE DAILY 30, Disp: , Rfl: tamsulosin (Flomax) 0.4 MG 24 hr capsule, Take 0.4 mg by mouth Daily, Disp: , Rfl: documented in this encounterOzarks Medical CenterKaxelxflbd35-73-6061 NoteChief complaint/HPI/Plan: The patient is a 39-year-old male seen in the evaluation of left scrotal pain. He has had scrotal pain for the past few months. He denies gross hematuria. He had an outside scrotal ultrasound performed in July that showed no evidence of testicular mass or torsion. There was a varicocele noted. On physical examination today his testes are normal without mass. There is no obvious palpable varicocele. For the pain the patient has been taking gabapentin without much improvement. A prescription for Toradol was provided. He will contact us if the pain persists or worsens. I have personally reviewed the imaging and lab work relevant to the patient visit. Diagnosis: Scrotal pain Vitals: 12/18/24 1005 BP: 149/81 Pulse: 83 Temp: 36.6 ???C (97.9 ???F) Exam: Constitutional: Patient is in no acute distress Psychiatric: Normal affect HEENT: No head or neck abnormalities or jaundice Pulmonary: Patient is not laboring to breathe Neurologic: No obvious neurologic abnormalities Extremities: No deformity Cardiovascular: No obvious cyanosis of the extremities Integumentary: No obvious rash Genitourinary: Testes are normal without mass. No obvious large varicocele Problem List[1] Medical History[2] Surgical History[3] Medications Ordered Prior to Encounter[4] Allergies[5] Social History Socioeconomic History Marital status: Spouse name: Not on file Number of children: Not on file Years of education: Not on file Highest education level: Not on file Occupational History Not on file Tobacco Use Smoking status: Former Types: Cigarettes Passive exposure: Past Smokeless tobacco: Former Tobacco comments: Yrs ago for a short time Substance and Sexual Activity Alcohol use: Yes Alcohol/week: 2.0 standard drinks of alcohol Types: 1 Cans of beer, 1 Shots of liquor per week Comment: per month Drug use: Yes Types: Marijuana, Cocaine, Heroin, Methamphetamines Comment: marijuana currently all ofthers in the past Sexual activity: Not on file Other Topics Concern Not on file Social History Narrative Not on file Social Drivers of Health Financial Resource Strain: Not on file Food Insecurity: Not on file Transportation Needs: Not on file Physical Activity: Not on file Stress: Not on file Social Connections: Not on file Intimate Partner Violence: Not on file Housing Stability: Not on file Family History[6] Renny Roy MD [1] There is no problem list on file for this patient. [2] No past medical history on file. [3] No past surgical history on file. [4] No current outpatient medications on file prior to visit. No current facility-administered medications on file prior to visit. [5] Not on File [6] No family history on file.[facility]10-07-2025 History of Present illness Narrative* Suzie Ashly Carr, DO - 12/16/2024 4:30 PM EDT Images from the original note were not included. [address], [address] [place], [address] P: [phone] F: [phone] HPI HPI: Historian of HPI: patient Pt presents today for a pre-employment physical exam. Pt denies acute problems. ROS A complete system ROS was performed and negative aside from the pertinent positives noted in the HPI and PE. PHYSICAL EXAM Physical Exam Constitutional: General: He is not in acute distress. Appearance: He is not ill-appearing. HENT: Head: Normocephalic. Cardiovascular: Rate and Rhythm: Normal rate and regular rhythm. Heart sounds: No murmur heard. Pulmonary: Effort: Pulmonary effort is normal. Breath sounds: Normal breath sounds. No wheezing. Abdominal: General: Abdomen is flat. There is no distension. Tenderness: There is no abdominal tenderness. Musculoskeletal: General: No deformity. Normal range of motion. Cervical back: Normal range of motion. No tenderness. Lymphadenopathy: Cervical: No cervical adenopathy. Skin: General: Skin is warm and dry. Neurological: General: No focal deficit present. Mental Status: He is alert and oriented to person, place, and time. Psychiatric: Mood and Affect: Mood normal. Behavior: Behavior normal. Thought Content: Thought content normal. Judgment: Judgment normal. TREATMENT PLAN 1. Physical exam, pre-employment (Primary) Normal PE today May work without restrictions Wear hearing protection documented in this encounterOzarks Medical CenterWjwwfvkhho39-37-9731 History of Present illness Narrative* Natanael Weaver DPM - 01/09/2025 9:40 AM EDT Patient: Antoine Garcia : 1985 PCP: No primary care provider on file. SUBJECTIVE This is a 39 y.o. male that presents today for a chief complaint of right posterior heel pain for the past month and states it is up to a 10 on 10 but does no pain today. He states painful when bending and stepping up stairs and denies any trauma. Allergies: Allergies[1] Past Medical History: Medical History[2] Medications: Current Medications[3] Social History: Social History Socioeconomic History Marital status: Unmarried Spouse name: Not on file Number of children: Not on file Years of education: Not on file Highest education level: Not on file Occupational History Not on file Tobacco Use Smoking status: Former Types: Cigarettes Smokeless tobacco: Not on file Substance and Sexual Activity Alcohol use: Not on file Drug use: Not on file Sexual activity: Not on file Other Topics Concern Not on file Social History Narrative Not on file Social Drivers of Health Financial Resource Strain: Not on file Food Insecurity: Not on file Transportation Needs: Not on file Physical Activity: Not on file Stress: Not on file Social Connections: Not on file Intimate Partner Violence: Not on file Housing Stability: Not on file ROS: Gastrointestinal: denies abdominal pain, ulcers, or changes in appetite or bowel habits Musculoskeletal: positive hx of arthritis, loss of strength, with positive history of back pain Cardiovascular: denies CP, palpitations, irregular rhythms OBJECTIVE LE EXAM: DERM: Positive hair growth to b/l feet with good skin turgor noted. Negative openings in skin VASC: Palpable pedal pulsed b/l with warm to cool tibia to toes b/l NEURO: Gross sensation intact digits 1-10 and b/l feet ORTHO: +5/5 DF/PF/IN/EV right, +5/5 DF/PF/IN/EV left. 20 degrees inversion and 10 degrees eversion STJ b/l. Ankle ROM less than 10 degrees b/l. Positive pain on palpation to right posterolateral Achilles near insertion of the Achilles tendon to the right heel with negative palpable Brandon XRAY: US: DIAGNOSTIC US REPORT: Verbal order for ultrasound today The achilles tendon of the rightfoot/leg were scanned today with a 12 MHz linear probe in the transverse/sagital planes. Images were obtained. FINDINGS: US examination in the longitudinal and transverse images of the achilles tendon insertion to calcaneus demonstrates a small amount of hypo-echoic density anterior to achilles insertion point on calcaneus. IMPRESSION: US findings of right Retrocalcaneal bursitis ASSESSMENT 1. Right Achilles tendinitis 2. Contracture of right ankle PLAN Patient to return to walking boot and Cam walker Prescription today for Medrol pack Recommended to apply ice to affected areas for 20 minutes, twice daily. Ice should not be applied directly to skin. Reviewed ultrasound today with patient Natanael Weaver DPM [1] Allergies Allergen Reactions Penicillins Hives [2] History reviewed. No pertinent past medical history. [3] Current Outpatient Medications: gabapentin (Neurontin) 300 MG capsule, Take 300 mg by mouth in the morning and 300 mg before bedtime., Disp: , Rfl: pantoprazole (ProtoNix) 40 MG EC tablet, TAKE ONE TABLET BY MOUTH ONCE DAILY 30, Disp: , Rfl: tamsulosin (Flomax) 0.4 MG 24 hr capsule, Take 0.4 mg by mouth Daily, Disp: , Rfl: documented in this encounterOzarks Medical [id number] History of Present illness Narrative* aNtanael Weaver DPM - 01/09/2025 9:40 AM EDT Patient: Antoine Garcia : 1985 PCP: No primary care provider on file. SUBJECTIVE This is a 39 y.o. male that presents today for a chief complaint of right posterior heel pain for the past month and states it is up to a 10 on 10 but does no pain today. He states painful when bending and stepping up stairs and denies any trauma. Allergies: Allergies[1] Past Medical History: Medical History[2] Medications: Current Medications[3] Social History: Social History Socioeconomic History Marital status: Unmarried Spouse name: Not on file Number of children: Not on file Years of education: Not on file Highest education level: Not on file Occupational History Not on file Tobacco Use Smoking status: Former Types: Cigarettes Smokeless tobacco: Not on file Substance and Sexual Activity Alcohol use: Not on file Drug use: Not on file Sexual activity: Not on file Other Topics Concern Not on file Social History Narrative Not on file Social Drivers of Health Financial Resource Strain: Not on file Food Insecurity: Not on file Transportation Needs: Not on file Physical Activity: Not on file Stress: Not on file Social Connections: Not on file Intimate Partner Violence: Not on file Housing Stability: Not on file ROS: Gastrointestinal: denies abdominal pain, ulcers, or changes in appetite or bowel habits Musculoskeletal: positive hx of arthritis, loss of strength, with positive history of back pain Cardiovascular: denies CP, palpitations, irregular rhythms OBJECTIVE LE EXAM: DERM: Positive hair growth to b/l feet with good skin turgor noted. Negative openings in skin VASC: Palpable pedal pulsed b/l with warm to cool tibia to toes b/l NEURO: Gross sensation intact digits 1-10 and b/l feet ORTHO: +5/5 DF/PF/IN/EV right, +5/5 DF/PF/IN/EV left. 20 degrees inversion and 10 degrees eversion STJ b/l. Ankle ROM less than 10 degrees b/l. Positive pain on palpation to right posterolateral Achilles near insertion of the Achilles tendon to the right heel with negative palpable Brandon XRAY: US: DIAGNOSTIC US REPORT: Verbal order for ultrasound today The achilles tendon of the rightfoot/leg were scanned today with a 12 MHz linear probe in the transverse/sagital planes. Images were obtained. FINDINGS: US examination in the longitudinal and transverse images of the achilles tendon insertion to calcaneus demonstrates a small amount of hypo-echoic density anterior to achilles insertion point on calcaneus. IMPRESSION: US findings of right Retrocalcaneal bursitis ASSESSMENT 1. Right Achilles tendinitis 2. Contracture of right ankle PLAN Patient to return to walking boot and Cam walker Prescription today for Medrol pack Recommended to apply ice to affected areas for 20 minutes, twice daily. Ice should not be applied directly to skin. Reviewed ultrasound today with patient Natanael Weaver DPM [1] Allergies Allergen Reactions Penicillins Hives [2] History reviewed. No pertinent past medical history. [3] Current Outpatient Medications: gabapentin (Neurontin) 300 MG capsule, Take 300 mg by mouth in the morning and 300 mg before bedtime., Disp: , Rfl: pantoprazole (ProtoNix) 40 MG EC tablet, TAKE ONE TABLET BY MOUTH ONCE DAILY 30, Disp: , Rfl: tamsulosin (Flomax) 0.4 MG 24 hr capsule, Take 0.4 mg by mouth Daily, Disp: , Rfl: documented in this encounterOzarks Medical [id number] NotePatient Education Cystoscopy ??? Voiding after the procedure: there may be some pain, burning, urgency, frequency and blood tinged urine following the procedure. These symptoms usually resolve within 2-5 days. Drink the amount of fluid it takes to keep the urine pink to yellow or clear in color. Drinking enough water and fluids will help to ease any discomfort after your procedure. ??? If you are having problems that seem out of the ordinary, please call. ??? If unable to contact your physician and you feel it is an emergency, go to the nearest emergency room or call 911 ??? Diet ??? you may resume your normal diet. ??? Activity ??? you may resume your normal activities ??? Call if you have a fever over 100 degrees.[facility] 10-29-2024 Hospital Discharge instructions Patient Education 10/29/2024 11:02:27 Varicocele Varicocele A varicocele is a swelling of veins in the scrotum. The scrotum is the sac that contains the testicles. Varicoceles can occur on either side of the scrotum, but they are more common on the left side.They occur most often in teenage boys and young men. In most cases, varicoceles are not a serious problem. They are usually small and painless and do not require treatment. Tests may be done to confirm the diagnosis. Treatment may be needed if: A varicocele is large, causes a lot of pain, or causes pain when exercising. Varicoceles are found on both sides of the scrotum. A varicocele causes a decrease in the size of the testicle in a growing adolescent. A varicocele makes it hard to get someone (infertility). What are the causes? This condition is caused by valves in the veins not working properly. Valves in the veins help to return blood from the scrotum and testicles to the heart. If these valves do not work well, blood flows backward and backs up into the veins, which causes the veins to swell. This is similar to what happens when varicose veins form in the leg. What are the signs or symptoms? Most varicoceles do not cause any symptoms. If symptoms do occur, they may include: Swelling on one side of the scrotum. The swelling may be more obvious when you are standing up. A lumpy feeling in the scrotum. A heavy feeling on one side of the scrotum. A dull ache in the scrotum, especially after exercise or prolonged standing or sitting. Slower growth or reduced size of the testicle on the side of the varicocele. This happens in young males. Infertility. This can occur if the testicle does not grow normally or if the condition causes problems with the sperm, such as a low sperm count or sperm that are not able to reach the egg. How is this diagnosed? This condition is diagnosed based on: Your medical history. A physical exam. Your health care provider may check and feel the scrotum area to check for swollenor enlarged veins. An ultrasound. This may be done to confirm the diagnosis and to help rule out other causes of the swelling. How is this treated? Treatment is usually not needed for this condition. If you have any pain, your provider may give you medicine to help relieve it. Your provider may need to do tests to make sure that your varicocele does not cause problems. If further treatment is needed, you may have one of these procedures: Varicocelectomy. This is surgery to tie off the swollen veins so that the flow of blood goes to other veins instead. Embolization. This procedure uses a soft tube (catheter) to place metal coils or other devices to block the veins. This cuts off the blood flow to the swollen veins. Follow these instructions at home: Take jhdn-qya-vncxkgq and prescription medicines only as told by your provider. Wear supportive underwear. Use an athletic supporter when doing sports activities. Contact a health care provider if: Your pain is increasing. You have redness in the affected area. Your testicle is enlarged, swollen, or painful. You have swelling that does not get better when you are lying down. One of your testicles is smaller than the other. You develop swelling in your legs. Get help right away if: You have difficulty breathing. This symptom may be an emergency. Get help right away. Call 911. Do not wait to see if the symptom will go away. Do not drive yourself to the hospital. This information is not intended to replace advice given to you by your health care provider. Make sure you discuss any questions you have with your health care provider. Document Revised: 11/22/2022 Document Reviewed: 11/22/2022 [employer] Patient Education 2023 [employer]. 10/29/2024 11:02:21 Cystoscopy Cystoscopy Cystoscopy is a procedure that is used to help diagnose and sometimes treat conditions that affect the lower urinary tract. The lower urinary tract includes the bladder and the urethra. The urethra is the tube that drains urine from the bladder. Cystoscopy is done using a thin, tube-shaped instrument with a light and camera at the end (cystoscope). The cystoscope may be hard or flexible, depending on the goal of the procedure. The cystoscope is inserted through the urethra, into the bladder. Cystoscopy may be recommended if you have: Urinary tract infections that keep coming back. Blood in the urine (hematuria). An inability to control when you urinate (urinary incontinence) or an overactive bladder. Unusual cells found in a urine sample. A blockage in the urethra, such as a urinary stone. Painful urination. An abnormality in the bladder found during an intravenous pyelogram (IVP) or CT scan. Cystoscopy may also be done to remove a sample of tissue to be examined under a microscope (biopsy). Tell a health care provider about: Any allergies you have. All medicines you are taking, including vitamins, herbs, eye drops, creams, and dttg-raw-hvywhlm medicines. Any problems you or family members have had with anesthetic medicines. Any blood disorders you have. Any surgeries you have had. Any medical conditions you have. Whether you are or may be . What are the risks? Generally, this is a safe procedure. However, problems may occur, including: Infection. Bleeding. Allergic reactions to medicines. Damage to other structures or organs. What happens before the procedure? Medicines Ask your health care provider about: Changing or stopping your regular medicines. This is especially important if you are taking diabetes medicines or blood thinners. Taking medicines such as aspirin and ibuprofen. These medicines can thin your blood. Do not take these medicines unless your health care provider tells you to take them. Taking wzgm-bup-ekkvhxg medicines, vitamins, herbs, and supplements. Tests You may have an exam or testing, such as: X-rays of the bladder, urethra, or kidneys. CT scan of the abdomen or pelvis. Urine tests to check for signs of infection. General instructions Follow instructions from your health care provider about eating or drinking restrictions. Ask your health care provider what steps will be taken to help prevent infection. These steps may include: ?Washing skin with a germ-killing soap. ?Taking antibiotic medicine. Plan to have a responsible adult take you home from the hospital or clinic. What happens during the procedure? You will be given one or more of the following: ?A medicine to help you relax (sedative). ?A medicine to numb the area (local anesthetic). The area around the opening of your urethra will be cleaned. The cystoscope will be passed through your urethra into your bladder. Germ-free (sterile) fluid will flow through the cystoscope to fill your bladder. The fluid will stretch your bladder so that your health care provider can clearly examine your bladder choudhury. Your doctor will look at the urethra and bladder. Your doctor may take a biopsy or remove stones. The cystoscope will be removed, and your bladder will be emptied. The procedure may vary among health care providers and hospitals. What can I expect after the procedure? After the procedure, it is common to have: Some soreness or pain in your abdomen and urethra. Urinary symptoms. These include: ?Mild pain or burning when you urinate. Pain should stop within a few minutes after you urinate. This may last for up to 1 week. ?A small amount of blood in your urine for several days. ?Feeling like you need to urinate but producing only a small amount of urine. Follow these instructions at home: Medicines Take umdb-sua-mthikfg and prescription medicines only as told by your health care provider. If you were prescribed an antibiotic medicine, take it as told by your health care provider. Do notstop taking the antibiotic even if you start to feel better. General instructions Return to your normal activities as told by your health care provider. Ask your health care provider what activities are safe for you. If you were given a sedative during the procedure, it can affect you for several hours. Do not drive or operate machinery until your health care provider says that it is safe. Watch for any blood in your urine. If the amount of blood in your urine increases, call your healthcare provider. Follow instructions from your health care provider about eating or drinking restrictions. If a tissue sample was removed for testing (biopsy) during your procedure, it is up to you to get your test results. Ask your health care provider, or the department that is doing the test, when yourresults will be ready. Drink enough fluid to keep your urine pale yellow. Keep all follow-up visits. This is important. Contact a health care provider if: You have pain that gets worse or does not get better with medicine, especially pain when you urinate. You have trouble urinating. You have more blood in your urine. Get help right away if: You have blood clots in your urine. You have abdominal pain. You have a fever or chills. You are unable to urinate. Summary Cystoscopy is a procedure that is used to help diagnose and sometimes treat conditions that affect the lower urinary tract. Cystoscopy is done using a thin, tube-shaped instrument with a light and camera at the end. After the procedure, it is common to have some soreness or pain in your abdomen and urethra. Watch for any blood in your urine. If the amount of blood in your urine increases, call your healthcare provider. If you were prescribed an antibiotic medicine, take it as told by your health care provider. Do notstop taking the antibiotic even if you start to feel better. This information is not intended to replace advice given to you by your health care provider. Make sure you discuss any questions you have with your health care provider. Document Revised: 11/09/2021 Document Reviewed: 10/08/2020 [employer] Patient Education 2023 [employer]. Follow Up Care 10/17/2024 15:06:50 With:Daniel LAST, BASIA Kincaid, URO Address: [address], [place] [phone] When: Unknown Comments:ashly arechiga, referral to [facility] for varicocelectomy [facility] Tamanna 08-20-2025 NotePatient Education Urology Varicocele A varicocele is a swelling of veins in the scrotum. The scrotum is the sac that contains the testicles. Varicoceles can occur on either side of the scrotum, but they are more common on the left side.They occur most often in teenage boys and young men. In most cases, varicoceles are not a serious problem. They are usually small and painless and do not require treatment. Tests may be done to confirm the diagnosis. Treatment may be needed if: ??? A varicocele is large, causes a lot of pain, or causes pain when exercising. ??? Varicoceles are found on both sides of the scrotum. ??? A varicocele causes a decrease in the size of the testicle in a growing adolescent. ??? A varicocele makes it hard to get someone (infertility). What are the causes? This condition is caused by valves in the veins not working properly. Valves in the veins help to return blood from the scrotum and testicles to the heart. If these valves do not work well, blood flows backward and backs up into the veins, which causes the veins to swell. This is similar to what happens when varicose veins form in the leg. What are the signs or symptoms? Most varicoceles do not cause any symptoms. If symptoms do occur, they may include: ??? Swelling on one side of the scrotum. The swelling may be more obvious when you are standing up. ??? A lumpy feeling in the scrotum. ??? A heavy feeling on one side of the scrotum. ??? A dull ache in the scrotum, especially after exercise or prolonged standing or sitting. ??? Slower growth or reduced size of the testicle on the side of the varicocele. This happens in young males. ??? Infertility. This can occur if the testicle does not grow normally or if the condition causes problems with the sperm, such as a low sperm count or sperm that are not able to reach the egg. How is this diagnosed? This condition is diagnosed based on: ??? Your medical history. ??? A physical exam. Your health care provider may check and feel the scrotum area to check for swollen or enlarged veins. ??? An ultrasound. This may be done to confirm the diagnosis and to help rule out other causes of the swelling. How is this treated? Treatment is usually not needed for this condition. If you have any pain, your provider may give you medicine to help relieve it. Your provider may need to do tests to make sure that your varicocele does not cause problems. If further treatment is needed, you may have one of these procedures: ??? Varicocelectomy. This is surgery to tie off the swollen veins so that the flow of blood goes toother veins instead. ??? Embolization. This procedure uses a soft tube (catheter) to place metal coils or other devices to block the veins. This cuts off the blood flow to the swollen veins. Follow these instructions at home: ??? Take mexa-miw-szsbbwk and prescription medicines only as told by your provider. ??? Wear supportive underwear. ??? Use an athletic supporter when doing sports activities. Contact a health care provider if: ??? Your pain is increasing. ??? You have redness in the affected area. ??? Your testicle is enlarged, swollen, or painful. ??? You have swelling that does not get better when you are lying down. ??? One of your testicles is smaller than the other. ??? You develop swelling in your legs. Get help right away if: ??? You have difficulty breathing. This symptom may be an emergency. Get help right away. Call 911. ??? Do not wait to see if the symptom will go away. ??? Do not drive yourself to the hospital. This information is not intended to replace advice given to you by your health care provider. Make sure you discuss any questions you have with your health care provider. Document Revised: 11/22/2022 Document Reviewed: 11/22/2022 Elsevier Patient Education ? 2023 [employer] Cystoscopy Cystoscopy is a procedure that is used to help diagnose and sometimes treat conditions that affect the lower urinary tract. The lower urinary tract includes the bladder and the urethra. The urethra is the tube that drains urine from the bladder. Cystoscopy is done using a thin, tube-shaped instrument with a light and camera at the end (cystoscope). The cystoscope may be hard or flexible, depending on the goal of the procedure. The cystoscope is inserted through the urethra, into the bladder. Cystoscopy may be recommended if you have: ??? Urinary tract infections that keep coming back. ??? Blood in the urine (hematuria). ??? An inability to control when you urinate (urinary incontinence) or an overactive bladder. ??? Unusual cells found in a urine sample. ??? A blockage in the urethra, such as a urinary stone. ??? Painful urination. ??? An abnormality in the bladder found during an intravenous pyelogram (IVP) or CT scan. Cystoscopy may also be done to remove a sample of tissue to be examined under a microscope (biopsy). Tell a (more content not included)...[facility]07-11-2025 Hospital Discharge instructions Patient Education 09/19/2024 15:03:00 Benign Prostatic Hyperplasia Benign Prostatic Hyperplasia Benign prostatic hyperplasia (BPH) is an enlarged prostate gland that is caused by the normal agingprocess. The prostate may get bigger as a man gets older. The condition is not caused by cancer. The prostate is a walnut-sized gland that is involved in the production of semen. It is located in front of the rectum and below the bladder. The bladder stores urine. The urethra carries stored urine ou t of the body. An enlarged prostate can press on the urethra. This can make it harder to pass urine. The buildup of urine in the bladder can cause infection. Back pressure and infection may progress to bladder damage and kidney (renal) failure. What are the causes? This condition is part of the normal aging process. However, not all men develop problems from thiscondition. If the prostate enlarges away from the [...] urethra. Follow these instructions at home: Take illm-qiy-zfrdsfa and prescription medicines only as told by [...] provider. Document Revised: 09/14/2021 Document Reviewed: 09/14/2021 [employer] Patient Education 2023 [employer]. Follow Up Care 08/08/2024 09:51:53 With:ISAURA TAYLOR, JUDITH Terry, URL Address: [place] [address] When:Within 3 Month(s) [facility] 07-11-2025 NotePatient Education Urology Benign Prostatic Hyperplasia Benign prostatic hyperplasia (BPH) is an enlarged prostate gland that is caused by the normal agingprocess. The prostate may get bigger as a man gets older. The condition is not caused by cancer. The prostate is a walnut-sized gland that is involved in the production of semen. It is located in front of the rectum and below the bladder. The bladder stores urine. The urethra carries stored urine ou t of the body. An enlarged prostate can press on the urethra. This can make it harder to pass urine. The buildup of urine in the bladder can cause infection. Back pressure and infection may progress to bladder damage and kidney (renal) failure. What are the causes? This condition is part of the normal aging process. However, not all men develop problems from thiscondition. If the prostate enlarges away from the [...] this procedure, a tool is inserted through theopening at the tip of the penis (urethra). [...] procedure uses radio frequencies to destroy and removea small amount of prostate tissue. ? Interstitial laser coagulation (ILC). This procedure uses a laser to destroy and remove a small amount of prostate tissue. ? Transurethral electrovaporization (TUVP). This procedure uses electrodes to destroy and remove a small amount of prostate tissue. ? Prostatic urethral lift. This procedure inserts an implant to push the lobes of the prostate awayfrom the urethra. Follow these instructions at home: ??? Take ahzo-xcw-sjlvnit and prescription medicines only as told by [...] symptoms do not get (more content not included)...[facility]05-30-2025 Hospital Discharge instructions Patient Education 08/08/2024 13:32:41 Benign Prostatic Hyperplasia Benign Prostatic Hyperplasia Benign prostatic hyperplasia (BPH) is an enlarged prostate gland that is caused by the normal agingprocess. The prostate may get bigger as a man gets older. The condition is not caused by cancer. The prostate is a walnut-sized gland that is involved in the production of semen. It is located in front of the rectum and below the bladder. The bladder stores urine. The urethra carries stored urine ou t of the body. An enlarged prostate can press on the urethra. This can make it harder to pass urine. The buildup of urine in the bladder can cause infection. Back pressure and infection may progress to bladder damage and kidney (renal) failure. What are the causes? This condition is part of the normal aging process. However, not all men develop problems from thiscondition. If the prostate enlarges away from the [...] urethra. Follow these instructions at home: Take dmrb-wto-mmvdcjf and prescription medicines only as told by [...] provider. Document Revised: 09/14/2021 Document Reviewed: 09/14/2021 [employer] Patient Education 2023 [employer]. Follow Up Care 08/07/2024 09:13:16 With:ISAURA TAYLOR, JUDITH Terry, URL Address: [place] [address] Business (1) When:6 weeks [facility] 05-30-2025 NotePatient Education Urology Benign Prostatic Hyperplasia Benign prostatic hyperplasia (BPH) is an enlarged prostate gland that is caused by the normal agingprocess. The prostate may get bigger as a man gets older. The condition is not caused by cancer. The prostate is a walnut-sized gland that is involved in the production of semen. It is located in front of the rectum and below the bladder. The bladder stores urine. The urethra carries stored urine ou t of the body. An enlarged prostate can press on the urethra. This can make it harder to pass urine. The buildup of urine in the bladder can cause infection. Back pressure and infection may progress to bladder damage and kidney (renal) failure. What are the causes? This condition is part of the normal aging process. However, not all men develop problems from thiscondition. If the prostate enlarges away from the [...] this procedure, a tool is inserted through theopening at the tip of the penis (urethra). [...] procedure uses radio frequencies to destroy and removea small amount of prostate tissue. ? Interstitial laser coagulation (ILC). This procedure uses a laser to destroy and remove a small amount of prostate tissue. ? Transurethral electrovaporization (TUVP). This procedure uses electrodes to destroy and remove a small amount of prostate tissue. ? Prostatic urethral lift. This procedure inserts an implant to push the lobes of the prostate awayfrom the urethra. Follow these instructions at home: ??? Take aqqu-lzk-tmswlbx and prescription medicines only as told by [...] symptoms do not get (more content not included)...[facility]10-24-2024 NoteProgress Note-Physician Patient: ANTOINE GARCIA Age: 38 years Sex: Male : 1985 [...] list: All Problems Vomiting / SNOMED CT 5801303234 / Confirmed Upper abdominal pain / SNOMED CT 685520443 / Confirmed Smoker.. / SNOMED CT [id number] / Confirmed Added secondary to documentation in Social History. Irritable bowel syndrome / SNOMED CT 24994460 / Confirmed History of colon polyps / SNOMED CT 6835968356 / Confirmed GERD with esophagitis / SNOMED CT 156435881 / Confirmed Abdominal cramping / SNOMED CT 320553455 / Confirmed Family history of rectal cancer / SNOMED CT 0533523104 / Confirmed Diarrhea / SNOMED CT 524174569 / Confirmed Gas pain / SNOMED CT 580576624 / Confirmed Bloating / SNOMED CT 400704684 / Confirmed Histories Procedure history: Colonoscopy ([id number]). EGD (esophagogastroduodenoscopic) electrohydraulic lithotripsy of bezoar in stomach ([id number]). Social History Social & Psychosocial Habits Alcohol [...] adequate air exchange. Cardiovascular: Regular rhythm. Plan [place] [employer] Anesthesiologists (ASA) physical status classification: Class II. Anesthetic Preoperative Plan: Anesthesia General.[facility] Comment on above:Result Comment: Electronically Signed By: Chilo Fuller Jr, DO\.br\Date and Time Signed: 01/03/24 07:28 [id number] NoteProgress Note-Physician Patient: ANTOINE GARCIA Age: 38 years Sex: Male : 1985 [...] Discharge when meets criteria ( To home ).[facility]:Result Comment: Electronically Signed By: Chilo Fuller Jr, DO\.br\Date and Time Signed: 01/03/24 07:27 EDT 01-01-2024 Hospital Discharge instructions Patient Education 01/01/2024 11:23:18 Hemorrhoids, Huhk-an-Stxk Hemorrhoids Hemorrhoids are swollen veins that may [...] Follow these instructions at home: Medicines Take iwfj-pyd-gwktfig and prescription medicines only as told by [...] 3 4 times a day. You may dothis in a bathtub. You may also use [...] provider. Document Revised: 11/08/2022 Document Reviewed: 11/08/2022 [employer] Patient Education 2023 [employer]. 01/01/2024 11:23:16 Diverticulosis MAGR (CUSTOM) Diverticulosis Many [...] colon so that bowel contents can move througheasily. You should eat 20 to 35 grams [...] corn, and seeds. This has not been foundto be true. If you find that certain foods create cramping or bloating, avoid that food. Foods high in fiber include: Fresh fruits, fresh vegetables, legumes (beans), whole wheat bread, bran muffins or cereal, and nuts. See the table below for examples of high fiber foods. Remember, your goal is 20- 35 grams per day. Amount of fiber in different foods Food Serving Grams of fiber Fruits Apple (with skin) 1 medium apple 4.4 Banana 1 medium banana 3.1 Oranges 1 orange 3.1 Prunes 1 cup, pitted 12.4 Juices Apple, unsweetened, w/added ascorbic acid 1 cup 0.5 Grapefruit, white, canned, sweetened 1 cup 0.2 Grape, unsweetened, w/added ascorbic acid 1 cup 0.5 [place] 1 cup 0.7 Vegetables Cooked Green beans 1 cup 4.0 Carrots 1/2 cup sliced 2.3 Peas 1 cup 8.8 Potato (baked, with skin) 1 medium potato 3.8 Raw Baxter (with peel) 1 cucumber 1.5 Lettuce 1 [...] 8.7 Peanuts 1/2 cup 7.9 Chart from [facility] 2013. SEEK IMMEDIATE MEDICAL CARE IF: You [...] of Agriculture (USDA) National Nutrient Database at: http://www.nal.usda.gov/fnic/foodcomp/search/ Created using data from the USDA National Nutrient Database for Standard Reference. Available at http://www.nal.usda.gov/fnic/foodcomp/search/. Information adapted from: ExitCare Patient Information 2009 [employer]. [facility] 2012 [email or web address]/contents/ivhiaibmudxs-ybioekp-jftwzi-the-basics 01/01/2024 11:23:13 Colonoscopy, Care After Surgery Salizzy (CUSTOM) Colonoscopy Care After Surgery Please read the instructions outlined below and refer to this sheet in the next few weeks. These discharge instructions provide you with general information on caring for yourself after you leave thespital. Your doctor may also give you specific [...] Heavy or fried foods are harder to digestand may make you feel nauseated (sick to [...] severe or gets worse throughout the day. [facility] 10-22-2024 NotePatient Education - Text Diverticulosis Many people have [...] colon so that bowel contents can move througheasily. You should eat 20 to 35 grams [...] corn, and seeds. This has not been foundto be true. If you find that certain foods create cramping or bloating, avoid that food. Foods high in fiber include: Fresh fruits, fresh vegetables, legumes (beans), whole wheat bread, bran muffins or cereal, and nuts. See the table below for examples of high fiber foods. Remember, your goal is 20- 35 grams per day. Amount of fiber in different foods Food Serving Grams of fiber Fruits Apple (with skin) 1 medium apple 4.4 Banana 1 medium banana 3.1 Oranges 1 orange 3.1 Prunes 1 cup, pitted 12.4 Juices Apple, unsweetened, w/added ascorbic acid 1 cup 0.5 Grapefruit, white, canned, sweetened 1 cup 0.2 Grape, unsweetened, w/added ascorbic acid 1 cup 0.5 [place] 1 cup 0.7 Vegetables Cooked Green beans 1 cup 4.0 Carrots 1/2 cup sliced 2.3 Peas 1 cup 8.8 Potato (baked, with skin) 1 medium potato 3.8 Raw [place] (with peel) 1 cucumber 1.5 Lettuce 1 [...] 8.7 Peanuts 1/2 cup 7.9 Chart from [facility] 2013. SEEK IMMEDIATE MEDICAL CARE IF: You [...] of Agriculture (USDA) National Nutrient Database at: http://www.nal.usda.gov/fnic/foodcomp/search/ Created using data from the USDA National Nutrient Database for Standard Reference. Available at http://www.55social.usda.gov/fnic/foodcomp/search/. Information adapted from: [facility]? Patient Information ?2009 [employer]. [facility] 2012 http://www.Typemock/contents/uabivwcisgfh-wzfszlm-wwuypd-the-basics Colonoscopy Care After Surgery Please read the instructions outlined below and refer to this sheet in the next few weeks. These discharge instructions provide you with general information on caring [facility] Your doctor may also give you [...] your doctor. Begin wit (more content not included)...[facility] note Future Appointments Appointment Date:01/01/2024 11:00:00 AM Scheduled Provider: Location:[facility] Services Appointment Type:Surgery FT Appointment Date:01/18/2024 08:45:00 AM Scheduled Provider:Vianca Waters MD Location:[facility] Appointment Type:[facility] Follow Up [facility] Evaluation + Plan note Future Appointments Appointment Date:01/18/2024 08:45:00 AM Scheduled Provider:Vianca Waters MD Location[facility] Appointment Type:[facility] Follow Up [facility] Evaluation + Plan note Future Appointments Appointment Date:09/19/2024 08:20:00 AM Scheduled Provider:JUDITH DELAROSA PA-C Location:[facility] Appointment Type:URO Office Visit [facility] evaluation + Plan note Future Appointments Appointment Date:10/31/2024 11:00:00 AM Scheduled Provider: Location:[facility] Surgical Services Appointment Type:Urology CALL PAT FT Appointment Date:11/03/2024 09:00:00 AM Scheduled Provider: Location:[facility] Services Appointment Type:Urology FT [facility] evaletbofw note* Diagnosis Onset Date Resolution Status Admit Date Achilles tendinitis, right leg acuteOctober 2024 12:33pm [facility] Work Phone: Evaluation note* Diagnosis Physical exam, pre-employment- Primary Health examination of defined subpopulation [facility] Diagnosis Right Achilles tendinitis- Primary Contracture of right ankle [facility] Narrative No data available for this section [facility] Hospital Discharge instructions No data available for this section [facility] Progress note No data available for this section [facility] Dig[facility] Health Reason for referral (narrative)No reason for referral information [facility]Prom[facility] Work Phone: Summary Purpose Family History No Family History Records Found Relationship Condition Age at Onset Recorded Date/T miguel family member Malignant neoplasm of colon Unknown Advance Directives No Advanced Directives Records Found Advance Directive Response Recorded Date/ Time Advance Directives No January 4:35pm Chief Complaint and Reason for Visit Chief Complaint Admit Date Right foot/heel pain no known injury Oct dilshad2024 12:33pm Reason for Visit Admit Date Achilles tendinitis, right leg December 142024 12:33pm Additional Source Comments (unrecognized sect ion and content) No Status Records FoundNo Status Records FoundNo Status Records FoundNo Status Records FoundNo Status Records FoundNo Status Records Found INFORMATION SOURCE (unrecogn ized section and content) DATE CREATED AUTHOR 02/18/2022 [facility] DATE CREATED AUTHOR AUTHOR'S ORGANIZ ATION 01/05/2024 [facility] DATE CREATED AUTHOR AUTHOR'S ORGANIZ ATION 06/14/2024 [facility] DATE CREATED AUTHOR AUTHOR'S ORGANIZ ATION 12/03/2024 [facility] DATE CREATED AUTHOR AUTHOR'S ORGANIZ ATION 12/20/2024 [facility] DATE CREATED AUTHOR AUTHOR'S ORGANIZ ATION 01/18/2025 [facility] EPIC Patient Care team informatio n (unrecognized section and content) Team Status: Active Member Role Status Dates COLLIN OronaC Primary Care Provider Active Team Status: Inactive Member Role Status Dates Brandy Gross APRN Attending Provider Active Start: December 14, 2024 End: December 14, 2024Elda Castrejon NP-CPrimary Care ProviderActiveStart: December 14, 2024 End: December 14, 2024 Goals (unrecognized section and content) Goals may be documented in a n alternate section Reason for Visit (unrecogniz ed section and content) ReasonCommentsFoot PainReasonCommentsFollow-upRt achilles FOR RECORDS PERTAINING TO PATIENTS WHO ARE [...] BE BASED ON THE PRIMARY CLINICAL RECORDS. [facility]. provides no warranty or guarantee of the accuracy or completeness of information in this document.
[2025-02-20] MEDS: 0.9 % SODIUM CHLORIDE 1,000 ML 1000 ML IV (19:51)
--- OUTSIDE RECORDS SUMMARY | 2025-02-20 19:51 | XMS_ITS | Clinical Summary ---
Author Organization [facility] [place] [address] Care Team Providers Care Family Court Counsellor Name Role Phone Pelon Roy MD Unavailable Encounters DateTypeDepartmentCare KebfLoonycptcyn95/10/2025Orders Only [facility] U[facility] [address] [place] [phone] Paty Campbell MA Scrotal pain (Primary Dx)12/18/2024 10:00 AM EDTOffice Visit [facility] [address] [place] [phone] Pelon Roy MD Scrotal pain (Primary Dx)12/05/2024Orders Only [facility] [address] [place] [address] ProviderElba MD from Last 3 Months Social History Tobacco UseTypesPacks/DayYears UsedDateSmoking Tobacco: FormerCigarettesPassive Smoke Exposure: PastSmokeless Tobacco: Former Tobacco Cessation:Counseling Given: Not Answered Comments:Yrs ago for a short time Alcohol UseStandard Drinks/WeekCommentsYes2 (1 standard drink = 0.6 oz pure alcohol)per monthSex and Gender InformationValueDate RecordedSex Assigned at FufhhDigj87/09/2025 9:57 AM EDTLegal OkhEybz8412/05/2024 8:19 AM EDTGender IdentityChoose not to ywmvepwy87/26/2025 8:31 AM EDTSexual OrientationChoose not to dahqfcuf77/26/2025 8:31 AM EDT Last Filed Vital Signs Vital SignReadingTime TakenCommentsBlood Oowpmipm317/8110/11/2024 10:05 AM EDT Anozz1273/11/2024 10:05 AM SPIPjprohfhuhl27.6 ??C (97.9 ??F)12/18/2024 10:05 AM EDTRespiratory Rate--Oxygen Saturation--Inhaled Oxygen Concentration--Jfmwko391 kg (235 lb 3.2 oz)12/18/2024 10:05 AM HWBUhdesc908.3 cm (5' 11 )12/18/2024 10:05 AM EDTBody Mass Index32.81 10:05 AM EDT Plan of Treatment Health MaintenanceDue DateLast DoneCommentsDepression Fukxzomww40/02/1998 Varicella Vaccines (1 of 2 - 13+ 2-dose series)1998Hepatitis B Vaccines (1 of 3 - 19+ 3-dose series)2004Adult Oksrqfk8603/13/2007HPV Vaccines (1 - 3- dose SCDM series)2012COVID-19 Vaccine ( - 2024- season)2024 Influenza Vaccine (#1)2024Zoster Vaccines (1 of 2)2035HIB Vaccines Aged OutNo longer eligible based on patient's age to complete this topicIPV VaccinesAged OutNo longer eligible based on patient's age to complete this topic Meningococcal B VaccineAged OutNo longer eligible based on patient's age to complete this topicMeningococcal VaccineAged OutNo longer eligible based on patient's age to complete this topicPneumococcal Vaccine: Pediatrics (0 to 5 Years) and At-Risk Patients (6 to 64 Years)Aged OutNo longer eligible based on patient's age to complete this topicRotavirus VaccinesAged OutNo longer eligible based on patient's age to complete this topic Insurance * Guarantor: Antoine GarciaAccount TypeRelation to PatientDate of BirthPhone Billing AddressPersonal/VqymerTmvq40/02/[address] [address] Care Teams Team MemberRelationshipSpecialtyStart DateEnd Date Pelon Roy MD [address] [place] [phone] Consulting TnoguujqsUswmqui26/9/25
--- OUTSIDE RECORDS SUMMARY | 2025-02-20 19:51 | XMS_ITS | Clinical Summary ---
Author Organization [facility] Address [address], [address] [place] [address] Care Team Providers Care Commercial Driver'S License Driver Name Role Phone Mariluz Jimenez MD Primary Care Provider Unavailab le Allergies Active AllergyReactionsCriticalityNoted VylrMhvdjiwpWvkwgxmaqamBpehc87/21/2020 Medications MedicationSigDispense QuantityRefillsLast FilledStart DateEnd DateStatus pantoprazole (PROTONIX) 40 MG tablet TAKE 1 TABLET BY MOUTH TWICE A DAY 30 MINUTES BEFORE MEALS04/20/2019Active Active Problems ProblemNoted DateDiagnosed VcopQozl34/21/2020 Social History Tobacco UseTypesPacks/DayYears UsedDateSmoking Tobacco: Every DayCigarettes0.515 Smokeless Tobacco: Never Tobacco Cessation:Ready to Q uit: No; Counseling Given: Yes Alcohol UseStandard Drinks/WeekCommentsYes0 (1 standard drink = 0.6 oz pure alcohol)Sex and Gender InformationValueDate RecordedSex Assigned at BirthNot on fileLegal QzeCtiw4704/21/2012 6:43 PM ESTGender IdentityNot on fileSexual OrientationNot on file Last Filed Vital Signs Vital SignReadingTime TakenCommentsBlood Ijkdigmh009/8904 9:34 AM EDT Hdrnu6445 9:34 AM AMTXaeekaneuif33.3 ??C (97.3 ??F)07/01/2019 9:34 AM EDTRespiratory Rate--Oxygen Saturation--Inhaled Oxygen Concentration--Weight 113.4 kg (250 lb)07/01/2019 9:34 AM MJBHbapdw864.3 cm (5' 11 )07/01/2019 9:34 AM EDTBody Mass Index34.8707/01/2019 9:34 AM EDT Plan of Treatment Not on file Care Teams Team MemberRelationshipSpecialtyStart DateEnd Date Mariluz Jimenez MD PCP - GeneralSpecialist07/01/19
--- OUTSIDE RECORDS SUMMARY | 2025-02-20 19:51 | XMS_ITS | Clinical Summary ---
Author Organization [facility] Address [address] [place] [address] Care Team Providers Care Pastoral Assistant Name Role Phone Unavailable Primary Care Provider Unavailabl e Allergies Active AllergyReactionsCriticalityNoted QotfTfoftcveLgopcexqshhAdpps95/07/2025 Medications MedicationSigDispense QuantityRefillsLast FilledStart DateEnd DateStatus tamsulosin (Flomax) 0.4 MG 24 hr capsule Take 0.4 mg by mouth DailyActive pantoprazole (ProtoNix) 40 MG EC tablet TAKE ONE TABLET BY MOUTH ONCE DAILY 30Active gabapentin (Neurontin) 300 MG capsule Take 300 mg by mouth in the morning and 300 mg before bedtime.5Active methylPREDNISolone (Medrol Dospak) 4 MG tablets Indications:Right Achilles tendinitisFollow schedule on MEDROL PACK package instructions to be used as directed 21 tablet 5Active Active Problems No known active problems Encounters DateTypeDepartmentCare FpedXbifclnendi40/07/2025 3:40 PM ESTOffice Visit [facility] [address] [place] [phone] Natanael Weaver DPM Right Achilles tendinitis (Primary Dx); Contracture of right ankle5Bamboo flowsheet [facility] [address] [place] [phone] Natanael Weaver DPM 01/09/2025 9:40 AM EDTOffice Visit [facility] [address] [place] [phone] Natanael Weaver DPM Right Achilles tendinitis (Primary Dx); Contracture of right ankle01/09/2025amboo flowsheet [facility] [address] [place] [phone] Natanael Weaver DPM 12/16/2024 4:30 PM EDTOffice Visit [facility] [address] [place] [phone] Kevin Carr, DO Physical exam, pre-employment (Primary Dx)12/16/2024Travelfrom Last 3 Months Family History RelationNameStatusCommentsFatherDeceasedMotherAlive Social History Tobacco UseTypesPacks/DayYears UsedDateSmoking Tobacco: FormerCigarettes Tobacco Cessation:Counseling Given: Yes Sex and Gender InformationValueDate RecordedSex Assigned at BirthNot on file Legal UqqDsjt9105/24/2022 6:47 PM EDTGender IdentityNot on fileSexual Orientation Not on file Last Filed Vital Signs Vital SignReadingTime TakenCommentsBlood Kfpyprpl688/8810 4:51 PM EDT Ryyob051412/16/2024 4:51 PM PXTTvziwktnfwa44.4 ??C (97.6 ??F)12/16/2024 4:51 PM EDTRespiratory Qchy329303/18/2024 3:23 PM ESTOxygen Avbgjjtghn21%12/16/2024 4:51 PM EDTInhaled Oxygen Concentration--Nypjyr018 kg (240 lb)01/16/2025 3:23 PM EST Oaeamv696.3 cm (5' 11 )01/16/2025 3:23 PM ESTBody Mass Index33.4711 3:23 PM EST Plan of Treatment Not on file Insurance [address] [place] [address]
--- OUTSIDE RECORDS SUMMARY | 2025-02-20 19:51 | XMS_ITS | Patient Health Record ---
Author Organization [facility] [place] Address [address] [place] [address] Care Team Providers Care Fire Prevention Captain Name Role Phone Elda Rao Primary Care Provider Allergies Allergen (clinical drug ingredient) Drug/Non Drug Allergy documented on EMR Reaction Allergy Type Onset Date Status PenicillinhivesDrug AllergyActive Results Component Value Reference Range Notes UA (CLEAN or CATCH) REVIVAL CLERK or M ICRO IF IND. Reviewed date:07/31/2024 02:10:44 PM Interpretation: Performing Lab: Notes/Report: [facility] , Color Urine LT. YELLOW YELLOW Clarity UrineCLEARCLEARSpecific [place] Urine>=1.0301.005-1.025pH Urine6.0 5.0-9.0Protein UrineNEGATIVENEG/TRACE mg/dLGlucose Urine UANEGATIVENEGATIVE mg/dLBilirubin UrineNEGATIVENEGATIVEKetones UrineNEGATIVENEGATIVE mg/dLBlood UrineNEGATIVENEGATIVENitrite UrineNEGATIVENEGATIVEUrobilinogen Urine0.20.2-1.0 EU/dLLeukocyte Esterase UrineNEGATIVENEGATIVEUrine Microscopic IndicatedNO Performing Lab:see noteML - [facility] LBUS SCROTUM Reviewed date:08/11/2024 11:45:35 AM Interpretation: Performing Lab: Notes/Report: Source Facility: [facility]-[address] [place] [address] [place] [address] Ultrasound Report Signed Patient: ANTOINE GARCIA MR#: [id number] : 1985 Acct:[id number] Age/Sex: 39 / M ADM Date: 08/09/24 Loc: US Attending Dr: Easton TAVARES Ordering Physician: Easton Alberts Date of Service: 08/09/24 Procedure(s): US scrotum Accession Number(s): [id number] cc: ELDA RAO ; Easton Alberts [facility] [place] [id number] Patient Name: ANTOINE GARCIA MRN: [facility]:[id number] date: 1985 Sex: M Assigned Patient Location: US Current Patient Location: US Accession/Order Number: [id number] Exam Date: 08/09/2024 14:49 Report Date: 08/09/2024 14:59 At the request of: EASTON TAVARES Procedure: US scrotum Scrotal ultrasound HISTORY: Left testicular pain for 3 weeks COMPARISON: None RIGHT testicle measures 5.3 x 2.1 x 2.1 cm. LEFT testicle measures 4.8 x 2.4 x 3.1 cm. No testicular mass or microcalcifications identified. Normal color flow of both testicles identified. RIGHT epididymal head measures 1.1 cm. LEFT epididymal head measures 1.0 cm. Multiple left epididymal head cyst seen with largest measuring up to 6 mm.. Left varicocele. Small right hydrocele. 5 mm thickening of scrotal wall. US/US scrotum IMPRESSION: Left varicocele. Left epididymal head cyst measuring up to 6 mm. Small right hydrocele. Normal testicles. Impression dictated by: Leonidas Palomo M.D. 08/09/2024 2:59 PM Dictation Location: [place] [address] Electronically authenticated by: [id number] Y Date: 08/09/2024 14:59 Dictated By: Leonidas Palomo D.O. Signed By: 08/09/24 1502 DD/ 1459 TD/TT: Folding Machine Tender:CBC AUTO DIFF Reviewed date:02/19/2025 12:08:02 PM Interpretation: Performing Lab: Notes/Report: [facility] ,White Blood Count14.24.0-11.0 10 3/uLRed Blood Count5.664.70-6.10 10 6/uL Epfbvhvzrw54.514.0-18.0 g/jMWiwiwyyjff03.242.0-54.0 %Mean Corpuscular Zaluqq76.9 80.0-94.0 fLMean Corpuscular Qycfcymcmv36.925.9-34.0 pgMean Corpuscular HGB Conc 35.629.9-35.2 g/dLRed Cell Distribution Width12.311.0-15.0 %Platelet Cauoy642 150-450 10 3/uLMean Platelet Volume9.39.5-13.5 fLNeutrophils Percent Auto86.1 43.0-75.0 %Lymphocytes Percent Auto6.720.5-60.0 %Monocytes Percent Auto5.91.7- 12.0 %Eosinophils Percent Auto0.50.9-7.0 %Basophils Percent Auto0.40.2-2.0 % Immature Granulocytes Pct Auto0.40.0-0.5 %Neutrophils Absolute Auto12.21.4-6.5 10 3/uLLymphocytes Absolute Auto1.01.2-3.8 10 3/uLMonocytes Absolute Auto0.80.3- 0.8 10 3/uLEosinophils Absolute Auto0.10.0-0.7 10 3/uLBasophils Absolute Auto0.1 0.0-0.1 10 3/uLImmature Granulocytes Abs Auto0.060.00-0.03 10 3/uLPerforming Lab:see noteML - [facility] LBLIPASE Reviewed date:02/19/2025 12:08:02 PM Interpretation: Performing Lab: Notes/Report: [facility] ,Clhimy24.016.0-77.0 U/LPerforming Lab:see noteML - [facility] LBPROF 14(COMP METB) Reviewed date:02/19/2025 12:08:02 PM Interpretation: Performing Lab: Notes/Report: [facility] ,Raqmue810327-545 mmol/LPotassium3.53.5-5.1 mmol/CTviziayw51052-249 mmol/LCarbon Keqgenn68.121.0-32.0 mmol/LAnion Gap14.7Vobggfr04741-998 mg/dLBlood Urea Kdcqnhiz05.07.0-18.0 mg/dLCreatinine0.940.70-1.30 mg/dLEstimated GFR ( Marisol>60>=60 mL/min/1.73m 2Estimated GFR (Non- Rebeka>60>=60 mL/min/1.73m 2BUN Creatinine Ratio14.9Yudqmwi9.58.5-10.1 mg/dLBilirubin Total0.90.2-1.0 mg/dL Aspartate Amino Soarfrwxspw7176-25 U/LAlanine Zkjsqjxgfnhthzgx6906-10 U/L Alkaline Ovztgempoyt1149-573 U/LTotal Protein8.16.4-8.2 g/dLAlbumin Level4.43.4- 5.0 g/dLGlobulin3.7Albumin Globulin Ratio1.2Performing Lab:see noteML - [facility] Reason For Referral Reason left testicular pain Diagnosis 1 Left testicular pain (N50.812) Referral Organization [facility] Referring Provider First Name Elda Referring Provider Last Name Jalen Referring Provider Speciality Family [facility] tania Referred Provider Jim Noble Referred Provider Specialty Urology Referral Priority Routine Medications Medication SIG (Take, Route, Frequency, Duration) Notes Start Date End Date Status Flomax 0.4 MG 1 capsule Orally Once a day ActiveCipro 500 MG1 tablet Orally every 12 hrs; Duration: 10 days10/14/2024 ActiveDiclofenac Sodium 75 MGTAKE 1 TABLET BY MOUTH TWICE A DAY NEEDED FOR 30 DAYS; Duration: 30ActivePantoprazole Sodium 40 mgTAKE ONE TABLET BY MOUTH ONCE DAILY; Duration: 30Active Social History Tobacco Use: Social History Observation Description Date Details (start date - stop date) Former Smoker 11/18/2003 - 11/26/2019 Tobacco Control (Standard) Question Answer Notes Tobacco use: Former smoker When did you start smoking?11/18/2003When did you stop smoking?11/26/2019AUDIT-C (Standard) Question Answer Notes Did you have a drink containing alcohol in the p ast year? No Lulana7LbolzdslrzbixgKzguoccy Problems Problem Type SNOMED Code ICD Code Onset Dates Problem Status W/U Status Risk Notes Problem Gastroesophageal ref lux disease (766227572) GERD (gastroesophageal reflux disease) (K21.9) Activeconfirmed Vital Signs Blood pressure diastolic 80 mm Hg 10/14/2024 Pvfcxc33 in10/14/2024lood pressure mm Hg10/14/20246588Ihkwwp414 lbs 10/14/2024BMI33.61 kg/m210/14/2024 Encounters Encounter Location Date Provider Diagnosis [facility] [address] [place] [address] 04/24/2024 Elda Rao Tendonitis M77.9 and Left flank pain R10.9 [facility] [address] [place] [address] 10/14/2024 Elda Rao Left testicular pain N50.812 [facility] [address] [place] [address] 10/07/2024 Elda Rao [facility] [place] [address] 10/14/2024Elda Roa Assessments Encounter Date Diagnosis (ICD Code) Assessment Notes Treatment Notes Treatment Clinical Notes Section Notes 04/24/2024 Tendonitis (ICD-10 - M77.9) 04/24/2024Left flank pain (ICD-10 - R10.9) discussed imaging continue to monitor 10/14/2024Left testicular pain (ICD-10 - N50.812) Plan Of Treatment No Information Insurance Providers Payer Name Payer Address Payer Phone Subscriber Number Group Number Insured Name Patient Relationship to Insured Coverage Start Date Coverage End Date MMO [employer] P[employer] [address] [address] [place] [phone] [id number] Dima Garcia - patient is the spouse of the insured Medical (General) History Medical History History ICD Code GERD (gastroesophageal reflux disease) K 21.9 Surgical History Surgery Date(Month/Year) EGD/Colonoscopy- multiple TonsillectomyHospitalization History Reason Date(Month/Year) denies
[2025-02-20] MEDS: FAMOTIDINE/PF 20 MG/2 ML VIAL IV (19:52)
[2025-02-20 19:55] VITALS: BP 123/75; PULSE 85; O2SAT 94
[2025-02-20 19:58] LABS: Hematocrit 47.5 % (42.0-54.0); Hemoglobin 16.6 g/dL (14.0-18.0); Immature Granulocytes Abs Auto 0.04 10^3/uL (0.00-0.03); Immature Granulocytes Pct Auto 0.6 % (0.0-0.5); Lymphocytes Absolute Auto 2.3 10^3/uL (1.2-3.8); Mean Corpuscular HGB Conc 34.9 g/dL (29.9-35.2); Mean Corpuscular Hemoglobin 30.3 pg (25.9-34.0); Mean Corpuscular Volume 86.7 fL (80.0-94.0); Platelet Count 306 10^3/uL (150-450); Red Blood Count 5.48 10^6/uL (4.70-6.10); White Blood Count 6.8 10^3/uL (4.0-11.0)
[2025-02-20 20:18] LABS: Alanine Aminotransferase 66 U/L (16-63); Albumin Globulin Ratio 1.0; Albumin Level 3.6 g/dL (3.4-5.0); Alkaline Phosphatase 69 U/L (46-116); Anion Gap 9.6; Aspartate Amino Transferase 39 U/L (15-37); Blood Urea Nitrogen 12.0 mg/dL (7.0-18.0); Calcium 9.0 mg/dL (8.5-10.1); Carbon Dioxide 29.5 mmol/L (21.0-32.0); Chloride 102 mmol/L (98-107); Estimated GFR (African America >60 (>=60 mL/min/1.73m^2); Estimated GFR (Non-African Ame >60 (>=60 mL/min/1.73m^2); Globulin 3.7 g/dL; Glucose 114 mg/dL (74-106); Lipase 28.0 U/L (16.0-77.0); Potassium 4.1 mmol/L (3.5-5.1); Sodium 137 mmol/L (136-145); Total Protein 7.3 g/dL (6.4-8.2)
--- NOTE | 2025-02-20 22:00 | ED.GENADUL1 ---
HPI HPI - General Adult General Chief complaint: Nausea/Vomiting/Diarrhea Stated complaint: Vomiting, diarrhea, nausea Time Seen by Provider: 02/20/25 19:17 Source: patient Mode of arrival: walk-in Limitations: no limitations History of Present Illness HPI narrative: Patient is a 39-year-old male presenting to the emergency department for evaluation of nausea, vomiting, and diarrhea. He states that over the last 6 days he has been having persistent nausea, vomiting, and diarrhea. He states his symptoms started to improve, however acutely worsened a few hours ago. He is asking for more time off of work as his GI symptoms are making it difficult to do his job. He denies any abdominal pain. No fevers or chills. No history of abdominal surgeries. He does not smoke marijuana daily. He denies recent travel outside of the country. No recent antibiotic use. Related Data Home Medications ?Medication ?Instructions ?Recorded ?Confirmed pantoprazole 40 mg tablet,delayed 40 mg PO DAILY 07/30/24 02/20/25 release tamsulosin 0.4 mg capsule 0.4 mg PO DAILY 02/18/25 02/20/25 Previous Rx's ?Medication ?Instructions ?Recorded ondansetron 4 mg disintegrating 4 mg PO Q8H PRN nausea and 02/18/25 tablet vomiting #12 tabs Allergies Allergy/AdvReac Type Severity Reaction Status Date / Time Penicillins Allergy Severe Hives Verified 02/20/25 17:08 Opioid HPI Opioid Management Most Recent Opioid Data: Last Pain Scale 3 04/11/24, 12:08 Review of Systems ROS Status of ROS 10 or more systems reviewed and unremarkable except as noted in history and below PFSH PFSH Social History Little interest or pleasure in doing things: not at all Feeling down, depressed, or hopeless: not at all Exam Narrative Exam Narrative: CONSTITUTIONAL: Well-appearing, answering questions and following commands appropriately SKIN: Was warm and dry. EYES: Sclerae white. EARS, NOSE, THROAT: Moist oral mucosa. RESPIRATORY: Clear to auscultation bilaterally, no wheezes, crackles, or stridor, no use of accessory muscles CARDIOVASCULAR: Normal rate and regular rhythm. There is no S3, S4, murmur, rub. GASTROINTESTINAL: Abdomen is soft, nontender, and nondistended. No rebound tenderness or guarding. MUSCULOSKELETAL: No peripheral edema. NEUROLOGIC: Patient is awake and alert. Facies were symmetrical. Constitutional Vital Signs, click to edit/add: Last Vital Signs Temp 98.2 F 02/20/25 17:09 Pulse 85 02/20/25 19:55 Resp 20 02/20/25 19:55 BP 123/75 02/20/25 19:55 Pulse Ox 94 L 02/20/25 19:55 O2 Del Method Room Air 02/20/25 19:55 Course Vital Signs Vital signs: Vital Signs Temperature 98.2 F 02/20/25 17:09 Pulse Rate 97 H 02/20/25 17:09 Respiratory Rate 12 02/20/25 17:09 Blood Pressure 155/80 H 02/20/25 17:09 Pulse Oximetry 94 L 02/20/25 17:09 Oxygen Delivery Method Room Air 02/20/25 17:09 Temperature 98.2 F 02/20/25 17:09 Pulse Rate 85 02/20/25 19:55 Respiratory Rate 20 02/20/25 19:55 Blood Pressure 123/75 02/20/25 19:55 Pulse Oximetry 94 L 02/20/25 19:55 Oxygen Delivery Method Room Air 02/20/25 19:55 Medical Decision Making MDM Narrative Medical decision making narrative: Patient is a 39-year-old male presenting to the emergency department for evaluation of nausea, vomiting, diarrhea x 7 days. His vital signs arrival are within normal limits. He is afebrile and hemodynamically stable. Examination as noted above. My clinical impression is that the patient symptoms are secondary to gastroenteritis. No recent travel outside of the country to put him at risk for parasitic infections. No recent antibiotic use or hospitalizations to put him at risk for C. difficile. Patient's exam is not consistent with surgical etiologies of abdominal pain such as appendicitis, cholecystitis, or perforated viscus. IV was established laboratory studies were obtained to rule out underlying electrolyte/metabolic treatment. Given that this is his second ED visit in the last 7, I did elect to obtain a CT abdomen to rule out any intra-abdominal pathologies. He was given 1 L bolus normal saline, IV Zofran, IV famotidine for symptomatic treatment. Laboratory studies were unremarkable. No significant electrolyte or metabolic derangement. No evidence of acute kidney injury. No anemia, leukocytosis, or thrombocytopenia. No significant transaminitis or hyperbilirubinemia. Lipase not elevated. CT abdomen/pelvis independently reviewed and interpreted by myself and radiology demonstrated evidence of enteritis. On reevaluation, patient states he feels improved and feels comfortable and discharged home. I do believe the patient is stable for discharge. They were instructed to follow up with their PCP for further care. Return precautions were given including any new or worsening symptoms. Patient understands and agrees to the plan. FINAL IMPRESSION: #Acute gastroenteritis DISPOSITION: Discharged home CONDITION: Good Medical Records Medical records reviewed: Yes I reviewed the patient's medical records Lab Data Lab results reviewed: Yes I reviewed the patient's lab results Labs: Lab Results 02/20/25 Range/Units 19:45 WBC 6.8 (4.0-11.0) 10^3/uL RBC 5.48 (4.70-6.10) 10^6/uL Hgb 16.6 (14.0-18.0) g/dL Hct 47.5 (42.0-54.0) % MCV 86.7 (80.0-94.0) fL MCH 30.3 (25.9-34.0) pg MCHC 34.9 (29.9-35.2) g/dL RDW 12.0 (11.0-15.0) % Plt Count 306 (150-450) 10^3/uL MPV 9.7 (9.5-13.5) fL Neut % (Auto) 47.6 (43.0-75.0) % Lymph % (Auto) 33.7 (20.5-60.0) % [place] % (Auto) 16.3 H (1.7-12.0) % Eos % (Auto) 1.2 (0.9-7.0) % Baso % (Auto) 0.6 (0.2-2.0) % Neut # (Auto) 3.2 (1.4-6.5) 10^3/uL Lymph # (Auto) 2.3 (1.2-3.8) 10^3/uL [place] # (Auto) 1.1 H (0.3-0.8) 10^3/uL Eos # (Auto) 0.1 (0.0-0.7) 10^3/uL Baso # (Auto) 0.0 (0.0-0.1) 10^3/uL Abs Immat Gran (auto) 0.04 H (0.00-0.03) 10^3/uL Imm/Tot Granulo (auto) 0.6 H (0.0-0.5) % Sodium 137 (136-145) mmol/L Potassium 4.1 (3.5-5.1) mmol/L Chloride 102 (98-107) mmol/L Carbon Dioxide 29.5 (21.0-32.0) mmol/L Anion Gap 9.6 BUN 12.0 (7.0-18.0) mg/dL Creatinine 1.05 (0.70-1.30) mg/dL Est GFR ( Amer) >60 (>=60 mL/min/1.73m^2) Est GFR (Non-Af Amer) >60 (>=60 mL/min/1.73m^2) BUN/Creatinine Ratio 11.4 Glucose 114 H (74-106) mg/dL Calcium 9.0 (8.5-10.1) mg/dL Total Bilirubin 0.5 (0.2-1.0) mg/dL AST 39 H (15-37) U/L ALT 66 H (16-63) U/L Alkaline Phosphatase 69 (46-116) U/L Total Protein 7.3 (6.4-8.2) g/dL Albumin 3.6 (3.4-5.0) g/dL Globulin 3.7 g/dL Albumin/Globulin Ratio 1.0 Lipase 28.0 (16.0-77.0) U/L Imaging Data CT scan - abdomen: Attestation: I personally reviewed and interpreted this imaging study as follows: Radiologist's impression: ITS Impressions Abdomen/Pelvis CT 02/20/25 19:20 IMPRESSION: Scattered bowel air-fluid levels may raise possibility for enterocolitis or diarrhea illness. Otherwise negative acute inflammatory process or bowel obstruction Impression dictated by: Fareed Green M.D. 02/20/2025 8:28 PM Dictation Location: [place] [id number] Electronically authenticated by: [id number] Y Date: 02/20/2025 20:28 Discharge Plan Discharge Chief Complaint: Nausea/Vomiting/Diarrhea Clinical Impression: Gastroenteritis Patient Disposition: Home, Self-Care Time of Disposition Decision: 20:51 Condition: Good Mode of Transportation: Private Vehicle Prescriptions / Home Meds: No Action pantoprazole 40 mg tablet,delayed release (DR/EC) 40 mg PO DAILY tamsulosin 0.4 mg capsule 0.4 mg PO DAILY ondansetron 4 mg tablet,disintegrating 4 mg PO Q8H PRN (Reason: nausea and vomiting) Qty: 12 0RF Print Language: Irish Instructions: Gastroenteritis (ED) Referrals: YOEL CASTREJON [Primary Care Provider, Family Practice] - 1 week Discharge Date/Time: 02/20/25 21:13
== END 2025-02-20 21:13 | disposition home or self-care (01) ==
PROVIDERS: Emergency Provider Student in an Organized Health Care Education/Training Program; PCP Nurse Practitioner Family
DX: K52.9 Noninfective gastroenteritis and colitis, unspecified (principal)
CPT/HCPCS: 36415; 74177; 80053; 83690; 85025; 96361; 96374; 96375; 99285; J2405; J3490; Q9967